=== PATIENT | female | born 1960 | race Caucasian/White ===

== ENCOUNTER 2019-03-09 10:24 | Outpatient (CLI) | payer MEDICARE, OTHER, SELFPAY ==
[2019-03-09 11:12] LABS: Hemoglobin A1C 5.3 % (<5.7)
[2019-03-09 11:13] LABS: Alanine Aminotransferase 9 U/L (4-35); Albumin Level 3.6 g/dL (3.5-5.1); Alkaline Phosphatase 151 U/L (38-126); Aspartate Amino Transferase 18 U/L (14-36); Bilirubin,Total 0.2 mg/dL (0.2-1.3); Blood Urea Nitrogen 17 mg/dL (7-17); Calcium 8.7 mg/dL (8.4-10.2); Carbon Dioxide 26 mmol/L (22-30); Chloride 98 mmol/L (98-107); Cholesterol 167 mg/dL (0-200); Estimated Glomerular Filt Rate 57; Glucose 91 mg/dL (65-105); HDL Direct 65 mg/dL; Potassium 4.8 mmol/L (3.4-5.0); Sodium 132 mmol/L (137-145); Triglycerides 82 mg/dL (<150)
[2019-03-09 11:25] LABS: LDL Cholesterol Direct 88 mg/dL
== END 2019-03-09 10:25 | disposition home or self-care (01) ==
PROVIDERS: PCP Internal Medicine; Visit Provider Nurse Practitioner
DX: E78.2 Mixed hyperlipidemia (principal); E11.9 Type 2 diabetes mellitus without complications
CPT/HCPCS: 36415; 80048; 80061; 80076; 83036

== ENCOUNTER 2019-03-11 16:05 | Outpatient (CLI) | payer MEDICARE, OTHER, SELFPAY ==
--- NOTE | ~2019-03-11 | XR_ITS ---
XR foot LT min 3V 03/11/2019 16:33 Indication: Left foot pain after recent fall Procedure: 4 views left foot Comparison: Comparison to multiple prior studies sequentially, with oldest reviewed study dated 07/2018. Findings: There is an acute minimally displaced transverse fracture fourth metatarsal diaphysis. Ther e are healing distal tibial and fibular metadiaphyseal fractures. Osteopenia. 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 Mild hallux valgus. There is periosteal reaction along the third metata rsal. Lisfranc joint intact. There are degenerative calcaneal enthesophytes. There are arterial calci fications. There are moderate degenerative changes of the midfoot. Impression: 1: Acute minimally displaced extra-articular fracture left fourth metatarsal. 2: Healing distal tibial and fibular metadiaphyseal fractures. Reviewed, dictated and finalized at location A. [employer]IST Impression: 1: Acute minimally displaced extra-articular fracture left fourth metatarsal. 2: Healing distal tibial and fibular metadiaphyseal fractures.
== END 2019-03-11 16:06 | disposition home or self-care (01) ==
LOC: ANHIMG 16:11
PROVIDERS: PCP Internal Medicine; Visit Provider Internal Medicine
DX: M79.672 Pain in left foot (principal); S92.342A Displaced fracture of fourth metatarsal bone, left foot, initial encounter for closed fracture; S82.392D Other fracture of lower end of left tibia, subsequent encounter for closed fracture with routine healing; S82.832D Other fracture of upper and lower end of left fibula, subsequent encounter for closed fracture with routine healing
CPT/HCPCS: 73630

== ENCOUNTER 2019-03-30 05:09 | Day surgery (SDC) | payer MEDICARE, OTHER, SELFPAY ==
[2019-03-30] VITALS (9 sets, daily range): BP systolic 127–166; BP diastolic 66–98; PULSE 72–78; RESP 16–18; TEMP 36.6–37.1; O2SAT 98–100; BMI 29.6
[2019-03-30 07:57] LABS: Basophils Percent Auto 0.3 % (0.2-1.2); Eosinophils Percent Auto 0.3 % (0-4.4); Hematocrit 29.3 % (37.0-47.0); Hemoglobin 8.9 g/dL (12.0-15.0); Immature Granulocyte Absolute 0.04 K/mm3 (0.00-0.031); Immature Granulocyte Percent A 0.5 % (0-0.5); Lymphocytes Absolute Auto 0.79 K/mm3 (0.9-3.2); Lymphocytes Percent Auto 10.3 % (18.3-44.2); Mean Corpuscular HGB Conc 30.4 g/dl (32-36); Mean Corpuscular Hemoglobin 25.9 pg (26-34); Mean Corpuscular Volume 85.4 fl (80-100); Mean Platelet Volume 9.9 fl (7.4-10.4); Monocytes Absolute Auto 0.7 K/mm3 (0.1-0.6); Monocytes Percent Auto 9.6 % (2.6-8.5); Neutrophils Absolute Auto 6.1 K/mm3 (1.3-6.7); Platelet Count Result 254 k/mm3 (150-375); Red Blood Count 3.43 M/mm3 (4.2-5.4); Red Cell Distribution Width 16.2 % (11.5-14.5); White Blood Count 7.7 K/mm3 (4.5-10.0)
[2019-03-30 08:08] LABS: INR 0.9; Prothrombin Time 12.3 Seconds (11.1-14.7)
[2019-03-30 08:14] LABS: Blood Urea Nitrogen 15 mg/dL (7-17); Calcium 9.2 mg/dL (8.4-10.2); Carbon Dioxide 24 mmol/L (22-30); Chloride 102 mmol/L (98-107); Estimated CRCL calculation 46 ml/min; Estimated Glomerular Filt Rate 51; Glucose 92 mg/dL (65-105); Potassium 4.7 mmol/L (3.4-5.0); Sodium 136 mmol/L (137-145)
--- NOTE | 2019-03-30 08:58 | WPDMODSED ---
Moderate Sedation Note-Pt Data Patient Data Diagnosis: Atypical chest pain abnormal nuclear stress test echocardiographic evidence of pulmonary hypertension Present Complaint: intermittent chest pain Procedure to be performed/Plan: right and left heart catheterization Allergies Allergy/AdvReac Type Severity Reaction Status Date / Time No Known Allergies Allergy Verified 03/25/19 11:21 Home Medications Medication Instructions Recorded Confirmed Type gabapentin 300 mg capsule 300 mg PO TID #270 cap 01/04/19 03/29/19 Rx metformin 500 mg tablet 500 mg PO BID #180 tablet 01/04/19 03/29/19 Rx aripiprazole [Abilify] 2 mg PO DAILY 02/23/19 03/29/19 History hydrocodone-acetaminophen 7.5 - 325 tablet PO TID 02/23/19 03/29/19 History buspirone 15 mg tablet 15 mg PO DAILY tablet 03/11/19 03/29/19 History escitalopram oxalate 20 mg tablet 20 mg PO DAILY tablet 03/11/19 03/29/19 History lisinopril 5 mg tablet 5 mg PO DAILY tablet 03/11/19 03/29/19 History naproxen 500 mg tablet 500 mg PO BID PRN tablet 03/11/19 03/29/19 History pravastatin 20 mg tablet 20 mg PO DAILY tablet 03/11/19 03/29/19 History ropinirole 0.5 mg tablet 1 mg PO DAILY #90 tablet 03/11/19 03/29/19 Rx dextroamphetamine-amphetamine ER 30 mg PO DAILY #30 cap 03/15/19 03/29/19 Rx 30 mg 24hr capsule,extend release cyclobenzaprine 10 mg tablet 10 mg PO TID PRN #270 tablet 03/25/19 03/29/19 Rx aspirin [Aspir-81] 81 mg PO DAILY 03/29/19 03/29/19 History biotin-keratin [Biotin Plus See Rx Instructions .ROUTE .COMPLEX 03/29/19 03/29/19 History Keratin] cholecalciferol (vitamin D3) 5,000 unit PO DAILY 03/29/19 03/29/19 History cranberry 400 mg PO DAILY 03/29/19 03/29/19 History docusate sodium [Stool Softener] 50 mg PO BID 03/29/19 03/29/19 History omeprazole 40 mg PO DAILY 03/29/19 03/29/19 History sumatriptan succinate [Imitrex] 50 mg PO ONCE PRN 03/29/19 03/29/19 History suvorexant [Belsomra] 20 mg PO HS 03/29/19 03/29/19 History Current Medications: Active Medications Sodium Chloride (Normal Saline Iv) 500 mls @ 100 mls/hr IV CONT .Q5H [facility] Sedation/Anesthesia: No previous sedation/anesthesia problems (including family history). [facility] Social History Social History Smoking status: Never smoker Alcohol intake: never Substance use: unknown Gender identity (if verbalized by the patient): Female Mod Sed Physical Exam Physical Exam Pre Procedural Exam: Normal: Neck, Throat, Airway, Lungs, Heart Size, Heart Rate, Heart Rhythm, Neuro Exam and Extremities and Variation: Appearance ( obese white female appearing her stated age in no distress) Hours since solid foods: 12 Hours since liquid intake: 12 Internal Medicine - PN: Obj Da Vital Signs Vital Signs: Vital Signs - 24 hr 03/30/19 07:54 Temperature 36.9 C Pulse Rate 72 Respiratory Rate 16 Blood Pressure 162/75 H Pulse Oximetry 99 Intake/Output Intake/Output: Intake & Output 03/27/19 03/28/19 03/29/19 03/30/19 23:59 23:59 23:59 23:59 Intake Total 0 Output Total 0 Balance 0 Meds/Results Medications: Active Medications Generic Name Dose Route Start Last Admin Trade Name Freq PRN Reason Stop Dose Admin Sodium Chloride 500 mls @ 100 mls/hr 03/30/19 06:55 Normal Saline Iv IV CONT .Q5H [facility] Labs CBC & Chem 7: 03/30/19 07:51 03/30/19 07:51 Labs: Laboratory Results - last 24 hr 03/30/19 03/30/19 03/30/19 07:51 07:51 07:51 WBC 7.7 RBC 3.43 L Hgb 8.9 L Hct 29.3 L MCV 85.4 MCH 25.9 L MCHC 30.4 L RDW 16.2 H Plt Count 254 MPV 9.9 Immature Gran % (Auto) 0.5 Neut % (Auto) 79.0 H Lymph % (Auto) 10.3 L Warren % (Auto) 9.6 H Eos % (Auto) 0.3 Baso % (Auto) 0.3 Lymph # (Auto) 0.79 L Warren # (Auto) 0.7 H Eos # (Auto) 0.0 Baso # (Auto) 0.0 Abs Immat Gran (auto) 0.04 H Absolute Neuts (auto) 6.1 Absolute Nucl
--- NOTE | 2019-03-30 09:45 | WPDCARDPROC ---
Cardiac Cath Procedure Note Date of procedure:: 03/30/19 Performing physician:: Donny Peters MD Indication:: intermittent chest pain abnormal nuclear stress test echocardiographic evidence of pulmonary hypertension Brief clinical history:: 59-year-old woman with history of intermittent chest pain which by history seems atypical, nonexertional. A nuclear stress test was abnormal suggesting an anterior ischemic defect. For this reason angiography has been recommended. Because echocardiogram suggests pulmonary hypertension right heart catheterization has also been requested. Procedure Procedure performed:: Right and left heart catheterization Angio-Seal to right femoral artery Sedation/Medication given:: fentanyl 50 mg Versed 2 mg case start time 9:13 a.m. case end time 9:43 a.m. sedation provided by Job Benoit RN, trained observer Access site:: right femoral artery, right femoral vein Estimated blood loss:: 20-30 cc Procedure note:: patient was brought to the cardiac catheterization lab in the postabsorptive state the right femoral triangle was prepared in the usual fashion. Anesthesia was provided with 1% lidocaine infiltrated locally using the modified Seldinger technique a 5 [place] sheath was placed into the femoral artery and then S7 [place] sheath into the femoral vein. Right heart catheterization was then performed using a balloon tip [place] catheter demonstrating right-sided hemodynamics and also injecting thermodilution cardiac outputs. Following this the [place] catheter was withdrawn and a 5 [place] angle pigtail catheter was placed into the arterial circulation. The left ventricle was injected used in the CHILDS projection and left-sided hemodynamics and pullback pressures across the aortic valve were also collected. A 5 [place] FL4 catheter was used to engage inject the left coronary in multiple projections. A 5 [place] JR4 catheter was placed into the aortic root and I was unable to satisfactorily engage the RCA ostium. This was then withdrawn and a 5 [place] WRP catheter was easily engaged into the right coronary and which was then injected orthogonal projections. Procedure was then terminated angiogram was done of the femoral artery through the sheath after which an Angio-Seal device was deployed at the site of the arterial puncture with a good hemostatic result. During the procedure I did administer 20 mg of intravenous labetalol for systemic hypertension. Findings:: Right atrial pressure is 7 mmHg right ventricle 40/ 5 end-diastolic pressure 10. pulmonary artery 40 over 18 pulmonary capillary wedge pressure 17 central aorta 206 over 94 left ventricle 206 over 3 and diastolic 24 for mode thermodilution cardiac output measured 6.0 liters/minute giving an index of 3.44 the left ventricle is normal in size all segments contract appropriately the global ejection fraction is in the vicinity of 50% by visual estimation there were no regional wall motion abnormalities. The left main coronary artery is short and widely patent immediately bifurcating into the LAD and circumflex the LAD is a medium caliber vessel which is quite tortuous but otherwise angiographically normal. Circumflex is a medium caliber vessel giving rise to the marginal branches and posterolateral branches. The circumflex is smooth and angiographically unremarkable right coronary artery is dominant to the posterior circulation is of medium caliber this angiographically appears to be smooth and normal the RPDA is small but does not appear to be diseased Conclusion:: angiographically non diseased coronary arteries with right coronary dominant circulation preserved left ventricular systolic function marked systemic hypertension with elevated LVEDP modestly elevated pulmonary artery pressures normal cardiac output
--- NOTE | 2019-03-30 12:15 | SUR.PHASEII ---
2 HOURS BEDREST COMPLETE. UP TO BATHROOM TO VOID. STEADY GAIT. RETURNED TO RECLINER AT BEDSIDE. NO NEW CHANGES. VSS. WILL CONTINUE TO MONITOR. LUNCH SERVED. AT BEDSIDE.
--- NOTE | 2019-03-30 14:20 | SUR.PHASEII ---
DRESSED FOR DISCHARGE HOME. REVIEWED DISCHARGE INSTRUCTIONS, WOUND CARE, AND FOLLOW UP W/ PT. AND . ALL QUESTIONS ANSWERED. VOICED UNDERSTANDING OF ALL.
--- NOTE | 2019-03-30 14:27 | SUR.PHASEII ---
DISCHARGED HOME, OUT VIA WC WITH ALL PERSONAL BELONGINGS AND DISCHARGE INSTRUCTIONS TO 'S WAITING CAR. DENIES PAIN OR SOB. STEADY GAIT. STRONG R. PEDAL PULSE. NO DISTRESS NOTED.
== END 2019-03-30 14:27 | disposition home or self-care (01) ==
PROVIDERS: PCP Internal Medicine; Visit Provider Specialist
PROC: 4A023N8 Measurement of Cardiac Sampling and Pressure, Bilateral, Percutaneous Approach (ICD-10-PCS; CPT 93453; principal; 2019-03-30 08:30)
DX: R94.39 Abnormal result of other cardiovascular function study (principal); R07.89 Other chest pain; I10 Essential (primary) hypertension; D64.9 Anemia, unspecified; E11.9 Type 2 diabetes mellitus without complications; E78.5 Hyperlipidemia, unspecified; Z79.82 Long term (current) use of aspirin; Z79.84 Long term (current) use of oral hypoglycemic drugs
CPT/HCPCS: 36415; 80048; 85025; 85610; 93460; C1760; C1887; C1894; G0269; J1644; J2250; J3010; J7040

== ENCOUNTER 2019-04-06 14:19 | Outpatient (CLI) | payer MEDICARE, OTHER, SELFPAY ==
--- NOTE | 2019-04-19 02:30 | SLEEP_ITS ---
Basic Nocturnal Polysomnogram DATE OF STUDY: 04/06/2019 ORDERING PHYSICIAN: Ezequiel Del Toro M.D. REASON FOR THE STUDY: Hypersomnia. HISTORY: The patient is a 59-year-old female, 63 inches tall, weighing 162 pounds for a body mass index of 28.7. She has problems with restless leg sensation for many years. She does not awaken from sleep short of breath. Occasionally, she awakens at night with heartburn, belching, or coughing. She rarely snores and says it is never loud enough for others to complain about it. She occasionally has trouble sleeping with a cold, does not gasp for breath at night. She occasionally has problems witnessed by others with her breathing at night. She does not sweat excessively at night and does not notice her heart pounding irregularly at night. She occasionally falls asleep during the day, occasionally involuntarily, rarely while driving. She does not fall asleep with physical effort and does not have loss of muscle tone with strong emotion. She does not have daytime difficulties due to excessive sleepiness. She describes herself as a [id number] grandmother. She does not have paralysis on waking or falling asleep. She occasionally has vivid dreamlike scenes upon awakening or falling asleep. She is never afraid to go to sleep. She does not have nightmares. She rarely remembers her dreams. She frequently has racing thoughts. She rarely feels sad or depressed. She frequently has anxiety. She occasionally has muscular tension. She constantly notices parts of her body jerking. She occasionally kicks at night. She rarely has crawly achy feelings in her legs. She frequently has leg pain at night. She does not have morning jaw pain. She frequently is bothered by pain during the day and is awakened by pain at night. She does not wake up feeling stiff in the morning. She occasionally has sore achy muscles. She rarely wakes up with pain in the neck and spine. She has stomach problems, fatigue, insomnia, concentration difficulties, and headaches. Normal bedtime is between 1 and 2 a.m. It takes a different amount of time to fall asleep under different circumstances. She typically wakes up 3 times at night. She will go to the bathroom and get a drink. She usually gets 4-5 hours of sleep at night. She wakes up during the day between 8:30 and 9 a.m. Weekend schedule is similar. She describes herself as a light sleeper. She sometimes takes naps. A short nap may be refreshing. She says she consistently feels good in the morning. MEDICAL COMORBIDITIES: Chest pain, restless legs, hypertension, syncopal episodes, history of hyponatremia, anemia requiring iron infusions, diabetes mellitus, hyperlipidemia, arthritis, gastroesophageal reflux disease, pulmonary hypertension with a right ventricular systolic pressure 47 on an echo on 04/03/2019. EF 75%. MEDICATIONS: 1. Adderall XR 25 mg 1 tablet in the morning. 2. Xanax 1 mg p.r.n. 3. Abilify 2 mg a day. 4. Aspirin 325 mg a day. 5. Belsomra 20 mg to take at bedtime. 6. Biotin 5000 mcg daily. 7. Buspirone 15 mg t.i.d. 8. Cholecalciferol (vitamin D3) 1 daily. 9. Citalopram 10 mg daily. 10. Cranberry with ascorbic acid 1 capsule daily. 11. Cyclobenzaprine 10 mg 3 times a day as needed. 12. Fluticasone nasal spray 50 mcg 2 sprays each nostril daily. 13. Gabapentin 300 mg 4 times a day. 14. Hydrocodone/acetaminophen 7.5/325 one tablet as needed for 30 days. 15. Lisinopril 5 mg a day. 16. Metformin 500 mg in the morning and the evening meal. 17. Naprosyn 500 mg twice a day with food. 18. Omeprazole 40 mg a day. 19. Pravastatin 20 mg a day. 20. Ropinirole 0.5 mg at bedtime. 21. Rosuvastatin 5 mg daily. 22. Sodium chloride tablets 1 g by mouth twice a day. 23. Sumatriptan 50 mg p.r.n. head
== END 2019-04-06 14:20 | disposition home or self-care (01) ==
LOC: ANHCSM 06-23 14:19
PROVIDERS: PCP Internal Medicine; Visit Provider Internal Medicine Cardiovascular Disease
DX: G47.10 Hypersomnia, unspecified (principal)
CPT/HCPCS: 95810

== ENCOUNTER 2019-05-10 13:14 | Outpatient (CLI) | payer MEDICARE, OTHER, SELFPAY ==
[2019-05-10 14:33] LABS: Blood Urea Nitrogen 17 mg/dL (7-17); Carbon Dioxide 30 mmol/L (22-30); Chloride 91 mmol/L (98-107); Estimated Glomerular Filt Rate 57; Glucose 84 mg/dL (65-105); Potassium 4.9 mmol/L (3.4-5.0); Sodium 125 mmol/L (137-145)
== END 2019-05-10 13:15 | disposition home or self-care (01) ==
LOC: ANHLAB 13:25
PROVIDERS: PCP Internal Medicine; Visit Provider Internal Medicine Cardiovascular Disease
DX: E11.59 Type 2 diabetes mellitus with other circulatory complications (principal); I10 Essential (primary) hypertension
CPT/HCPCS: 36415; 80048

== ENCOUNTER 2019-05-26 12:45 | Outpatient (CLI) | payer MEDICARE, OTHER, SELFPAY ==
[2019-05-26 13:57] LABS: Blood Urea Nitrogen 20 mg/dL (7-17); Calcium 8.7 mg/dL (8.4-10.2); Carbon Dioxide 28 mmol/L (22-30); Chloride 87 mmol/L (98-107); Estimated Glomerular Filt Rate 51; Glucose 80 mg/dL (65-105); Potassium 5.6 mmol/L (3.4-5.0); Sodium 120 mmol/L (137-145)
== END 2019-05-26 12:46 | disposition home or self-care (01) ==
PROVIDERS: PCP Internal Medicine; Visit Provider Internal Medicine Cardiovascular Disease
DX: E87.1 Hypo-osmolality and hyponatremia (principal)
CPT/HCPCS: 36415; 80048

== ENCOUNTER 2019-05-26 16:50 | Emergency (ER) | payer MEDICARE, OTHER, SELFPAY ==
[2019-05-26 17:04] VITALS: BP 126/71; PULSE 85; RESP 16; TEMP 36.5; O2SAT 100
--- NOTE | 2019-05-26 17:07 | ECG_ITS ---
Measurements Intervals Snowflake Rate: 83 P: 17 PA: 139 QRS: 17 QRSD: 93 T: 45 QT: 349 QTc: 411 Interpretive Statements SINUS RHYTHM MINIMAL Q WAVES- INFERIOR LEADS BASELINE WANDER- V4-V6 BORDERLINE ECG Electronically Signed On 05-27-2019 7:03:51 CDT by Saul Pozo D.O.
[2019-05-26 17:28] VITALS: BP 108/57; PULSE 78
--- NOTE | 2019-05-26 17:29 | ED.RECABL ---
HPI - Recheck/Abnormal Lab/Rx General Chief Complaint: Recheck/Abnormal Lab/Rx Stated Complaint: abnormal lab results Time Seen by Provider: 05/26/19 17:05 Source: patient Mode of arrival: ambulatory Limitations: no limitations History of Present Illness HPI narrative: Patient is a 59-year-old female who presents to the emergency department with complaint of elevated potassium. Patient states she had blood work done today ordered by her dye weigher and was told her sodium was low and her potassium was high and she should be evaluated in the emergency department. Patient states her blood pressure medication was changed approximately a month or so ago which is what prompted the lab work to be completed today. Patient reports she was on lisinopril 5 mg daily and that was increased to 20 mg daily. MD complaint: abnormal lab Returns today for: called because of abnormal lab/test Context: called for abnormal lab result Associated symptoms: none Related Data Home Medications Medication Instructions Recorded Confirmed aripiprazole [Abilify] 2 mg PO DAILY 02/23/19 03/29/19 hydrocodone-acetaminophen 7.5 - 325 tablet PO TID 02/23/19 03/29/19 buspirone 15 mg tablet 15 mg PO DAILY tablet 03/11/19 03/29/19 escitalopram oxalate 20 mg tablet 20 mg PO DAILY tablet 03/11/19 03/29/19 naproxen 500 mg tablet 500 mg PO BID PRN tablet 03/11/19 03/29/19 Belsomra 20 mg PO HS 03/29/19 03/29/19 Biotin Plus Keratin See Rx Instructions .ROUTE .COMPLEX 03/29/19 03/29/19 Stool Softener 50 mg PO BID 03/29/19 03/29/19 aspirin [Aspir-81] 81 mg PO DAILY 03/29/19 03/29/19 cholecalciferol (vitamin D3) 5,000 unit PO DAILY 03/29/19 03/29/19 cranberry 400 mg PO DAILY 03/29/19 03/29/19 sumatriptan succinate [Imitrex] 50 mg PO ONCE PRN 03/29/19 03/29/19 Allergies Allergy/AdvReac Type Severity Reaction Status Date / Time No Known Allergies Allergy Verified 05/26/19 17:06 Review of Systems Review of Systems: All systems reviewed & are unremarkable except as noted in HPI and below Constitutional: Constitutional: Denies fever(s) ENT: Reports nasal discharge (Mild rhinorrhea) Cardiovascular: Cardiovascular: Denies chest pain Respiratory: Respiratory: Denies cough and Denies dyspnea Gastrointestinal: Gastrointestinal: Denies diarrhea, Denies nausea and Denies vomiting PMFSH Past Medical History Medical History (Updated 05/26/19 @ 20:09 by Janette Feliz MD) Anxiety and depression Arthritis Attention deficit disorder Bleeding gums Chronic low back pain Diabetes Essential (primary) hypertension GERD (gastroesophageal reflux disease) History of frequent headaches Hx of fracture of hip AB Hypercholesteremia Iron deficiency anemia Mixed hyperlipidemia Restless legs syndrome Type 2 diabetes mellitus with stage 1 chronic kidney disease Vision loss Surgical History Surgical History (Updated 05/26/19 @ 17:36 by Janette Feliz MD) History of bilateral knee replacement History of gastric bypass History of total hip replacement AB Social History Social History Smoking status: Never smoker Alcohol intake: never Substance use: unknown Gender identity (if verbalized by the patient): Female Exam Const: General: cooperative, no acute distress and alert Nutritional Appearance: well nourished Orientation/consciousness: patient oriented x3 Limitations: no limitations HENMT: Mouth: Yes lip normal and Yes moist mucous membranes Resp: Effort & Inspection: normal respiratory effort Auscultation: clear to auscultation bilaterally Cardio: Rate: regular rate Rhythm: regular rhythm GI: GI Palp: Yes Soft to palpation and No Tenderness to palpation present (GI) Auscultation: normal bowel sounds Skin: General skin exam: normal color Neuro: General: patient oriented x3 Cognition (Neuro): normal cognition Speech: normal speech Extrem: General: normal to inspection,
[2019-05-26 17:38] VITALS: BP 106/62; BP 109/72; PULSE 83; PULSE 86
[2019-05-26 17:44] LABS: Alanine Aminotransferase 11 U/L (4-35); Albumin Level 3.8 g/dL (3.5-5.1); Alkaline Phosphatase 196 U/L (38-126); Aspartate Amino Transferase 23 U/L (14-36); Bilirubin,Total 0.2 mg/dL (0.2-1.3); Blood Urea Nitrogen 18 mg/dL (7-17); Calcium 8.3 mg/dL (8.4-10.2); Carbon Dioxide 25 mmol/L (22-30); Chloride 87 mmol/L (98-107); Estimated CRCL calculation 52 ml/min; Estimated Glomerular Filt Rate 57; Glucose 78 mg/dL (65-105); Magnesium 1.6 mg/dL (1.6-2.3); Phosphorus 3.7 mg/dL (2.5-4.5); Potassium 5.7 mmol/L (3.4-5.0); Sodium 119 mmol/L (137-145)
[2019-05-26 17:47] LABS: Basophils Percent Auto 0.8 % (0.2-1.2); Eosinophils Absolute Auto 0.4 K/mm3 (0-0.3); Eosinophils Percent Auto 7.1 % (0-4.4); Hematocrit 31.6 % (37.0-47.0); Hemoglobin 10.4 g/dL (12.0-15.0); Immature Granulocyte Absolute 0.01 K/mm3 (0.00-0.031); Immature Granulocyte Percent A 0.2 % (0-0.5); Lymphocytes Absolute Auto 0.91 K/mm3 (0.9-3.2); Lymphocytes Percent Auto 17.4 % (18.3-44.2); Mean Corpuscular HGB Conc 32.9 g/dl (32-36); Mean Corpuscular Hemoglobin 28.7 pg (26-34); Mean Corpuscular Volume 87.1 fl (80-100); Mean Platelet Volume 9.3 fl (7.4-10.4); Monocytes Absolute Auto 0.6 K/mm3 (0.1-0.6); Monocytes Percent Auto 11.5 % (2.6-8.5); Neutrophils Absolute Auto 3.3 K/mm3 (1.3-6.7); Platelet Count Result 222 k/mm3 (150-375); Red Blood Count 3.63 M/mm3 (4.2-5.4); Red Cell Distribution Width 16.8 % (11.5-14.5); White Blood Count 5.2 K/mm3 (4.5-10.0)
[2019-05-26] MEDS: SODIUM CHLORIDE 0.9% IV 1,000 ML 999 ML IV CONT (17:53)
[2019-05-26 19:13] LABS: Add Urine Microscopic? NO; Appearance Urine Clear (Clear); Bilirubin Urine Negative (Negative); Blood Urine Negative (Negative); Color Urine Colorless (Yellow); Glucose Urine UA Negative (Negative); Ketones Urine Negative (Negative); Leukocyte Esterase Ur Negative LEU/UL (Negative); Nitrate Urine Negative (Negative); Protein Urine Negative (Negative); Specific Grav Ur 1.008 (1.001-1.035); Urobilinogen Urine Negative mg/dL (<2.0)
[2019-05-26 19:38] VITALS: BP 113/67; PULSE 89; RESP 20; TEMP 36.4; O2SAT 100
[2019-05-26 20:23] VITALS: BP 118/63; PULSE 88; RESP 11; TEMP 36.6; O2SAT 98
== END 2019-05-26 20:58 | disposition home or self-care (01) ==
PROVIDERS: Emergency Provider Emergency Medicine; PCP Internal Medicine
DX: E87.1 Hypo-osmolality and hyponatremia (principal); E87.5 Hyperkalemia; F41.8 Other specified anxiety disorders; M19.90 Unspecified osteoarthritis, unspecified site; F98.8 Other specified behavioral and emotional disorders with onset usually occurring in childhood and adolescence; E78.2 Mixed hyperlipidemia; D50.9 Iron deficiency anemia, unspecified; G25.81 Restless legs syndrome; E11.22 Type 2 diabetes mellitus with diabetic chronic kidney disease; I12.9 Hypertensive chronic kidney disease with stage 1 through stage 4 chronic kidney disease, or unspecified chronic kidney disease; N18.1 Chronic kidney disease, stage 1; Z96.653 Presence of artificial knee joint, bilateral; Z96.643 Presence of artificial hip joint, bilateral; Z98.84 Bariatric surgery status; Z79.82 Long term (current) use of aspirin
CPT/HCPCS: 36415; 80048; 80053; 81003; 83735; 84100; 85025; 93005; 96360; 96361; 99283; J7030

== ENCOUNTER 2019-05-30 10:30 | Outpatient (CLI) | payer MEDICARE, OTHER, SELFPAY ==
[2019-05-30 11:14] LABS: Blood Urea Nitrogen 14 mg/dL (7-17); Calcium 8.9 mg/dL (8.4-10.2); Carbon Dioxide 28 mmol/L (22-30); Chloride 89 mmol/L (98-107); Estimated Glomerular Filt Rate 57; Glucose 89 mg/dL (65-105); Potassium 5.6 mmol/L (3.4-5.0); Sodium 123 mmol/L (137-145)
[2019-05-30 11:30] LABS: Sodium Urine Random 37 meq/L
[2019-06-01 04:46] LABS: Osmolality, Urine 171 mOsm/kg (50-1200)
== END 2019-05-30 10:31 | disposition home or self-care (01) ==
PROVIDERS: PCP Internal Medicine; Visit Provider Internal Medicine
DX: E87.1 Hypo-osmolality and hyponatremia (principal)
CPT/HCPCS: 36415; 80048; 83935; 84300

== ENCOUNTER 2019-06-09 11:22 | Outpatient (CLI) | payer MEDICARE, OTHER, SELFPAY ==
[2019-06-09 11:54] LABS: Blood Urea Nitrogen 11 mg/dL (7-17); Calcium 8.8 mg/dL (8.4-10.2); Carbon Dioxide 29 mmol/L (22-30); Chloride 90 mmol/L (98-107); Estimated Glomerular Filt Rate > 60; Glucose 87 mg/dL (65-105); Potassium 4.9 mmol/L (3.4-5.0); Sodium 123 mmol/L (137-145)
== END 2019-06-09 11:23 | disposition home or self-care (01) ==
LOC: ANHLAB 11:25
PROVIDERS: PCP Internal Medicine; Visit Provider Internal Medicine
DX: E87.1 Hypo-osmolality and hyponatremia (principal); E87.5 Hyperkalemia
CPT/HCPCS: 36415; 80048

== ENCOUNTER 2019-07-13 18:09 | Emergency (ER) | payer MEDICARE, OTHER, SELFPAY ==
--- NOTE | ~2019-07-13 | XR_ITS ---
EXAMINATION: XR shoulder LT min 2V, XR humerus LT EXAM DATE: 07/13/2019 18:44 (accession [id number]), 07/13/2019 18:43 (accession [id number]) INDICATION: Initial encounter following injury, with pain of the left shoulder. TECHNIQUE: The following left shoulder projections obtained: frontal projection with internal rotatio n, frontal projection with external rotation, Grashey, and scapular Y view (4+ views). 2 orthogonal projections left humerus. FINDINGS: There is acute oblique fracture through the left humeral neck with mild posterior angulatio n and mild anterior displacement. There is mild comminution. Scapula, acromioclavicular joints appear intact. There is moderate left acromioclavicular joint primary osteoarthritis. IMPRESSION: Acute mildly comminuted left humeral neck fracture. Mild angulation and displacement. Reviewed, dictated and finalized at location A. IMPRESSION: Acute mildly comminuted left humeral neck fracture. Mild angulatio n and displacement.
--- NOTE | ~2019-07-13 | CT_ITS ---
EXAMINATION: CT lumbar spine wo con EXAM DATE: 07/13/2019 19:33 INDICATION: Initial encounter following injury, with pain of the fall, low back pain. TECHNIQUE: Spiral CT lumbar spine was performed without contrast. Axial, coronal and sagittal images of the lumbar spine were reviewed. The dose-length product (DLP) for this examination was 1188.72 mGy -cm. The exposure was tailored according to patient size (auto mA exposure control), and iterative r econstruction (ASIR) was used as additional dose reduction technique. Comparison is made to prior exa mination from 06/17/2016. FINDINGS: There is moderate bilateral sacroiliac primary osteoarthritis. There is no evidence of acute lumbar f racture or spondylolysis. There is no disc space widening or traumatic vertebral body subluxation meeks spected. Paraspinal soft tissue is unremarkable. Moderate-sized thoracolumbar endplate osteophytes. Mild to moderate thoracolumbar disc disease. The vertebral bodies are aligned in the AP dimension. O verall moderate facet arthropathy. A detailed level by level evaluation of spondylosis can be added a s addendum if requested. IMPRESSION: 1. Moderate lumbar spondylosis without acute fracture line identified. Reviewed, dictated and finalized at location A.
[2019-07-13 18:15] VITALS: BP 155/91; PULSE 110; RESP 20; TEMP 37.1; O2SAT 97
--- NOTE | 2019-07-13 18:31 | ED.UPPEXIN ---
HPI - Extremity Injury (Upper) General Chief Complaint: Extremity Injury, Upper <Soco Tolbert PA-C - Last Filed: 07/13/19 21:01> Stated Complaint: left shoulder injury <Soco Tolbert PA-C - Last Filed: 07/13/19 21:01> Time Seen by Provider: 07/13/19 18:27 <Soco Tolbert PA-C - Last Filed: 07/13/19 21:01> Source: patient <MONA Jorge Last Filed: 07/13/19 21:01> Mode of arrival: ambulatory <MONA Jorge Last Filed: 07/13/19 21:01> Limitations: no limitations <MONA Jorge Last Filed: 07/13/19 21:01> History of Present Illness HPI narrative: This is a 59 year old female that presents to the ER for left shoulder pain after an injury today. Reports she was walking down the steps outside and missed the last step. Reports falling forward and landing on her left shoulder. Reports history of injury to that shoulder for which she is in physical therapy. Reports she did hit her head, denies loss of consciousness. Denies vision changes, vomiting, numbness or weakness. <Soco Tolbert PA-C - Last Filed: 07/13/19 21:01> Related Data Home Medications: Home Medications Medication Instructions Recorded Confirmed aripiprazole [Abilify] 2 mg PO DAILY 02/23/19 03/29/19 hydrocodone-acetaminophen 7.5 - 325 tablet PO TID 02/23/19 03/29/19 buspirone 15 mg tablet 15 mg PO DAILY tablet 03/11/19 03/29/19 escitalopram oxalate 20 mg tablet 20 mg PO DAILY tablet 03/11/19 03/29/19 naproxen 500 mg tablet 500 mg PO BID PRN tablet 03/11/19 03/29/19 Belsomra 20 mg PO HS 03/29/19 03/29/19 Biotin Plus Keratin See Rx Instructions .ROUTE .COMPLEX 03/29/19 03/29/19 Stool Softener 50 mg PO BID 03/29/19 03/29/19 aspirin [Aspir-81] 81 mg PO DAILY 03/29/19 03/29/19 cholecalciferol (vitamin D3) 5,000 unit PO DAILY 03/29/19 03/29/19 cranberry 400 mg PO DAILY 03/29/19 03/29/19 sumatriptan succinate [Imitrex] 50 mg PO ONCE PRN 03/29/19 03/29/19 <Soco Tolbert PA-C - Last Filed: 07/13/19 21:01> Allergies/Adverse Reactions: Allergies Allergy/AdvReac Type Severity Reaction Status Date / Time No Known Allergies Allergy Verified 07/14/19 14:52 <Soco Tolbert PA-C - Last Filed: 07/13/19 21:01> Review of Systems Review of Systems: Narrative: CONSTITUTIONAL: Denies fever EYES: Denies visual changes MUSCULOSKELETAL: Reports joint pain, and myalgia. NEUROLOGIC: Denies headache, numbness, or weakness. <Soco Tolbert PA-C - Last Filed: 07/13/19 21:01> All systems reviewed & are unremarkable except as noted in HPI and below <Soco Tolbert PA-C - Last Filed: 07/13/19 21:01> [facility] Social History Social History: Social History Smoking status: Never smoker Alcohol intake: never Substance use: unknown Gender identity (if verbalized by the patient): Female <Soco Tolbert PA-C - Last Filed: 07/13/19 21:01> Exam Narrative: Exam Narrative: GENERAL: Well-appearing, well-nourished, and in no acute distress. HEAD: Normocephalic, atraumatic. EYES: PERRLA and EOMI. ENT: Nares clear, no rhinorrhea or epistaxis. Mucous membranes moist. Oropharynx without tonsillar hypertrophy exudate or other lesions. Bilateral TMs pearly campo non-bulging NECK: Supple. No adenopathy or masses. No midline cervical spine tenderness CHEST: Clear to auscultation. No respiratory distress. No wheezes rales or rhonchi HEART: Regular rate and rhythm. No murmur heard. Normal peripheral pulses. BACK: No midline thoracic spine tenderness. Tender to palpation of the midline lumbar spine EXTREMITIES: Normal range of motion, except decreased ROM in the left shoulder due to pain. No edema. Normal radial pulses. Normal sensation SKIN: Warm, dry, no rash. NEURO: No focal deficits. Alert and oriented x3. Cranial nerves II through XII grossly intact PSYCH: Normal mood and affect <Soco Tolbert PA-C - Last Filed: 07/13/19 21:01>
[2019-07-13] MEDS: MORPHINE SULFATE 10 MG/ML AMP IM (20:48)
[2019-07-13 22:15] VITALS: BP 120/80; PULSE 80; RESP 20; TEMP 36.7; O2SAT 99
== END 2019-07-13 22:16 | disposition home or self-care (01) ==
PROVIDERS: Emergency Provider Emergency Medicine; PCP Internal Medicine
DX: S42.212A Unspecified displaced fracture of surgical neck of left humerus, initial encounter for closed fracture (principal); S39.92XA Unspecified injury of lower back, initial encounter; M47.816 Spondylosis without myelopathy or radiculopathy, lumbar region; Z79.82 Long term (current) use of aspirin; W10.9XXA Fall (on) (from) unspecified stairs and steps, initial encounter
CPT/HCPCS: 72131; 73030; 73060; 96372; 99284; A9270; J2270

== ENCOUNTER 2019-07-14 15:34 | Outpatient (CLI) | payer MEDICARE, OTHER, SELFPAY ==
[2019-07-14 16:11] LABS: Hematocrit 35.3 % (37.0-47.0)
[2019-07-14 16:19] LABS: Hemoglobin A1C 5.3 % (<5.7)
[2019-07-14 16:24] LABS: Alanine Aminotransferase 12 U/L (4-35); Alkaline Phosphatase 181 U/L (38-126); Aspartate Amino Transferase 24 U/L (14-36); Bilirubin,Total 0.1 mg/dL (0.2-1.3); Blood Urea Nitrogen 23 mg/dL (7-17); Calcium 8.6 mg/dL (8.4-10.2); Carbon Dioxide 29 mmol/L (22-30); Chloride 98 mmol/L (98-107); Cholesterol 174 mg/dL (0-200); Estimated Glomerular Filt Rate 57; Glucose 108 mg/dL (65-105); HDL Direct 73 mg/dL; Sodium 131 mmol/L (137-145); Triglycerides 77 mg/dL (<150)
[2019-07-14 16:36] LABS: LDL Cholesterol Direct 85 mg/dL
[2019-07-14 16:59] LABS: MALB Creatinine Ratio 6.6 mg/g (0-30); Microalbumin Urine Random 7.5 mg/L (0-16.7)
== END 2019-07-14 15:35 | disposition home or self-care (01) ==
LOC: ANHLAB 15:38
PROVIDERS: PCP Internal Medicine; Visit Provider Internal Medicine
DX: E11.9 Type 2 diabetes mellitus without complications (principal); I10 Essential (primary) hypertension; Z79.899 Other long term (current) drug therapy; E11.22 Type 2 diabetes mellitus with diabetic chronic kidney disease; N18.1 Chronic kidney disease, stage 1; R79.89 Other specified abnormal findings of blood chemistry; E78.5 Hyperlipidemia, unspecified
CPT/HCPCS: 36415; 80053; 80061; 82043; 83036; 84443; 85014; 85018

== ENCOUNTER 2019-08-19 09:29 | Outpatient (CLI) | payer MEDICARE, OTHER, SELFPAY ==
--- NOTE | ~2019-08-19 | US_ITS ---
. EXAMINATION: US retroperitoneal duplex ltd DATE: 08/19/2019 10:22 INDICATION: Hypertension. TECHNIQUE: Multiple grayscale, color Doppler, and pulsed Doppler images of the kidneys and renal mario surinder were obtained. COMPARISON: CT 06/21/2018 FINDINGS: The aorta peak systolic velocity is 109 cm/s. Right kidney measures 8.6 cm. Left kidney measures 8.6 cm. The right renal artery peak systolic velocity is 73 cm/s in the proximal segment and 73 cm/s in t he distal segment. The left renal artery is not well visualized. IMPRESSION: 1. No Doppler evidence of right-sided renal artery stenosis. Left renal artery not well visualized. Note that the CT from 06/21/2018 demonstrates no significant renal artery stenosis. 2. Mild atrophy of the kidneys. Reviewed, dictated and finalized at location A. IMPRESSION: 1. No Doppler evidence of right-sided renal artery stenosis. Left renal artery not well visualized. Note that the CT from 06/21/2018 demonstrates no significa nt renal artery stenosis. 2. Mild atrophy of the kidneys.
== END 2019-08-19 09:30 | disposition home or self-care (01) ==
LOC: ANHIMG 09:36
PROVIDERS: PCP Internal Medicine; Visit Provider Internal Medicine Cardiovascular Disease
DX: E11.59 Type 2 diabetes mellitus with other circulatory complications (principal); I10 Essential (primary) hypertension
CPT/HCPCS: 93976

== ENCOUNTER 2019-09-09 15:04 | Outpatient (CLI) | payer MEDICARE, OTHER, SELFPAY ==
[2019-09-09 16:54] LABS: Iron 59 ug/dL (37-170)
[2019-09-09 17:03] LABS: Percent Iron Saturation 20 % (20-50)
== END 2019-09-09 15:05 | disposition home or self-care (01) ==
LOC: ANHLAB 15:08
PROVIDERS: PCP Internal Medicine; Visit Provider Internal Medicine Medical Oncology
DX: D50.8 Other iron deficiency anemias (principal)
CPT/HCPCS: 36415; 82728; 83540; 83550

== ENCOUNTER 2019-09-12 15:10 | Observation (INO) | payer MEDICARE, OTHER, SELFPAY ==
--- NOTE | ~2019-09-12 | XR_ITS ---
EXAMINATION: XR elbow LT min 3V DATE: 09/12/2019 15:57 INDICATION: Left elbow pain and swelling and decreased range of motion post fall TECHNIQUE: Anteroposterior, two oblique and lateral views of the left elbow were obtained. COMPARISON: Left humerus radiographs dated 07/13/2019 FINDINGS: Impacted transverse supracondylar fracture of the distal left humerus. There is approximately 1 cm la teral displacement and minimal posterior angulation. 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 There is prominent soft tissue swelling abo ut the left elbow. No other fractures identified. IMPRESSION: 1. Impacted mildly displaced transverse supracondylar fracture of the distal left humerus. Reviewed, dictated and finalized at location A. IMPRESSION: 1. Impacted mildly displaced transverse supracondylar fracture of the distal le ft humerus.
--- NOTE | ~2019-09-12 | XR_ITS ---
XR knee LT min 4V DATE: 09/12/2019 15:57 INDICATION: Fall. Pain, bruising and swelling of anterior left knee TECHNIQUE: 4 views COMPARISON: 10/25/2018 MRI left lower leg 08/22/2008 left knee FINDINGS: There is very prominent anterior prepatellar soft tissue swelling of the knee. Intramedullary arpita is noted in the proximal to mid femur. Status post left knee arthroplasty, with normal alignment of the knee joint. No fracture or dislocati on, periosteal reaction or bone destruction is detected. Superior pole patellar enthesopathy. Osteopenia. IMPRESSION: Prominent prepatellar soft tissue swelling; no fracture or dislocation is evident Reviewed, dictated and finalized at location B. IMPRESSION: Prominent prepatellar soft tissue swelling; no fracture or dislocat ion is evident
--- NOTE | ~2019-09-12 | XR_ITS ---
XR foot LT min 3V DATE: 09/12/2019 15:56 INDICATION: Fall. Dorsal left foot pain TECHNIQUE: 4 views COMPARISON: None FINDINGS: Prominent posterior and plantar calcaneal enthesopathy. Diffuse osteopenia. Mild hallux valgus and bunion deformity. There are healed fractures of the distal shafts of the second, third and fourth metatarsal bones. No acute fracture is evident. No dislocation. Posterior and anterior tibial artery calcification. IMPRESSION: Diffuse osteopenia Healing fractures of the second through fourth metatarsal distal shafts Plantar and posterior calcaneal enthesopathy Reviewed, dictated and finalized at location B.
[2019-09-12 15:16] VITALS: BP 173/84; PULSE 98; RESP 22; TEMP 36.6; O2SAT 100
[2019-09-12 15:58] VITALS: BP 151/70; PULSE 82; RESP 18; O2SAT 100
--- NOTE | 2019-09-12 16:30 | PC.NURSE ---
PT STILL C/O PAIN IN HER KNEE AND ELBOW. PT SIG. OTHER STATES THAT HE WOULD LIKE THE PA TO KNOW THAT THE PT TOOK ONE OF HER NORCO 7.5-325 PRIOR TO EMS ARRIVAL AFTER SHE FELL, PT THEN ANGRY THAT HE INFORMED STAFF OF THIS AND HAS ASKED HIM TO LEAVE THE ROOM AT THIS TIME, PT STEPPED TO BATHROOM. YARA COPPOLA INFORMED OF FAMILY'S STATEMENTS AND PT REQUEST, PA STATES SHE WILL NOT BE GIVING PT ANYTHING FURTHER AT THIS TIME, AND IS WAITING TO HEAR BACK FROM ORTHO. PA HAS GIVEN VERBAL ORDER FOR KIMBERLY WRAP TO BE APPLIED TO L KNEE. PT UPDATED.
--- NOTE | 2019-09-12 17:52 | ED.EXTPRO ---
HPI - Extremity Problem General Chief complaint: Extremity Problem,Nontraumatic Stated complaint: left knee, left elbow pain Source: patient Mode of arrival: EMS Limitations: no limitations History of Present Illness HPI Narrative: Patient presents with chief complaint of pain to her left elbow left knee and left toes after falling today. Patient states that she falls recurrently. Patient reports that she is recovering from a shoulder fracture from a fall 6 weeks ago and is now in physical therapy for the shoulder. Patient denies exacerbation of pain to the left shoulder. Patient denies scratching her chin but denies any other impact to her.. Patient denies loss of consciousness, changes in vision or hearing, nausea, vomiting, diarrhea or loss of sensation to her lower extremities. Patient reports that she has had bilateral knee and hip replacements by Dr. Mckeon. She reports Dr. Mckeon is also managing her shoulder. Patient was given a 7.5 [place] prior to being picked up by EMS and she was given an additional 4 mg of morphine via EMS. Related Data Home Medications Medication Instructions Recorded Confirmed aripiprazole [Abilify] 2 mg PO DAILY 02/23/19 09/09/19 hydrocodone-acetaminophen 7.5 - 325 tablet PO TID 02/23/19 09/09/19 buspirone 15 mg tablet 15 mg PO DAILY tablet 03/11/19 09/09/19 escitalopram oxalate 20 mg tablet 20 mg PO DAILY tablet 03/11/19 09/09/19 naproxen 500 mg tablet 500 mg PO BID PRN tablet 03/11/19 09/09/19 Belsomra 20 mg PO HS 03/29/19 09/09/19 Biotin Plus Keratin See Rx Instructions .ROUTE .COMPLEX 03/29/19 09/09/19 Stool Softener 50 mg PO BID 03/29/19 09/09/19 aspirin [Aspir-81] 81 mg PO DAILY 03/29/19 09/09/19 cholecalciferol (vitamin D3) 5,000 unit PO DAILY 03/29/19 09/09/19 cranberry 400 mg PO DAILY 03/29/19 09/09/19 sumatriptan succinate 50 mg tablet 50 mg PO DAILY PRN tablet 09/09/19 09/09/19 Allergies Allergy/AdvReac Type Severity Reaction Status Date / Time adhesive tape AdvReac Other Verified 09/12/19 19:20 Review of Systems Review of Systems: Narrative: CONSTITUTIONAL: Denies fever, chills, or sweats. EYES: Denies visual changes, redness, or discharge. ENT: Denies rhinorrhea, congestion, sore throat, or otalgia. CARDIOVASCULAR: Denies chest pain, palpitations, or edema. RESPIRATORY: Denies cough or dyspnea. GASTROINTESTINAL: Denies abdominal pain, nausea, vomiting, or diarrhea. GENITOURINARY: Denies dysuria or hematuria. SKIN: Denies rash or itching. MUSCULOSKELETAL: Reports left elbow, knee, foot pain NEUROLOGIC: Denies headache, numbness, dizziness, or weakness. PSYCHIATRIC: Denies anxiety or depression. [facility] Social History Social History Smoking status: Never smoker Alcohol intake: never Substance use: unknown Gender identity (if verbalized by the patient): Female Exam Narrative: Exam Narrative: GENERAL: Well-appearing, well-nourished. Patient is morbidly obese. HEAD: Normocephalic, atraumatic. EYES: PERRLA and EOMI. ENT: Nares clear, no rhinorrhea or epistaxis. Mucous membranes moist. Oropharynx without tonsillar hypertrophy exudate or other lesions. Bilateral TMs pearly campo nonbulging NECK: Supple. No adenopathy or masses. CHEST: Clear to auscultation. No respiratory distress. No wheezes rales or rhonchi HEART: Regular rate and rhythm. ABDOMEN: Soft, nontender, nondistended, normal active bowel sounds. EXTREMITIES: Pain and swelling to the lateral aspect of left elbow. Patient refuses range of motion due to discomfort. Patient refused to do any range of motion exercises to left knee. Left knee is swollen with ecchymosis anteriorly. There is no ecchymosis or swelling noted to left toes with patient reports tenderness especially to second metatarsal. SKIN: Warm, dry, no rash. NEURO: No focal deficits. Alert and oriented x3. PSYCH: Normal mood and affect. Course Vital Signs Vital signs: Vital Signs T
--- NOTE | 2019-09-12 18:00 | PC.NURSE ---
pt screaming in room, upon assessment pt screaming stating that she is in pain and cannot understand why she cannot have more morphine. pt stopped screaming when I entered room. pt has ice applied to knee and extremities elevated, splints in place. i informed pt that I will discuss her concerns with the PA and see about pain medication, PA states she will not be writing orders for more narcotics, but will come assess pt venkat.
--- NOTE | 2019-09-12 18:15 | PC.NURSE ---
pt can be heard screaming in her room from nurses station that she is in pain, pt reminded that the pa has been informed of her request for more morphine and has not placed orders yet, awaiting pa to come to bedside for assessment.
--- NOTE | 2019-09-12 18:30 | PC.NURSE ---
ursula yanez at bedside w/ pt discussing options for d/c. pt upset stating that she does not feel comfortable going home and she is in excruciating pain.
[2019-09-12 18:48] VITALS: BP 117/86; PULSE 78; RESP 16; O2SAT 100
--- NOTE | 2019-09-12 19:08 | PC.NURSE ---
PT REPORT GIVEN TO MIKAELA Burns. AT THIS TIME, SHE HAS ASSUMED PT CARE.
[2019-09-12 19:30] VITALS: RESP 18
[2019-09-12 20:00] VITALS: BP 162/66; PULSE 80; RESP 18; TEMP 36.3; O2SAT 100
--- NOTE | 2019-09-12 20:33 | ADMGEN ---
This patient, Regina Woodruff, was admitted to Medical Room 250-01. Patient/family oriented to hospital policies and general routines including ID bracelet, bed and alarms, visiting hours, pain management, procedures, bathroom and other care routines, personal items, smoking policy, room service/diet, and visiting hours. Valuables list has been completed. Information on how to activate the Rapid Response Team has been discussed. Patient/Family are encouraged to report perceived risks to care and to ask questions if they do not understand what they are told or what they should do.
[2019-09-12 23:11] LABS: Glucose Point of Care 218 (65-105)
[2019-09-13] MEDS: MORPHINE SULFATE 4 MG/ML INJ IV PUSH ×3 (00:36→10:39)
[2019-09-13] MEDS: BIOTIN KERATIN 1 EACH XX (02:57)
[2019-09-13] MEDS: Cranberry 400 MG 1 EACH XX (02:57)
[2019-09-13] MEDS: SUMAtriptan SUCCINATE 25 MG TABLET 50 MG PO (03:10)
[2019-09-13] MEDS: CYCLOBENZAPRINE HCL 10 MG TABLET PO ×2 (03:10→16:59)
--- NOTE | 2019-09-13 04:40 | PM.IMHP ---
H&P: HPI History of Present Illness Date/Time: 09/13/19 04:40 Chief complaint: left elbow fracture, left knee effusion Narrative: This is an unfortunate 59 year old morbidly obese Diabetic female who presented to the hospital with a complaint of left elbow and left knee pain after suffering a fall today. The patient recently suffered a proximal left humeral fracture about 6 weeks ago from also falling. The patient describes suffering a mechanical fall yesterday and landed on her left side. She reports scratching her chin as she fell but denies any significant head trauma or loss of consciousness. She also denies any focal neurological deficits. The patient was evaluated in the ER yesterday evening and left elbow xray demonstrated an impacted mildly displaced transverse supracondylar fracture of the distal left humerus. Ortho, Dr. Colon was consulted by ER provider and he instructed them to place her into a posterior splint and have her follow up with him at his office. The patient was very concerned that she could not go home and care for herself. We were asked to admit the patient to the hospital for pain control and to help with placement at SNF as she cannot care for herself. She is only complaining of left elbow and left knee pain tonight. Review of Systems Review of Systems: All systems reviewed & are unremarkable except as noted in HPI and below PMFSH Past Medical History Medical History (Updated 09/13/19 @ 12:28 by TUAN Coronel) Anxiety and depression Arthritis Attention deficit disorder Bleeding gums Chronic low back pain Diabetes Essential (primary) hypertension GERD (gastroesophageal reflux disease) Hematoma of left knee region History of frequent headaches Hx of fracture of hip AB Hypercholesteremia Iron deficiency anemia Mixed hyperlipidemia Postmenopausal Restless legs syndrome Screening for breast cancer Stress fracture Type 2 diabetes mellitus with stage 1 chronic kidney disease Vision loss Weight gain Surgical History Surgical History History of bilateral knee replacement History of gastric bypass History of total hip replacement AB Family History Family History Sibling Malignant neoplasm of prostate Acute myocardial infarction Mother Family history of malignant neoplasm of brain Family history of heart disease in male family member before age 55 Other Diabetes mellitus Family history of allergic disorder Family history of malignant neoplasm Hypertension Social History Social History Smoking status: Never smoker Alcohol intake: never Substance use: never Substance use type: does not use Gender identity (if verbalized by the patient): Female Spiritual care concerns: No Meds Home Medications and Allergies Home Medications Medication Instructions Recorded Confirmed Type gabapentin 300 mg capsule 300 mg PO TID #270 cap 01/04/19 09/12/19 Rx aripiprazole [Abilify] 2 mg PO DAILY 02/23/19 09/12/19 History hydrocodone-acetaminophen 7.5 - 325 tablet PO TID 02/23/19 09/12/19 History buspirone 15 mg tablet 15 mg PO HS tablet 03/11/19 09/13/19 History escitalopram oxalate 20 mg tablet 20 mg PO DAILY tablet 03/11/19 09/12/19 History naproxen 500 mg tablet 500 mg PO BID PRN tablet 03/11/19 09/12/19 History Belsomra 20 mg PO HS PRN 03/29/19 09/12/19 History Biotin Plus Keratin 1 tablet PO DAILY 03/29/19 09/12/19 History Stool Softener 50 mg PO BID 03/29/19 09/12/19 History aspirin [Aspir-81] 81 mg PO DAILY 03/29/19 09/12/19 History cholecalciferol (vitamin D3) 5,000 unit PO DAILY 03/29/19 09/12/19 History cranberry 400 mg PO DAILY 03/29/19 09/12/19 History cyclobenzaprine 10 mg tablet 10 mg PO TID PRN #270 tablet 06/13/19 09/12/19 Rx sumatriptan succinate 50 mg tablet 50 mg PO DAILY PRN
[2019-09-13 05:34] VITALS: BP 146/67; PULSE 88; RESP 20; TEMP 35.9; O2SAT 98
[2019-09-13 08:00] LABS: Glucose Point of Care 87 (65-105)
[2019-09-13] MEDS: ASPIRIN 81 MG ENTERIC TABLET PO (08:59)
[2019-09-13] MEDS: ARIPiprazole 2 MG TABLET PO (08:59)
[2019-09-13] MEDS: CHOLECALCIFEROL 1,000 UNIT TABLET 5000 UNITS PO (09:00)
[2019-09-13] MEDS: GABAPENTIN 300 MG CAPSULE PO ×2 (09:01→12:58)
[2019-09-13] MEDS: ESCITALOPRAM OXALATE 10 MG TABLET 20 MG PO (09:01)
--- NOTE | 2019-09-13 09:38 | PM.CNOR ---
Assessment and Plan Assessment and plan (1) Hematoma of left knee region: Code(s): S80.02XA - Contusion of left knee, initial encounter Status: Acute Assessment and Plan: Radiographs of the left knee today reveal moderate prepatellar swelling. Left TKA in good position, unchanged from previous, no evidence of fracture. On exam, moderate ecchymosis of the left knee consistent with probable pre patella hematoma. discussed condition, nature, etiology and course of natural history. Conservative treatment options reviewed as well as the risks and benefits of each. We will continue to monitor at this time. Patient may use Tobi wrap for comfort. Ice, elevation. We will continue to monitor. We will see patient as an outpatient in 2-3 weeks for reassessment and repeat radiographs. WBAT. (2) Closed fracture of left elbow: Qualifiers: Encounter type: initial encounter Qualified Code(s): S42.402A - Unspecified fracture of lower end of left humerus, initial encounter for closed fracture Code(s): S42.402A - Unspecified fracture of lower end of left humerus, initial encounter for closed fracture Status: Acute Assessment and Plan: History, exam and radiographs reviewed with the patient. Radiographs of the left elbow reveal impacted mildly displaced transverse supracondylar fracture of the distal left humerus. Radiographs reviewed with attending physician, Dr. Oral Mckeon. The fracture type and injury as well as radiographs discussed with the patient and family. Operative and nonoperative treatment options reviewed. The patient elects for non operative treatment at this time. Risk of nonunion, malunion or late displacement discussed. Stiffness, pain and possible dysfunction of the joint discussed. Fracture precautions and activity restrictions reviewed. Recommended continued use of elbow splint at this time. Sling. Ice. Pain control. Nonweightbearing of the left upper extremity. Plan for possible transition to hinged elbow brace in approximately 2-3 weeks. Will see patient back in the office as an outpatient for repeat radiographs and further decision of conservative vs. operative treatment options. Patient may need SNF or acute rehab placement if she is unable to take care of herself with restrictions with the left upper extremity. (3) Stress fracture: Qualifiers: Encounter type: sequela Stress fracture site: foot Laterality: left Qualified Code(s): M84.375S - Stress fracture, left foot, sequela Code(s): M84.30XA - Stress fracture, unspecified site, initial encounter for fracture Status: Acute Assessment and Plan: Radiographs of the left foot reveal healing fractures of the second through fourth metatarsal distal shafts. patient has diffuse osteopenia and recurrent fractures. Patient will need bone mineral density testing and treatment for osteoporosis as an outpatient. She does endorse pain and ecchymosis of the 2nd ray of the left foot at this time. No evidence of new fracture. Recommended patient use a postoperative shoe at this time for pressure offloading. We will follow up with patient to 3 weeks as an outpatient for further assessment. Patient will need follow-up with her primary care physician for bone mineral density screening. Weightbearing as tolerated in the interim. History of Present Illness HPI Consult date: 09/13/19 Requesting physician: Howie Worley MD Consult reason: fracture (Left Elbow ) and other (Left Knee Effusion ) Chief complaint: left elbow fracture, left knee effusion Narrative: 59-year-old female well known to Orthopedic Service with previous bilateral knee replacements. She has a new onset history of a history of left elbow, left knee and left foot pain status post fall yesterday at home. Patient reports that she fell yesterday at approximately 2:30 p.m. after cleaning her house. She slipped over a TV tray from the living room and fell f
[2019-09-13 11:37] LABS: Glucose Point of Care 113 (65-105)
[2019-09-13 14:00] VITALS: BP 138/54; PULSE 88; RESP 15; TEMP 36.9; O2SAT 100
--- NOTE | 2019-09-13 15:00 | PM.DS ---
DS: Admitting Diagnosis Admitting Diagnosis Admitting Diagnosis: Contusion of left knee, initial encounter DS: Discharge Diagnosis Discharge Diagnosis (1) Closed fracture of left elbow: Qualifiers: Encounter type: initial encounter Qualified Code(s): S42.402A - Unspecified fracture of lower end of left humerus, initial encounter for closed fracture Code(s): S42.402A - Unspecified fracture of lower end of left humerus, initial encounter for closed fracture Status: Acute (2) Effusion of bursa of left knee: Code(s): M25.462 - Effusion, left knee Status: Acute (3) Essential (primary) hypertension: Code(s): I10 - Essential (primary) hypertension Status: Chronic (4) Type 2 diabetes mellitus with stage 1 chronic kidney disease: Qualifiers: Diabetes mellitus snf insulin use: without snf use Qualified Code(s): E11.22 - Type 2 diabetes mellitus with diabetic chronic kidney disease; N18.1 - Chronic kidney disease, stage 1 Code(s): E11.22 - Type 2 diabetes mellitus with diabetic chronic kidney disease; N18.1 - Chronic kidney disease, stage 1 Status: Chronic (5) Chronic GERD: Code(s): K21.9 - Gastro-esophageal reflux disease without esophagitis Status: Chronic DS: Summary Hospital Course Reason for hospitalization: 59-year-old female here for left humeral fracture after fall. Please see H&P for details. Hospital Course: patient was seen in the emergency room. No labs drawn. Left elbow x-ray showed an impacted mildly displaced transverse supracondylar fracture of the distal left humerus. Left knee x-ray showed prominent prepatellar soft tissue swelling but no fracture or dislocation. Left foot x-ray showed diffuse osteopenia and healing fractures of the 2nd through 4th metatarsal distal shafts. She did have pain over the 2nd ray. Orthopedics was consulted. Patient was able to be discharged home on 09/13/19 Time Spent with Patient Time attestation: Total time spent providing and/or coordinating discharge services:35 minutes Time spent: Greater than 30 minutes Exam Narrative: Exam Narrative: AF 146/67 88 20 98% ra Gen - NARD Chest - CTA bilaterally, nml RR CV - RRR S1/S2 Abd - Soft, NT/ND, Positive BS Ext - No pedal edema. left upper extremity in a soft cast. Neuro - Normal sensation to the left hand Psych - Nml mood and affect Skin - Warm and dry DS: Data Data Completed and Pending Labs on day of discharge: Labs from last 24 hours 09/13/19 09/13/19 09/12/19 11:32 07:55 20:29 POC Capillary Glucose 113 H 87 218 H Discharge Plan Discharge Attending physician on discharge: Leonard Enriquez Consulting providers: Oral Mckeon Discharging Clinician: Leonard Enriquez Anticipated Discharge Date/Time: 09/13/19 15:06 Patient Disposition: Home Health Service Activity: may shower, no driving, follow weight bearing status and other - see discharge instructions Wound Care Instructions: keep dressing dry Discharge Instructions: Per Care Coordination: Patient is arranged with [facility] - half-way, PT/OT at [phone], RN please fax discharge instructions to [phone] Oral Mckeon: No weight bearing of the LEFT ARM. Continue sling/splint. Do not get splint wet. Move fingers often. Ice/Elevate elbow on pillows. Monitor knee for open wounds, notify office immediately. KIMBERLY wrap as needed. Ice. Elevate. Use post op shoe to the left foot for pain control. Weight bearing as tolerated. Ice. Elevate. Plan to return to our office as an outpatient in 2 weeks for reassessment/reevaluation by Dr. Mckeon. We plan to potentially transition you to a hinged elbow brace at that time pending repeat radiographs. You have an appointment scheduled with Dr. Mckeon at [facility] as indicated below. Please contact our office
--- NOTE | 2019-09-13 16:36 | PCCCNOTE ---
On 09/13/19, the student, [ Kirsten Blunt], provided care and completed [email or web address] documentation on this patient. I have reviewed the student's documentation and agree with the findings.
== END 2019-09-13 17:18 | disposition home health service (06) ==
LOC: ANHED 18:48 → ANH2MED 19:17
PROVIDERS: Admitting Provider Family Medicine; Emergency Provider Emergency Medicine; PCP Internal Medicine; Visit Provider Internal Medicine
DX: S42.412A Displaced simple supracondylar fracture without intercondylar fracture of left humerus, initial encounter for closed fracture (principal); M25.462 Effusion, left knee; S00.83XA Contusion of other part of head, initial encounter; W01.0XXA Fall on same level from slipping, tripping and stumbling without subsequent striking against object, initial encounter; M84.375D Stress fracture, left foot, subsequent encounter for fracture with routine healing; M85.872 Other specified disorders of bone density and structure, left ankle and foot; Z91.81 History of falling; E11.22 Type 2 diabetes mellitus with diabetic chronic kidney disease; I12.9 Hypertensive chronic kidney disease with stage 1 through stage 4 chronic kidney disease, or unspecified chronic kidney disease; N18.1 Chronic kidney disease, stage 1; K21.9 Gastro-esophageal reflux disease without esophagitis; E78.2 Mixed hyperlipidemia; Z79.82 Long term (current) use of aspirin; Z79.84 Long term (current) use of oral hypoglycemic drugs; Z79.899 Other long term (current) drug therapy; Z96.643 Presence of artificial hip joint, bilateral; Z96.653 Presence of artificial knee joint, bilateral; Z98.84 Bariatric surgery status
CPT/HCPCS: 73080; 73564; 73630; 96365; 96375; 96376; 97161; 99285; A9270; G0378; J0131; J2270; J3010

== ENCOUNTER 2019-11-22 13:57 | Outpatient (CLI) | payer MEDICARE, OTHER, SELFPAY ==
--- NOTE | ~2019-11-22 | MM_ITS ---
EXAMINATION: MM screening anya BI w lila HISTORY: Screening TECHNIQUE: Craniocaudal and mediolateral oblique 3-D tomosynthesis images were obtained and synthetic 2-D images were generated. CAD analysis was submitted and interpreted. COMPARISON: Comparison to multiple prior studies sequentially, with oldest reviewed study dated 10/27. BREAST PARENCHYMAL COMPOSITION: There are scattered areas of fibroglandular density. FINDINGS: The right breast is stable without evidence for malignancy. There is developing asymmetry i n the mid outer aspect of the left breast posteriorly. IMPRESSION: 1. Developing left breast asymmetry. 2. Additional mammographic views and possible breast ultrasound are recommended. BI-RADS Category 0: Incomplete: Needs additional imaging evaluation. Reviewed, dictated and finalized at location A. IMPRESSION: 1. Developing left breast asymmetry. 2. Additional mammographic views and possible breast ultrasound are recommended . BI-RADS Category 0: Incomplete: Needs additional imaging evaluation.
--- NOTE | ~2019-11-22 | DEXA_ITS ---
Bone Density Report Name: Regina Woodruff Age: 59 Sex: Female Ethnicity: White Date of : 1960 Indication: postmenopausal; prior fracture; asthma or emphysema; hysterectomy; Referring Provider: Sanam Durham Study: Bone densitometry was performed. Exam Date: November 22, 2019 Accession number: [id number] Bone Density: Region BMD T-score Z-score Classification AP Spine (L1-L4) 1.447 3.6 5.0 Normal World Health Organization criteria for BMD impression classify patients as: Normal (T-score at or above -1.0), Osteopenia (T-score between -1.0 and -2.5), or Osteoporosis (T-score at or below -2.5). Previous Exams: Region Exam Age BMD T-score BMD Change BMD Change Date g/cm2 vs Baseline vs Previous AP Spine(L1-L4) 11/22/2019 59 1.447 3.6 0.214(17.4%)* 0.214(17.4%)* 12/29/2012 52 1.233 1.7 *Denotes significance at 95% confidence level, LSC for AP Spine = 0.022 g/cm2 Clinical Information Provided by Patient: Have had a previous hip or vertebral fracture Has had a low trauma fracture Has used the following medications: Vitamin D, Calcium Has the following medical conditions: Asthma or Emphysema, Hysterectomy Patient maximum height was 62.5 Menopause Age: 44 No regular weight bearing exercise Does not regularly consume dairy products Drinks caffeinated beverages Onset of menses at age 12 Number of children 2 Impression: The patient has normal bone mass. The patient has risk factors, including: previous fracture. No significant bone loss was observed. Discussion: INCREASED RISK OF FRACTURE DUE TO HISTORY OF FRACTURE. The patient's previous fracture puts the patient at high risk of a future fracture. In untreated patients, the risk of osteoporotic fracture increases approximately two-fold for each 1.0 SD decrease in T-score. Low bone density is not the only risk factor for fracture; also consider factors such as patient's age, frailty or poor health, risk of falling, risk of injury, previous osteoporotic fracture, family history of osteoporosis, cigarette smoking, low body weight, etc. Not everyone with a low trauma fracture has osteoporosis; osteomalacia and other metabolic bone disorders should also be considered. Patients who have osteoporosis should be evaluated for specific diseases and conditions (secondary causes) that may cause or contribute to bone loss and fracture risk. National Osteoporosis Foundation (NOF) recommends pharmacologic intervention for patients with a prior hip or vertebral fracture regardless of BMD T-score. The patient should follow a healthful lifestyle (good nutrition with adequate calcium and vitamin D, and appropriate weight-bearing exercise). Follow-Up: Consider a repeat BMD and Vertebral Fracture
== END 2019-11-22 13:58 | disposition home or self-care (01) ==
LOC: ANHIMG 14:02
PROVIDERS: PCP Internal Medicine; Visit Provider Nurse Practitioner
DX: Z12.31 Encounter for screening mammogram for malignant neoplasm of breast (principal); Z78.0 Asymptomatic menopausal state; R92.8 Other abnormal and inconclusive findings on diagnostic imaging of breast
CPT/HCPCS: 77063; 77067; 77080

== ENCOUNTER 2020-03-06 13:12 | Outpatient (CLI) | payer MEDICARE, OTHER, SELFPAY ==
--- NOTE | ~2020-03-06 | MMUS_ITS ---
EXAMINATION: MM diagnostic mammo unilat LT, US breast LT limited HISTORY: Left breast asymmetry follow-up TECHNIQUE: Additional 3-D tomosynthesis images of the left breast were performed and synthetic 2-D im ages were generated. CAD analysis was submitted and interpreted. High resolution Limited left breast ultrasound was performed. COMPARISON: Comparison to multiple prior studies sequentially, with oldest reviewed study dated 10/27. BREAST PARENCHYMAL COMPOSITION: Breast composed of scattered areas of fibroglandular density. FINDINGS: MAMMOGRAPHIC FINDINGS: There are no suspicious masses, calcifications or architectural distortion in the left breast. ULTRASOUND: Left breast ultrasound: Normal heterogeneous echotexture without focal solid or cystic mass. IMPRESSION: 1. No evidence for malignancy in the left breast. 2. Routine yearly screening mammogram and regular clinical breast examination are recommended. BI-RADS Category 1: Negative Reviewed, dictated and finalized at location A. HER EXAMINER IMPRESSION: 1. No evidence for malignancy in the left breast. 2. Routine yearly screening mammogram and regular clinical breast examination a re recommended. BI-RADS Category 1: Negative
[2020-03-06 13:22] LABS: Basophils Percent Auto 0.7 % (0.2-1.2); Eosinophils Absolute Auto 0.4 K/mm3 (0-0.3); Eosinophils Percent Auto 8.5 % (0-4.4); Hematocrit 37.2 % (37.0-47.0); Hemoglobin 11.9 g/dL (12.0-15.0); Immature Granulocyte Absolute 0.01 K/mm3 (0.00-0.031); Immature Granulocyte Percent A 0.2 % (0-0.5); Lymphocytes Absolute Auto 1.03 K/mm3 (0.9-3.2); Lymphocytes Percent Auto 24.9 % (18.3-44.2); Mean Corpuscular Hemoglobin 27.8 pg (26-34); Mean Corpuscular Volume 86.9 fl (80-100); Mean Platelet Volume 9.7 fl (7.4-10.4); Monocytes Absolute Auto 0.5 K/mm3 (0.1-0.6); Monocytes Percent Auto 11.4 % (2.6-8.5); Neutrophils Absolute Auto 2.3 K/mm3 (1.3-6.7); Neutrophils Percent Auto 54.3 % (45.5-73.1); Platelet Count Result 182 k/mm3 (150-375); Red Blood Count 4.28 M/mm3 (4.2-5.4); Red Cell Distribution Width 14.4 % (11.5-14.5); White Blood Count 4.1 K/mm3 (4.5-10.0)
[2020-03-06 13:40] LABS: Alanine Aminotransferase 14 U/L (4-35); Albumin Level 3.9 g/dL (3.5-5.1); Alkaline Phosphatase 154 U/L (38-126); Anion Gap 3 mmol/L (8-16); Aspartate Amino Transferase 31 U/L (14-36); Bilirubin,Total 0.4 mg/dL (0.2-1.3); Blood Urea Nitrogen 18 mg/dL (7-17); Carbon Dioxide 31 mmol/L (22-30); Chloride 97 mmol/L (98-107); Cholesterol 191 mg/dL (0-200); Estimated Glomerular Filt Rate 46; Glucose 105 mg/dL (65-105); HDL Direct 63 mg/dL; Potassium 5.1 mmol/L (3.4-5.0); Sodium 131 mmol/L (137-145); Triglycerides 94 mg/dL (<150)
[2020-03-06 13:46] LABS: Iron 83 ug/dL (37-170)
[2020-03-06 13:51] LABS: LDL Cholesterol Direct 98 mg/dL
[2020-03-06 13:55] LABS: Percent Iron Saturation 23 % (20-50)
[2020-03-06 14:10] LABS: Thyroid Stimulating Hormone 0.067 uIU/mL (0.465-4.680)
== END 2020-03-06 13:13 | disposition home or self-care (01) ==
PROVIDERS: PCP Internal Medicine; Visit Provider Nurse Practitioner
DX: R92.8 Other abnormal and inconclusive findings on diagnostic imaging of breast (principal); E78.2 Mixed hyperlipidemia; F41.8 Other specified anxiety disorders; N18.1 Chronic kidney disease, stage 1; E55.9 Vitamin D deficiency, unspecified; D50.9 Iron deficiency anemia, unspecified; E11.22 Type 2 diabetes mellitus with diabetic chronic kidney disease
CPT/HCPCS: 36415; 76642; 77065; 80053; 80061; 82306; 83036; 83540; 83550; 84443; 85025

== ENCOUNTER 2020-06-30 12:02 | Outpatient (CLI) | payer MEDICARE, OTHER, SELFPAY ==
[2020-06-30 12:52] LABS: Hemoglobin A1C 4.9 % (<5.7)
[2020-06-30 12:53] LABS: Alanine Aminotransferase 9 U/L (4-35); Albumin Level 3.8 g/dL (3.5-5.1); Alkaline Phosphatase 272 U/L (38-126); Anion Gap 4 mmol/L (8-16); Aspartate Amino Transferase 23 U/L (14-36); Bilirubin,Total 0.3 mg/dL (0.2-1.3); Blood Urea Nitrogen 16 mg/dL (7-17); Calcium 9.2 mg/dL (8.4-10.2); Carbon Dioxide 28 mmol/L (22-30); Chloride 100 mmol/L (98-107); Estimated Glomerular Filt Rate 51; Glucose 83 mg/dL (65-105); Potassium 4.9 mmol/L (3.4-5.0); Sodium 132 mmol/L (137-145)
[2020-06-30 13:23] LABS: Thyroid Stimulating Hormone 0.051 uIU/mL (0.465-4.680)
[2020-06-30 14:03] LABS: Free T4 Free Thyroxine 1.36 ng/mL (0.78-2.19)
== END 2020-06-30 12:03 | disposition home or self-care (01) ==
PROVIDERS: PCP Internal Medicine; Visit Provider Internal Medicine
DX: N18.1 Chronic kidney disease, stage 1 (principal); E11.22 Type 2 diabetes mellitus with diabetic chronic kidney disease; R79.89 Other specified abnormal findings of blood chemistry
CPT/HCPCS: 36415; 80053; 83036; 84439; 84443

== ENCOUNTER 2020-07-21 12:47 | Emergency (ER) | payer MEDICARE, OTHER, SELFPAY ==
--- NOTE | ~2020-07-21 | XR_ITS ---
EXAMINATION: XR knee LT 3V, XR tibia fibula LT 2V EXAM DATE: 07/21/2020 13:08 INDICATION: Deformity , knee hardware. Deformity. TECHNIQUE: Left knee frontal, crosstable lateral, oblique projections for interpretation. Left tibi a/fibula frontal and lateral projections obtained and reviewed. There are no prior studies for dee dee sanabria. FINDINGS: There is left knee replacement hardware. There is also a fibular metadiaphyseal plate and i ntramedullary arpita bridging a healed mid femoral fracture. No hardware fracture. Acute closed posttraumatic transverse fracture through the left tibial and fibular distal metaphyses, tibial fracture line extending through portion of bone which is bridged by tibial stem to the arthro plasty hardware. This is essentially nondisplaced. Some overlying soft tissue swelling. Bones are os teopenic. IMPRESSION: 1. Left tibial, fibular proximal metaphyseal osseous fractures. 2. Osteopenia. Reviewed, dictated and finalized at location A. IMPRESSION: 1. Left tibial, fibular proximal metaphyseal osseous fractures. 2. Osteopenia.
--- NOTE | ~2020-07-21 | XR_ITS ---
EXAMINATION: XR ankle LT 2V EXAM DATE: 07/21/2020 13:08 INDICATION: Proximal tibia and fibular fracture, left knee replacement. TECHNIQUE: Frontal and lateral projections of the left ankle. There is no prior study for compariso n. FINDINGS: Bones are osteopenic. There are vascular calcifications. No ankle fracture suspected. Smal l calcaneal spurs. IMPRESSION: Osteopenia. No evidence of left ankle fracture. Reviewed, dictated and finalized at location A.
[2020-07-21 12:48] VITALS: BP 151/100; PULSE 87; RESP 18; TEMP 36.5; O2SAT 97
--- NOTE | 2020-07-21 12:52 | ED.LOWEXIN ---
HPI - Extremity Injury (Lower) General Chief Complaint: Extremity Injury, Lower Stated Complaint: trauma/left leg deformity Time Seen by Provider: 07/21/20 12:49 History of Present Illness HPI Narrative: 60 yo female presents to the ED for a left leg injury. She was in the shower when her foot slipped and she twisted her left leg. She was able to hold onto her grab bar and did not actually fall. She has severe pain in the left lower leg with a deformity below the knee. She has had a previus knee replacement followed by periprosthetic femur fracture w/ internal fixation. Related Data Home Medications Medication Instructions Recorded Confirmed Biotin Plus Keratin 1 tablet PO DAILY 03/29/19 03/22/20 Stool Softener 50 mg PO BID 03/29/19 03/22/20 aspirin [Aspir-81] 81 mg PO DAILY 03/29/19 03/22/20 cholecalciferol (vitamin D3) 5,000 unit PO DAILY 03/29/19 03/22/20 cranberry 400 mg PO DAILY 03/29/19 03/22/20 sumatriptan succinate 50 mg tablet 50 mg PO DAILY PRN tablet 09/09/19 03/22/20 oxycodone-acetaminophen 5 mg-325 1 tablet PO Q4-6H PRN tablet 11/24/19 03/22/20 mg tablet carvedilol 25 mg tablet 25 mg PO Q12H 03/09/20 03/22/20 Allergies Allergy/AdvReac Type Severity Reaction Status Date / Time gabapentin Allergy Severe Dizziness Verified 07/21/20 12:53 adhesive tape AdvReac Rash Verified 07/21/20 12:53 Review of Systems Review of Systems: All systems reviewed & are unremarkable except as noted in HPI and below PMFSH Past Medical History Medical History Anxiety and depression Arthritis Attention deficit disorder Bleeding gums Chronic low back pain Diabetes Essential (primary) hypertension GERD (gastroesophageal reflux disease) Hematoma of left knee region History of frequent headaches Hx of fracture of hip AB Hypercholesteremia Iron deficiency anemia Mixed hyperlipidemia Open knee wound Postmenopausal Restless legs syndrome Screening for breast cancer Stress fracture Type 2 diabetes mellitus with stage 1 chronic kidney disease Ulna fracture Vision loss Weight gain Surgical History Surgical History History of bilateral knee replacement History of gastric bypass History of total hip replacement AB Family History Family History Sibling Malignant neoplasm of prostate Acute myocardial infarction Mother Family history of malignant neoplasm of brain Family history of heart disease in male family member before age 55 Other Diabetes mellitus Family history of allergic disorder Family history of malignant neoplasm Hypertension Social History Social History Smoking status: Never smoker Alcohol intake: never Substance use: never Substance use type: does not use Gender identity (if verbalized by the patient): Female Spiritual care concerns: No Exam Const: General: no acute distress and alert Nutritional Appearance: obese Orientation/consciousness: patient oriented x3 HENMT: Head: normal to inspection Neck: Neck: normal visual inspection Resp: Effort & Inspection: normal respiratory effort Auscultation: clear to auscultation bilaterally Cardio: Rate: regular rate Rhythm: regular rhythm Skin: General skin exam: normal color Neuro: General: patient oriented x3, moves all extremities, no focal motor deficits and CN's II-XI intact bilaterally Speech: normal speech Extrem: Other: 2+ left DP Obvious deformity inferomedially to the left knee Course Vital Signs Vital signs: Vital Signs Temperature 36.5 C 07/21/20 12:48 Pulse Rate 87 07/21/20 12:48 Respiratory Rate 18 07/21/20 12:48 Blood Pressure 151/100 H 07/21/20 12:48 Pulse Oximetry 97 07/21/20 12:48 Temperature 36.5 C 07/21/20 12:48 Pulse Rate 78 07/10
[2020-07-21] MEDS: MORPHINE SULFATE (*CRX) 2 MG/ML INJ IV PUSH (14:47)
[2020-07-21 15:04] VITALS: BP 122/78; PULSE 78; RESP 18; O2SAT 99
== END 2020-07-21 15:08 | disposition home or self-care (01) ==
PROVIDERS: Emergency Provider Emergency Medicine; PCP Internal Medicine
DX: S89.292A Other physeal fracture of upper end of left fibula, initial encounter for closed fracture (principal); S89.092A Other physeal fracture of upper end of left tibia, initial encounter for closed fracture; E11.22 Type 2 diabetes mellitus with diabetic chronic kidney disease; I12.9 Hypertensive chronic kidney disease with stage 1 through stage 4 chronic kidney disease, or unspecified chronic kidney disease; N18.1 Chronic kidney disease, stage 1; E78.2 Mixed hyperlipidemia; G25.81 Restless legs syndrome; K21.9 Gastro-esophageal reflux disease without esophagitis; M19.90 Unspecified osteoarthritis, unspecified site; F98.8 Other specified behavioral and emotional disorders with onset usually occurring in childhood and adolescence; F41.9 Anxiety disorder, unspecified; F32.9 Major depressive disorder, single episode, unspecified; Z79.82 Long term (current) use of aspirin; M85.872 Other specified disorders of bone density and structure, left ankle and foot; M85.862 Other specified disorders of bone density and structure, left lower leg; Z96.653 Presence of artificial knee joint, bilateral; Z96.643 Presence of artificial hip joint, bilateral; Z98.84 Bariatric surgery status; W18.49XA Other slipping, tripping and stumbling without falling, initial encounter
CPT/HCPCS: 73562; 73590; 73600; 96374; 99284; J2270

== ENCOUNTER 2020-09-26 16:02 | Outpatient (CLI) | payer MEDICARE, OTHER, SELFPAY ==
[2020-09-26 16:51] LABS: Basophils Percent Auto 0.8 % (0.2-1.2); Eosinophils Absolute Auto 0.4 K/mm3 (0-0.3); Eosinophils Percent Auto 6.9 % (0-4.4); Hematocrit 36.8 % (37.0-47.0); Hemoglobin 11.6 g/dL (12.0-15.0); Immature Granulocyte Absolute 0.02 K/mm3 (0.00-0.031); Immature Granulocyte Percent A 0.4 % (0-0.5); Mean Corpuscular HGB Conc 31.5 g/dl (32-36); Mean Corpuscular Hemoglobin 29.3 pg (26-34); Mean Corpuscular Volume 92.9 fl (80-100); Mean Platelet Volume 9.7 fl (7.4-10.4); Monocytes Absolute Auto 0.5 K/mm3 (0.1-0.6); Monocytes Percent Auto 10.1 % (2.6-8.5); Neutrophils Absolute Auto 3.6 K/mm3 (1.3-6.7); Neutrophils Percent Auto 66.8 % (45.5-73.1); Platelet Count Result 215 k/mm3 (150-375); Red Blood Count 3.96 M/mm3 (4.2-5.4); Red Cell Distribution Width 13.7 % (11.5-14.5); White Blood Count 5.3 K/mm3 (4.5-10.0)
[2020-09-26 17:25] LABS: Iron 88 ug/dL (37-170)
[2020-09-26 17:35] LABS: Percent Iron Saturation 34 % (20-50)
[2020-09-27 11:01] LABS: Ferritin 112 ng/mL (8-252)
== END 2020-09-26 16:03 | disposition home or self-care (01) ==
PROVIDERS: PCP Internal Medicine; Visit Provider Internal Medicine Medical Oncology
DX: D50.8 Other iron deficiency anemias (principal)
CPT/HCPCS: 36415; 82728; 83540; 83550; 85025

== ENCOUNTER 2020-11-01 14:33 | Outpatient (CLI) | payer MEDICARE, OTHER, SELFPAY ==
[2020-11-05 11:07] LABS: Mitochondrial (M2) Ab (IgG) <=20.0 U (<=20.0)
== END 2020-11-01 14:34 | disposition home or self-care (01) ==
PROVIDERS: PCP Internal Medicine; Visit Provider Internal Medicine
DX: R74.8 Abnormal levels of other serum enzymes (principal)
CPT/HCPCS: 36415; 83520

== ENCOUNTER 2020-11-30 14:11 | Outpatient (CLI) | payer MEDICARE, OTHER, SELFPAY ==
[2020-11-30 14:58] LABS: Alanine Aminotransferase 10 U/L (4-35); Albumin Level 3.9 g/dL (3.5-5.1); Alkaline Phosphatase 157 U/L (38-126); Anion Gap 8 mmol/L (8-16); Aspartate Amino Transferase 20 U/L (14-36); Bilirubin,Total 0.4 mg/dL (0.2-1.3); Blood Urea Nitrogen 14 mg/dL (7-17); Calcium 8.8 mg/dL (8.4-10.2); Carbon Dioxide 25 mmol/L (22-30); Chloride 104 mmol/L (98-107); Cholesterol 180 mg/dL (0-200); Estimated Glomerular Filt Rate 57; Glucose 86 mg/dL (65-110); HDL Direct 73 mg/dL; Potassium 4.9 mmol/L (3.4-5.0); Sodium 137 mmol/L (137-145); Triglycerides 73 mg/dL (<150)
[2020-11-30 15:08] LABS: Hemoglobin A1C 5.1 % (<5.7)
[2020-11-30 15:09] LABS: LDL Cholesterol Direct 85 mg/dL
== END 2020-11-30 14:12 | disposition home or self-care (01) ==
PROVIDERS: PCP Internal Medicine; Visit Provider Internal Medicine
DX: E78.5 Hyperlipidemia, unspecified (principal); E11.22 Type 2 diabetes mellitus with diabetic chronic kidney disease; R79.89 Other specified abnormal findings of blood chemistry; Z98.890 Other specified postprocedural states; Z79.899 Other long term (current) drug therapy; N18.1 Chronic kidney disease, stage 1; I12.9 Hypertensive chronic kidney disease with stage 1 through stage 4 chronic kidney disease, or unspecified chronic kidney disease
CPT/HCPCS: 36415; 80053; 80061; 82607; 83036; 84443

== ENCOUNTER 2020-12-13 12:06 | Outpatient (CLI) | payer MEDICARE, OTHER, SELFPAY ==
--- NOTE | ~2020-12-13 | NM_ITS ---
EXAMINATION: NM thyroid scan w uptake DATE: 12/14/2020 14:45 INDICATION: Thyrotoxicosis COMPARISON: None. TECHNIQUE: 369 microcuries I-123 was administered orally in capsule form. Scintigraphic images of th e thyroid gland were obtained at 24 hours. Thyroid uptake was calculated by the technologist. FINDINGS: The thyroid uptake is 9.6% (normal 10-30%), with the right lobe measuring 5.6% uptake and the left 4. 2%. There is no focal area of decreased or increased activity to suggest hypofunctioning or hyperfunc tioning nodule. IMPRESSION: 1. Normal thyroid scintigraphy with mildly decreased 24-hour iodine uptake. In the setting of thyrot oxicosis as could represent sequela of subacute thyroiditis, either induced hyperthyroidism or thyrot oxicosis of extrathyroidal origin. Reviewed, dictated and finalized at location A. IMPRESSION: 1. Normal thyroid scintigraphy with mildly decreased 24-hour iodine uptake. In the setting of thyrotoxicosis as could represent sequela of subacute thyroidit is, either induced hyperthyroidism or thyrotoxicosis of extrathyroidal origin.
== END 2020-12-13 12:07 | disposition home or self-care (01) ==
LOC: ANHIMG 12:07
PROVIDERS: PCP Internal Medicine; Visit Provider Internal Medicine
DX: E05.90 Thyrotoxicosis, unspecified without thyrotoxic crisis or storm (principal)
CPT/HCPCS: 78014; A9516

== ENCOUNTER 2020-12-17 12:19 | Outpatient (CLI) | payer MEDICARE, OTHER, SELFPAY ==
[2020-12-17 17:11] LABS: Total Triiodothyronine (T3) 1.32 NG/ML (0.97-1.69)
== END 2020-12-17 12:20 | disposition home or self-care (01) ==
LOC: ANHLAB 12:26
PROVIDERS: PCP Internal Medicine; Visit Provider Internal Medicine
DX: E05.90 Thyrotoxicosis, unspecified without thyrotoxic crisis or storm (principal)
CPT/HCPCS: 36415; 84439; 84480

== ENCOUNTER → 2021-02-28 02:04 | Outpatient (CLI) | payer MEDICARE, OTHER, SELFPAY ==
[2021-02-28 21:12] LABS: SARS-CoV-2 RNA PCR Positive
== END ==
PROVIDERS: PCP Internal Medicine; Visit Provider Internal Medicine
DX: U07.1 COVID-19 (principal)
CPT/HCPCS: C9803; U0003; U0005

== ENCOUNTER 2021-04-01 08:17 | Outpatient (CLI) | payer MEDICARE, OTHER, SELFPAY ==
[2021-04-01 09:22] LABS: Basophils Percent Auto 0.6 % (0.2-1.2); Eosinophils Absolute Auto 0.5 K/mm3 (0-0.3); Eosinophils Percent Auto 7.6 % (0-4.4); Hematocrit 35.8 % (37.0-47.0); Hemoglobin 11.2 g/dL (12.0-15.0); Immature Granulocyte Absolute 0.02 K/mm3 (0.00-0.031); Immature Granulocyte Percent A 0.3 % (0-0.5); Lymphocytes Absolute Auto 0.77 K/mm3 (0.9-3.2); Lymphocytes Percent Auto 11.7 % (18.3-44.2); Mean Corpuscular HGB Conc 31.3 g/dl (32-36); Mean Corpuscular Hemoglobin 29.6 pg (26-34); Mean Corpuscular Volume 94.7 fl (80-100); Monocytes Absolute Auto 0.7 K/mm3 (0.1-0.6); Monocytes Percent Auto 10.8 % (2.6-8.5); Neutrophils Absolute Auto 4.5 K/mm3 (1.3-6.7); Platelet Count Result 195 k/mm3 (150-375); Red Blood Count 3.78 M/mm3 (4.2-5.4); Red Cell Distribution Width 14.1 % (11.5-14.5); White Blood Count 6.6 K/mm3 (4.5-10.0)
[2021-04-01 09:23] LABS: Hematocrit 36.3 % (37.0-47.0); Hemoglobin 11.3 g/dL (12.0-15.0)
[2021-04-01 09:44] LABS: Alanine Aminotransferase 11 U/L (4-35); Albumin Level 3.8 g/dL (3.5-5.1); Alkaline Phosphatase 145 U/L (38-126); Anion Gap 7 mmol/L (8-16); Aspartate Amino Transferase 23 U/L (14-36); Bilirubin,Total 0.3 mg/dL (0.2-1.3); Blood Urea Nitrogen 16 mg/dL (7-17); Calcium 9.5 mg/dL (8.4-10.2); Carbon Dioxide 24 mmol/L (22-30); Chloride 107 mmol/L (98-107); Cholesterol 164 mg/dL (0-200); Estimated Glomerular Filt Rate 46; Glucose 83 mg/dL (65-110); HDL Direct 55 mg/dL; Potassium 5.3 mmol/L (3.4-5.0); Sodium 138 mmol/L (137-145); Triglycerides 61 mg/dL (<150)
[2021-04-01 09:56] LABS: LDL Cholesterol Direct 74 mg/dL
[2021-04-01 10:01] LABS: Iron 78 ug/dL (37-170)
[2021-04-01 10:10] LABS: Percent Iron Saturation 27 % (20-50)
[2021-04-01 10:48] LABS: Hemoglobin A1C 5.1 % (<5.7)
== END 2021-04-01 08:18 | disposition home or self-care (01) ==
PROVIDERS: PCP Internal Medicine; Referring Provider Internal Medicine Medical Oncology; Visit Provider Internal Medicine
DX: D50.8 Other iron deficiency anemias (principal)
CPT/HCPCS: 36415; 80053; 80061; 82728; 83036; 83540; 83550; 84443; 85014; 85018; 85025

== ENCOUNTER 2021-06-16 07:05 | Emergency (ER) | payer MEDICARE, OTHER, SELFPAY ==
--- NOTE | ~2021-06-16 | XR_ITS ---
EXAMINATION: XR ribs LT 2V w CXR 2V INDICATION: Left rib pain TECHNIQUE: AP and lateral views of the chest and 3 views of the left ribs were obtained. COMPARISON: 02/23/2019 FINDINGS: There is mild atelectasis of the lower lobes. No pleural effusion or pneumothorax is identi fied. The cardiomediastinal silhouette is normal. There are acute minimally displaced fractures of th e left seventh and eighth ribs. There is chronic fracture of the proximal left humerus with nonunion. At peak hardware is noted in the left elbow. IMPRESSION: 1. Minimally displaced fractures of the left seventh and eighth ribs. 2. 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 Reviewed, dictated and finalized at location A.
[2021-06-16 07:04] VITALS: BP 160/80; PULSE 81; RESP 13; TEMP 36.9; O2SAT 97
[2021-06-16 07:32] VITALS: BP 136/65; PULSE 71; RESP 16; O2SAT 100
--- NOTE | 2021-06-16 07:47 | PC.NURSE ---
pt to xray via stretcher
--- NOTE | 2021-06-16 07:56 | ED.FALL ---
HPI - Fall General Chief Complaint: Fall Stated Complaint: fall, L side pain Time Seen by Provider: 06/16/21 07:10 History of Present Illness HPI Narrative: Patient is a 61-year-old female who presents ER with left-sided chest pain after fall. Reports she was at home and she tripped over a box landing on her left chest. She did not strike her head or lose consciousness. Patient has difficulty attempting to stop a fall due to a previous left upper extremity fracture 1 year ago that left her with some deformity. She received fentanyl by EMS. Pain is worse with twisting and deep breath. No dyspnea. No cough. Related Data Home Medications Medication Instructions Recorded Confirmed Biotin Plus Keratin 1 tablet PO DAILY 03/29/19 05/07/21 Stool Softener 50 mg PO BID 03/29/19 05/07/21 aspirin [Aspir-81] 81 mg PO DAILY 03/29/19 05/07/21 cholecalciferol (vitamin D3) 5,000 unit PO DAILY 03/29/19 05/07/21 cranberry 400 mg PO DAILY 03/29/19 01/21/21 carvedilol 25 mg tablet 25 mg PO Q12H 03/09/20 05/07/21 oxycodone-acetaminophen 5 mg-325 1 tablet PO Q8H PRN tablet 07/27/20 05/07/21 mg tablet Allergies Allergy/AdvReac Type Severity Reaction Status Date / Time gabapentin Allergy Severe Dizziness Verified 05/07/21 14:17 adhesive tape AdvReac Rash Verified 05/07/21 14:17 Review of Systems Review of Systems: All systems reviewed & are unremarkable except as noted in HPI and below Constitutional: Constitutional: Denies chills and Denies fever(s) Cardiovascular: Cardiovascular: Reports chest pain (Chest wall), Denies rapid heart rate and Denies radiating jaw, neck or arm pain Respiratory: Respiratory: Denies cough, Denies dyspnea and Denies wheezing Musculoskeletal: Musculoskeletal: Denies arthralgias and Denies joint swelling Neurologic: Denies syncope, Denies focal weakness and Denies numbness [facility] Past Medical History Medical History (Updated 06/16/21 @ 09:01 by Sebastián Hernandez MD) Anemia Anxiety and depression Arthritis Attention deficit disorder Bleeding gums Chronic headache Chronic low back pain COVID-19 Diabetes Essential (primary) hypertension GERD (gastroesophageal reflux disease) Hematoma of left knee region History of frequent headaches Hx of fracture of hip AB Hypercholesteremia Iron deficiency anemia Mixed hyperlipidemia Open knee wound Osteoporosis Postmenopausal Restless legs syndrome Screening for breast cancer Stress fracture Type 2 diabetes mellitus with stage 1 chronic kidney disease Ulna fracture Vision loss Weight gain Surgical History Surgical History History of bilateral knee replacement History of elbow surgery History of gastric bypass History of open reduction and internal fixation (ORIF) procedure L Femur History of total hip replacement AB Family History Family History Sibling Malignant neoplasm of prostate Acute myocardial infarction Mother Family history of malignant neoplasm of brain Family history of heart disease in male family member before age 55 Other Diabetes mellitus Family history of allergic disorder Family history of malignant neoplasm Hypertension Social History Social History Second hand tobacco smoke exposure: No Alcohol intake: never Substance use: never Substance use type: does not use Gender identity (if verbalized by the patient): Female Spiritual care concerns: No Exam Narrative: GENERAL: Well-appearing, well-nourished, and in no acute distress. HEAD: Normocephalic, atraumatic. CHEST: Clear to auscultation. No respiratory distress. Tenderness palpation left anterior chest wall just inferior to the breast lateral to the midclavicular line. HEART: Regular rate and rhythm. Normal peripheral pulses. EXTREMITIES: Normal range of motion. No edema. SKIN:
[2021-06-16 08:29] VITALS: BP 157/67; PULSE 57; RESP 18; O2SAT 98
[2021-06-16 09:32] VITALS: BP 142/88; PULSE 77; RESP 18; O2SAT 98
== END 2021-06-16 09:33 | disposition home or self-care (01) ==
PROVIDERS: Emergency Provider Emergency Medicine; PCP Internal Medicine
DX: S22.42XA Multiple fractures of ribs, left side, initial encounter for closed fracture (principal); E11.22 Type 2 diabetes mellitus with diabetic chronic kidney disease; I12.9 Hypertensive chronic kidney disease with stage 1 through stage 4 chronic kidney disease, or unspecified chronic kidney disease; N18.1 Chronic kidney disease, stage 1; K21.9 Gastro-esophageal reflux disease without esophagitis; E78.2 Mixed hyperlipidemia; D50.9 Iron deficiency anemia, unspecified; M81.0 Age-related osteoporosis without current pathological fracture; G25.81 Restless legs syndrome; F41.9 Anxiety disorder, unspecified; F32.A Depression, unspecified; Z86.16 Personal history of COVID-19; Z79.4 Long term (current) use of insulin; Z79.82 Long term (current) use of aspirin; Z96.653 Presence of artificial knee joint, bilateral; Z96.643 Presence of artificial hip joint, bilateral; Z98.84 Bariatric surgery status; W18.09XA Striking against other object with subsequent fall, initial encounter
CPT/HCPCS: 71046; 71100; 99283

== ENCOUNTER 2021-07-11 09:45 | Outpatient (CLI) | payer MEDICARE, OTHER, SELFPAY ==
[2021-07-11 10:40] LABS: Appearance Urine Clear (Clear); Bilirubin Urine Negative (Negative); Blood Urine Negative (Negative); Color Urine Yellow (Yellow); Glucose Urine UA Negative (Negative); Ketones Urine Negative (Negative); Leukocyte Esterase Ur 2+ LEU/UL (NEGATIVE); Nitrate Urine Negative (Negative); Protein Urine Negative (Negative); Urobilinogen Urine 0.2 mg/dL (<2.0)
[2021-07-11 10:43] LABS: Hematocrit 35.5 % (37.0-47.0); Hemoglobin 11.1 g/dL (12.0-15.0); Mean Corpuscular HGB Conc 31.3 g/dl (32-36); Mean Corpuscular Hemoglobin 29.7 pg (26-34); Mean Corpuscular Volume 94.9 fl (80-100); Mean Platelet Volume 9.9 fl (7.4-10.4); Platelet Count Result 187 k/mm3 (150-375); Red Blood Count 3.74 M/mm3 (4.2-5.4); Red Cell Distribution Width 13.1 % (11.5-14.5); White Blood Count 5.6 K/mm3 (4.5-10.0)
[2021-07-11 10:44] LABS: Mucus Urine Rare /lpf; RBC Urine 0-2 /hpf (0-2); Renal Epithelial Cells Urine Rare /hpf (None Seen); WBC Urine 21-30 /hpf (0-3)
[2021-07-11 10:45] LABS: Add Urine Microscopic? YES
[2021-07-11 10:55] LABS: Alanine Aminotransferase 9 U/L (6-35); Albumin Level 3.8 g/dL (3.5-5.1); Alkaline Phosphatase 136 U/L (38-126); Anion Gap 5 mmol/L (8-16); Aspartate Amino Transferase 21 U/L (14-36); Bilirubin,Total 0.3 mg/dL (0.2-1.3); Blood Urea Nitrogen 24 mg/dL (7-17); Calcium 8.7 mg/dL (8.4-10.2); Carbon Dioxide 30 mmol/L (22-30); Chloride 100 mmol/L (98-107); Estimated Glomerular Filt Rate 46; Glucose 90 mg/dL (65-110); Potassium 4.8 mmol/L (3.4-5.0); Sodium 135 mmol/L (137-145)
== END 2021-07-11 09:46 | disposition home or self-care (01) ==
LOC: ANHLAB 09:49
PROVIDERS: PCP Internal Medicine
DX: Z01.812 Encounter for preprocedural laboratory examination (principal); Z51.81 Encounter for therapeutic drug level monitoring; Z79.899 Other long term (current) drug therapy
CPT/HCPCS: 36415; 80053; 81001; 85027

== ENCOUNTER → 2021-07-13 00:04 | Outpatient (CLI) | payer MEDICARE, SELFPAY ==
[2021-07-13 11:19] LABS: SARS-CoV-2 RNA PCR Negative
== END ==
DX: Z01.812 Encounter for preprocedural laboratory examination (principal); Z20.822 Contact with and (suspected) exposure to COVID-19
CPT/HCPCS: C9803; U0003; U0005

== ENCOUNTER 2021-08-06 21:58 | Emergency (ER) | payer MEDICARE, OTHER, SELFPAY ==
--- NOTE | ~2021-08-06 | XR_ITS ---
EXAM: XR humerus LT DATE: 08/06/2021 22:59 HISTORY: PT HAD SHOULDER REPLACED 07/17 AND FELL TODAY ON ARM . COMPARISON: None available. FINDINGS: Severely decreased mineralization. Left shoulder arthroplasty, appears to be grossly align ed with the glenoid. Extensive screw and plate fixation about the elbow joint. No hardware fracture. Oblique, minimally displaced and laterally angulated fracture of the mid left humeral shaft, exposing the bone cement interface. IMPRESSION: Oblique, displaced and angulated periprosthetic fracture of the left humeral midshaft, ex posing the bone cement interface of the left shoulder arthroplasty. Reviewed, dictated and finalized at location K. IMPRESSION: Oblique, displaced and angulated periprosthetic fracture of the lef t humeral midshaft, exposing the bone cement interface of the left shoulder art hroplasty.
[2021-08-06 22:36] VITALS: BP 141/78; PULSE 92; RESP 18; TEMP 36.4; O2SAT 98
--- NOTE | 2021-08-07 00:54 | ED.FALL ---
HPI - Fall General Chief Complaint: Fall <Soco Tolbert PA-C - Last Filed: 08/07/21 01:08> Stated Complaint: fall, left arm pain <MONA Jorge Last Filed: 08/07/21 01:08> Time Seen by Provider: 08/07/21 00:30 <Soco Tolbert PA-C - Last Filed: 08/07/21 01:08> Source: patient <MONA Jorge Last Filed: 08/07/21 01:08> Mode of arrival: ambulatory <MONA Jorge Last Filed: 08/07/21 01:08> Limitations: no limitations <MONA Jorge Last Filed: 08/07/21 01:08> History of Present Illness HPI Narrative: This is a 61 year old female that presents to the ER after a ground-level fall today with left upper arm pain. Reports she tripped and fell forward and caught herself with her left arm which is currently in a sling. She recently had partial left shoulder replacement at [facility] with Dr. Jerson Jones. She reports pain in the mid upper arm. She did not hit her head or lose consciousness. No prodromal symptoms. Denies numbness. <Soco Tolbert PA-C - Last Filed: 08/07/21 01:08> Related Data Home Medications: Home Medications Medication Instructions Recorded Confirmed aspirin 81 mg tablet,delayed 81 mg PO DAILY 03/29/19 05/07/21 release (Aspir-) biotin 10,000 mcg-keratin 100 mg 1 tablet PO DAILY 03/29/19 05/07/21 tablet (Biotin Plus Keratin) cholecalciferol (vitamin D3) 125 5,000 unit PO DAILY 03/29/19 05/07/21 mcg (5,000 unit) disintegrating tablet cranberry 400 mg capsule 400 mg PO DAILY 03/29/19 01/21/21 docusate sodium 50 mg capsule 50 mg PO BID 03/29/19 05/07/21 (Stool Softener) carvedilol 25 mg tablet 25 mg PO Q12H 03/09/20 05/07/21 oxycodone-acetaminophen 5 mg-325 1 tablet PO Q8H PRN pain 07/27/20 05/07/21 mg tablet <Soco Tolbert PA-C - Last Filed: 08/07/21 01:08> Allergies/Adverse Reactions: Allergies Allergy/AdvReac Type Severity Reaction Status Date / Time gabapentin Allergy Severe Dizziness Verified 07/09/21 12:07 adhesive tape AdvReac Rash Verified 07/09/21 12:07 <Soco Tolbert PA-C - Last Filed: 08/07/21 01:08> Review of Systems Review of Systems: CONSTITUTIONAL: Denies fever MUSCULOSKELETAL: Reports joint pain, and myalgia. NEUROLOGIC: Denies numbness, or weakness. <Soco Tolbert PA-C - Last Filed: 08/07/21 01:08> All systems reviewed & are unremarkable except as noted in HPI and below <Soco Tolbert PA-C - Last Filed: 08/07/21 01:08> [facility] Past Medical History Medical History: Medical History Anemia Anxiety and depression Arthritis Attention deficit disorder Bleeding gums Chronic headache Chronic low back pain COVID-19 Diabetes Essential (primary) hypertension GERD (gastroesophageal reflux disease) Hematoma of left knee region History of frequent headaches Hx of fracture of hip AB Hypercholesteremia Iron deficiency anemia Mixed hyperlipidemia Open knee wound Osteoporosis Postmenopausal Restless legs syndrome Screening for breast cancer Stress fracture Type 2 diabetes mellitus with stage 1 chronic kidney disease Ulna fracture Vision loss Weight gain <Soco Tolbert PA-C - Last Filed: 08/07/21 01:08> Surgical History Surgical History: Surgical History History of bilateral knee replacement History of elbow surgery History of gastric bypass History of open reduction and internal fixation (ORIF) procedure L Femur History of total hip replacement AB <Soco Tolbert PA-C - Last Filed: 08/07/21 01:08> Family History Family History: Family History Sibling Malignant neoplasm of prostate Acute myocardial infarction Mother Family history of malignant neoplasm of brain Family history of heart disease in male family member before age 55 Other Diabet
[2021-08-07] MEDS: oxyCODONE/ACETAMINOPHEN (*CRX) 5-325 MG TABLET 1 TABLET PO (01:17)
[2021-08-07] MEDS: KETOROLAC 30 MG/ML VIAL (*BKC) IM (01:17)
[2021-08-07 01:45] VITALS: BP 119/96; PULSE 85; RESP 16; O2SAT 98
== END 2021-08-07 01:47 | disposition home or self-care (01) ==
PROVIDERS: Emergency Provider Emergency Medicine
DX: S42.332A Displaced oblique fracture of shaft of humerus, left arm, initial encounter for closed fracture (principal); M97.32XA Periprosthetic fracture around internal prosthetic left shoulder joint, initial encounter; E11.22 Type 2 diabetes mellitus with diabetic chronic kidney disease; I12.9 Hypertensive chronic kidney disease with stage 1 through stage 4 chronic kidney disease, or unspecified chronic kidney disease; N18.1 Chronic kidney disease, stage 1; E78.2 Mixed hyperlipidemia; D50.9 Iron deficiency anemia, unspecified; M81.0 Age-related osteoporosis without current pathological fracture; K21.9 Gastro-esophageal reflux disease without esophagitis; M19.90 Unspecified osteoarthritis, unspecified site; Z86.16 Personal history of COVID-19; Z79.82 Long term (current) use of aspirin; Z79.84 Long term (current) use of oral hypoglycemic drugs; W01.0XXA Fall on same level from slipping, tripping and stumbling without subsequent striking against object, initial encounter
CPT/HCPCS: 73060; 96372; 99284; A9270; J1885

== ENCOUNTER 2021-08-30 09:41 | Outpatient (CLI) | payer MEDICARE, OTHER, SELFPAY ==
--- NOTE | ~2021-08-30 | XR_ITS ---
EXAMINATION: XR UGIAC w barium swallow DATE: 08/30/2021 10:24 INDICATION: Possible revision of Ramses-en-Y gastric bypass. Acid reflux. TECHNIQUE: The patient drank thick barium, gas-producing crystals, and thin barium. A total of 352 f luoroscopic images of the esophagus, stomach, and proximal small bowel were obtained. Fluoroscopy exp osure time was 1.3 minutes. COMPARISON: None. FINDINGS: The esophagus is normal without mass or stricture. Esophageal motility is normal. There is no hiatal hernia. Postoperative changes consistent with provided history of a Ramses-en-Y gastric bypas s. There is a small gastric remnant with contrast passing almost immediately through the gastric remn ant into the Ramses limb. (Normal mucosal fold pattern to the Ramses limb a couple episodes of spontaneou s spontaneous reflux of small amounts of contrast from the gastric remnant into the distalmost esopha juan were observed. IMPRESSION: 1. Expected appearance of a Ramses-en-Y gastric bypass with prompt passage of contrast from the distal esophagus through the small gastric remnant into the Ramses limb. 2. A couple episodes of spontaneous gastroesophageal reflux of small amounts of contrast into the dis talmost esophagus. Reviewed, dictated and finalized at location A. IMPRESSION: 1. Expected appearance of a Ramses-en-Y gastric bypass with prompt passage of con trast from the distal esophagus through the small gastric remnant into the Ramses limb. 2. A couple episodes of spontaneous gastroesophageal reflux of small amounts of contrast into the distalmost esophagus.
== END 2021-08-30 09:42 | disposition home or self-care (01) ==
PROVIDERS: PCP Internal Medicine; Visit Provider Internal Medicine
DX: Z01.818 Encounter for other preprocedural examination (principal)
CPT/HCPCS: 74246

== ENCOUNTER 2021-09-27 09:09 | Outpatient (CLI) | payer MEDICARE, OTHER, SELFPAY ==
[2021-09-27 10:05] LABS: Appearance Urine Slightly Cloudy (Clear); Bilirubin Urine Negative (Negative); Blood Urine Negative (Negative); Color Urine Yellow (Yellow); Glucose Urine UA Negative (Negative); Ketones Urine Negative (Negative); Leukocyte Esterase Ur 2+ LEU/UL (Negative); Nitrate Urine Negative (Negative); Protein Urine Negative (Negative); Specific Grav Ur 1.015 (1.001-1.035); Urobilinogen Urine 0.2 mg/dL (<2.0); pH Urine 5.5 (5.0-9.0)
[2021-09-27 10:19] LABS: Bacteria Urine 1+ /hpf; RBC Urine 0-2 /hpf (0-2); Squamous Epithelial Cell Urine Rare /hpf (Few); Transitional Epi Cells Urine Rare /hpf (None Seen); WBC Urine 16-20 /hpf
[2021-09-27 10:21] LABS: Add Urine Microscopic? YES
== END 2021-09-27 09:10 | disposition home or self-care (01) ==
PROVIDERS: PCP Internal Medicine; Visit Provider Internal Medicine
DX: R30.0 Dysuria (principal)
CPT/HCPCS: 81001; 87077; 87086; 87186

== ENCOUNTER 2021-10-08 13:15 | Outpatient (CLI) | payer MEDICARE, OTHER, SELFPAY ==
[2021-10-08 13:45] LABS: Basophils Absolute Auto 0.1 K/mm3 (0.0-0.1); Basophils Percent Auto 0.7 % (0.2-1.2); Eosinophils Absolute Auto 0.4 K/mm3 (0-0.3); Eosinophils Percent Auto 6.4 % (0-4.4); Hemoglobin 9.7 g/dL (12.0-15.0); Immature Granulocyte Absolute 0.01 K/mm3 (0.00-0.031); Immature Granulocyte Percent A 0.1 % (0-0.5); Lymphocytes Absolute Auto 1.29 K/mm3 (0.9-3.2); Lymphocytes Percent Auto 18.7 % (18.3-44.2); Mean Corpuscular HGB Conc 31.3 g/dl (32-36); Mean Corpuscular Hemoglobin 27.7 pg (26-34); Mean Corpuscular Volume 88.6 fl (80-100); Mean Platelet Volume 10.2 fl (7.4-10.4); Monocytes Absolute Auto 0.6 K/mm3 (0.1-0.6); Monocytes Percent Auto 8.7 % (2.6-8.5); Neutrophils Absolute Auto 4.5 K/mm3 (1.3-6.7); Neutrophils Percent Auto 65.4 % (45.5-73.1); Platelet Count Result 200 k/mm3 (150-375); White Blood Count 6.9 K/mm3 (4.5-10.0)
[2021-10-08 14:26] LABS: Iron 61 ug/dL (37-170)
[2021-10-08 14:37] LABS: Percent Iron Saturation 18 % (20-50)
== END 2021-10-08 13:16 | disposition home or self-care (01) ==
PROVIDERS: PCP Internal Medicine; Visit Provider Internal Medicine Medical Oncology
DX: D50.8 Other iron deficiency anemias (principal)
CPT/HCPCS: 36415; 82728; 83540; 83550; 85025

== ENCOUNTER 2021-10-10 09:44 | Outpatient (CLI) | payer MEDICARE, OTHER, SELFPAY ==
[2021-10-10 10:52] LABS: Appearance Urine Clear (Clear); Bilirubin Urine Negative (Negative); Blood Urine Negative (Negative); Color Urine Yellow (Yellow); Glucose Urine UA Negative (Negative); Ketones Urine Negative (Negative); Leukocyte Esterase Ur 2+ LEU/UL (Negative); Nitrate Urine Negative (Negative); Protein Urine Negative (Negative)
[2021-10-10 11:02] LABS: Mucus Urine Rare /lpf; RBC Urine 0-2 /hpf (0-2); Squamous Epithelial Cell Urine Rare /hpf (Few); WBC Urine 31-50 /hpf
[2021-10-10 11:16] LABS: Add Urine Microscopic? YES
== END 2021-10-10 09:45 | disposition home or self-care (01) ==
PROVIDERS: PCP Internal Medicine; Visit Provider Internal Medicine
DX: R30.0 Dysuria (principal)
CPT/HCPCS: 81001; 87077; 87086; 87186

== ENCOUNTER 2021-10-22 15:37 | Outpatient (CLI) | payer MEDICARE, OTHER, SELFPAY ==
--- NOTE | ~2021-10-22 | XR_ITS ---
EXAMINATION: XR abdomen/kub 1V DATE: 10/22/2021 16:23 INDICATION: Unspecified abdominal pain. TECHNIQUE: A supine view of the abdomen on 2 radiographs was obtained. COMPARISON: Chest CT 02/23/2019 FINDINGS: There are no dilated loops of bowel. There is a moderate volume of stool in the colon. Ther e are bilateral total hip arthroplasties. There is a staple line in the area of the stomach. There ar e old healed right rib fractures. IMPRESSION: 1. Normal bowel gas pattern. Reviewed, dictated and finalized at location A.
[2021-10-22 16:16] LABS: Appearance Urine Clear (Clear); Bilirubin Urine Negative (Negative); Blood Urine Negative (Negative); Color Urine Yellow (Yellow); Glucose Urine UA Negative (Negative); Ketones Urine Negative (Negative); Leukocyte Esterase Ur 1+ LEU/UL (Negative); Nitrate Urine Negative (Negative); Protein Urine Negative (Negative); Urobilinogen Urine 0.2 mg/dL (<2.0)
[2021-10-22 16:20] LABS: RBC Urine 0-2 /hpf (0-2); Squamous Epithelial Cell Urine Rare /hpf (Few)
[2021-10-22 16:29] LABS: Hemoglobin A1C 4.9 % (<5.7)
[2021-10-22 16:30] LABS: Alanine Aminotransferase 13 U/L (6-35); Albumin Level 3.9 g/dL (3.5-5.1); Alkaline Phosphatase 125 U/L (38-126); Anion Gap 10 mmol/L (8-16); Aspartate Amino Transferase 20 U/L (14-36); Bilirubin,Total 0.6 mg/dL (0.2-1.3); Blood Urea Nitrogen 31 mg/dL (7-17); Calcium 8.8 mg/dL (8.4-10.2); Carbon Dioxide 22 mmol/L (22-30); Chloride 97 mmol/L (98-107); Cholesterol 169 mg/dL (0-200); Estimated Glomerular Filt Rate 46; Glucose 95 mg/dL (65-110); HDL Direct 41 mg/dL; Potassium 4.6 mmol/L (3.4-5.0); Sodium 129 mmol/L (137-145); Triglycerides 119 mg/dL (<150)
[2021-10-22 16:36] LABS: Add Urine Microscopic? YES
[2021-10-22 16:43] LABS: LDL Cholesterol Direct 88 mg/dL
[2021-10-22 17:02] LABS: Thyroid Stimulating Hormone 0.064 uIU/mL (0.465-4.680)
== END 2021-10-22 15:38 | disposition home or self-care (01) ==
LOC: ANHLAB 15:46
PROVIDERS: Nurse Practitioner; PCP Internal Medicine; Referring Provider Internal Medicine; Visit Provider Internal Medicine
DX: R10.9 Unspecified abdominal pain (principal); R30.0 Dysuria; E78.5 Hyperlipidemia, unspecified; E11.9 Type 2 diabetes mellitus without complications; E05.90 Thyrotoxicosis, unspecified without thyrotoxic crisis or storm
CPT/HCPCS: 36415; 74018; 80053; 80061; 81001; 83036; 84443; 87086

== ENCOUNTER 2022-05-14 14:31 | Outpatient (CLI) | payer MEDICARE, OTHER, SELFPAY ==
[2022-05-14 15:37] LABS: Basophils Percent Auto 0.5 % (0.2-1.2); Eosinophils Absolute Auto 0.4 K/mm3 (0-0.3); Eosinophils Percent Auto 5.8 % (0-4.4); Hematocrit 37.5 % (37.0-47.0); Immature Granulocyte Absolute 0.01 K/mm3 (0.00-0.031); Immature Granulocyte Percent A 0.2 % (0-0.5); Lymphocytes Absolute Auto 1.18 K/mm3 (0.9-3.2); Lymphocytes Percent Auto 19.1 % (18.3-44.2); Mean Corpuscular Hemoglobin 30.3 pg (26-34); Mean Corpuscular Volume 94.7 fl (80-100); Mean Platelet Volume 9.8 fl (7.4-10.4); Monocytes Absolute Auto 0.7 K/mm3 (0.1-0.6); Monocytes Percent Auto 10.7 % (2.6-8.5); Neutrophils Absolute Auto 3.9 K/mm3 (1.3-6.7); Neutrophils Percent Auto 63.7 % (45.5-73.1); Platelet Count Result 181 k/mm3 (150-375); Red Blood Count 3.96 M/mm3 (4.2-5.4); Red Cell Distribution Width 12.5 % (11.5-14.5); White Blood Count 6.2 K/mm3 (4.5-10.0)
[2022-05-14 16:04] LABS: Iron 83 ug/dL (37-170)
[2022-05-14 16:18] LABS: Percent Iron Saturation 30 % (20-50)
== END 2022-05-14 14:32 | disposition home or self-care (01) ==
PROVIDERS: PCP Internal Medicine
DX: D50.8 Other iron deficiency anemias (principal)
CPT/HCPCS: 36415; 82728; 83540; 83550; 85025

== ENCOUNTER 2022-08-14 11:10 | Outpatient (CLI) | payer MEDICARE, OTHER, SELFPAY ==
[2022-08-14 12:02] LABS: Appearance Urine Clear (Clear); Bacteria Urine 4+ /hpf; Bilirubin Urine Negative (Negative); Blood Urine Negative (Negative); Color Urine Yellow (Yellow); Glucose Urine UA Negative (Negative); Ketones Urine Negative (Negative); Leukocyte Esterase Ur 2+ LEU/UL (NEGATIVE); Nitrate Urine Negative (Negative); Non Pathogenic Casts 0-2; Protein Urine Negative (Negative); RBC Urine 0-2 /hpf (0-2); Specific Grav Ur 1.006 (1.001-1.035); Squamous Epithelial Cell Urine None seen /hpf (Few)
[2022-08-14 12:09] LABS: Add Urine Microscopic? YES
[2022-08-14 12:11] LABS: Alanine Aminotransferase 17 U/L (6-35); Albumin Level 4.1 g/dL (3.5-5.1); Alkaline Phosphatase 112 U/L (38-126); Anion Gap 5 mmol/L (8-16); Aspartate Amino Transferase 24 U/L (14-36); Bilirubin,Total 0.4 mg/dL (0.2-1.3); Blood Urea Nitrogen 24 mg/dL (7-17); Calcium 8.8 mg/dL (8.4-10.2); Carbon Dioxide 28 mmol/L (22-30); Chloride 98 mmol/L (98-107); Cholesterol 169 mg/dL (0-200); Estimated Glomerular Filt Rate 56; Glucose 80 mg/dL (65-110); HDL Direct 52 mg/dL; Potassium 4.6 mmol/L (3.4-5.0); Sodium 131 mmol/L (137-145); Triglycerides 70 mg/dL (<150)
[2022-08-14 12:22] LABS: LDL Cholesterol Direct 78 mg/dL
[2022-08-14 12:26] LABS: Hemoglobin A1C 4.8 % (<5.7)
[2022-08-14 12:44] LABS: Free T4 Free Thyroxine 1.47 ng/mL (0.78-2.19)
== END 2022-08-14 11:11 | disposition home or self-care (01) ==
LOC: ANHLAB 11:13
PROVIDERS: PCP Family Medicine; Visit Provider Nurse Practitioner Family
DX: E78.5 Hyperlipidemia, unspecified (principal); R39.9 Unspecified symptoms and signs involving the genitourinary system; E11.22 Type 2 diabetes mellitus with diabetic chronic kidney disease; E03.9 Hypothyroidism, unspecified; I12.9 Hypertensive chronic kidney disease with stage 1 through stage 4 chronic kidney disease, or unspecified chronic kidney disease; N18.1 Chronic kidney disease, stage 1
CPT/HCPCS: 36415; 80053; 80061; 81001; 83036; 84439; 84443; 87077; 87086; 87186

== ENCOUNTER 2022-11-19 15:39 | Outpatient (CLI) | payer MEDICARE, OTHER, SELFPAY ==
[2022-11-19 16:33] LABS: Basophils Percent Auto 0.6 % (0.2-1.2); Eosinophils Absolute Auto 0.4 K/mm3 (0-0.3); Eosinophils Percent Auto 5.1 % (0-4.4); Hematocrit 39.5 % (37.0-47.0); Hemoglobin 12.7 g/dL (12.0-15.0); Immature Granulocyte Absolute 0.04 K/mm3 (0.00-0.031); Immature Granulocyte Percent A 0.6 % (0-0.5); Lymphocytes Absolute Auto 1.61 K/mm3 (0.9-3.2); Lymphocytes Percent Auto 22.7 % (18.3-44.2); Mean Corpuscular HGB Conc 32.2 g/dl (32-36); Mean Corpuscular Hemoglobin 30.5 pg (26-34); Mean Corpuscular Volume 94.7 fl (80-100); Mean Platelet Volume 9.6 fl (7.4-10.4); Monocytes Absolute Auto 0.9 K/mm3 (0.1-0.6); Monocytes Percent Auto 12.7 % (2.6-8.5); Neutrophils Absolute Auto 4.2 K/mm3 (1.3-6.7); Neutrophils Percent Auto 58.3 % (45.5-73.1); Platelet Count Result 223 k/mm3 (150-375); Red Blood Count 4.17 M/mm3 (4.2-5.4); Red Cell Distribution Width 13.2 % (11.5-14.5); White Blood Count 7.1 K/mm3 (4.5-10.0)
[2022-11-19 17:46] LABS: Iron 89 ug/dL (37-170)
[2022-11-19 18:00] LABS: Percent Iron Saturation 35 % (20-50)
== END 2022-11-19 15:40 | disposition home or self-care (01) ==
PROVIDERS: PCP Family Medicine
DX: D50.8 Other iron deficiency anemias (principal)
CPT/HCPCS: 36415; 82728; 83540; 83550; 85025

== ENCOUNTER 2023-03-17 09:18 | Outpatient (CLI) | payer MEDICARE, OTHER, SELFPAY ==
[2023-03-17 09:36] LABS: Basophils Percent Auto 0.6 % (0.2-1.2); Eosinophils Absolute Auto 0.3 K/mm3 (0-0.3); Eosinophils Percent Auto 5.8 % (0-4.4); Hematocrit 36.9 % (37.0-47.0); Hemoglobin 11.2 g/dL (12.0-15.0); Immature Granulocyte Absolute 0.01 K/mm3 (0.00-0.031); Immature Granulocyte Percent A 0.2 % (0-0.5); Lymphocytes Absolute Auto 0.85 K/mm3 (0.9-3.2); Lymphocytes Percent Auto 17.1 % (18.3-44.2); Mean Corpuscular HGB Conc 30.4 g/dl (32-36); Mean Corpuscular Hemoglobin 30.3 pg (26-34); Mean Corpuscular Volume 99.7 fl (80-100); Mean Platelet Volume 10.2 fl (7.4-10.4); Monocytes Absolute Auto 0.7 K/mm3 (0.1-0.6); Monocytes Percent Auto 13.7 % (2.6-8.5); Neutrophils Absolute Auto 3.1 K/mm3 (1.3-6.7); Neutrophils Percent Auto 62.6 % (45.5-73.1); Platelet Count Result 185 k/mm3 (150-375); Red Cell Distribution Width 13.6 % (11.5-14.5)
[2023-03-17 09:50] LABS: Alanine Aminotransferase 11 U/L (6-35); Albumin Level 3.6 g/dL (3.5-5.1); Alkaline Phosphatase 112 U/L (38-126); Anion Gap 2 mmol/L (8-16); Aspartate Amino Transferase 25 U/L (14-36); Bilirubin,Total 0.4 mg/dL (0.2-1.3); Blood Urea Nitrogen 19 mg/dL (7-17); Calcium 9.1 mg/dL (8.4-10.2); Carbon Dioxide 32 mmol/L (22-30); Chloride 103 mmol/L (98-107); Cholesterol 164 mg/dL (0-200); Estimated Glomerular Filt Rate 41; Glucose 90 mg/dL (65-110); HDL Direct 64 mg/dL; Hemoglobin A1C 4.7 % (<5.7); Magnesium 1.8 mg/dL (1.6-2.3); Phosphorus 3.9 mg/dL (2.5-4.5); Potassium 4.9 mmol/L (3.4-5.0); Sodium 137 mmol/L (137-145); Triglycerides 68 mg/dL (<150)
[2023-03-17 10:01] LABS: LDL Cholesterol Direct 76 mg/dL
[2023-03-17 10:33] LABS: Vitamin D 25 Hydroxy 65.5 ng/mL
[2023-03-17 10:41] LABS: Creatinine Urine 17.7 mg/dL
[2023-03-17 10:47] LABS: MALB Creatinine Ratio < 33.9 mg/g (0-30); Microalbumin Urine Random < 6.0 mg/L (0-16.7)
[2023-03-17 10:54] LABS: Folic Acid 5.3 ng/mL (2.76->20)
== END 2023-03-17 09:19 | disposition home or self-care (01) ==
PROVIDERS: PCP Family Medicine; Visit Provider Nurse Practitioner Family
DX: E55.9 Vitamin D deficiency, unspecified (principal); E11.22 Type 2 diabetes mellitus with diabetic chronic kidney disease; D50.9 Iron deficiency anemia, unspecified; Z98.890 Other specified postprocedural states; I12.9 Hypertensive chronic kidney disease with stage 1 through stage 4 chronic kidney disease, or unspecified chronic kidney disease; N18.1 Chronic kidney disease, stage 1
CPT/HCPCS: 36415; 80053; 80061; 82043; 82306; 82607; 82746; 83036; 83735; 84100; 84425; 85025

== ENCOUNTER 2023-10-14 14:54 | Outpatient (CLI) | payer MEDICARE, OTHER, SELFPAY ==
[2023-10-14 15:17] LABS: Basophils Percent Auto 0.8 % (0.2-1.2); Eosinophils Absolute Auto 0.4 K/mm3 (0-0.3); Eosinophils Percent Auto 7.1 % (0-4.4); Hemoglobin 11.6 g/dL (12.0-15.0); Immature Granulocyte Absolute 0.02 K/mm3 (0.00-0.031); Immature Granulocyte Percent A 0.4 % (0-0.5); Lymphocytes Absolute Auto 1.05 K/mm3 (0.9-3.2); Lymphocytes Percent Auto 20.6 % (18.3-44.2); Mean Corpuscular HGB Conc 32.2 g/dl (32-36); Mean Platelet Volume 9.7 fl (7.4-10.4); Monocytes Absolute Auto 0.7 K/mm3 (0.1-0.6); Monocytes Percent Auto 13.9 % (2.6-8.5); Neutrophils Absolute Auto 2.9 K/mm3 (1.3-6.7); Neutrophils Percent Auto 57.2 % (45.5-73.1); Platelet Count Result 195 k/mm3 (150-375); Red Blood Count 3.87 M/mm3 (4.2-5.4); White Blood Count 5.1 K/mm3 (4.5-10.0)
[2023-10-14 15:24] LABS: Hemoglobin A1C 5.1 % (<5.7)
[2023-10-14 15:35] LABS: Alanine Aminotransferase 12 U/L (6-35); Albumin Level 4.1 g/dL (3.5-5.1); Alkaline Phosphatase 106 U/L (38-126); Anion Gap 10 mmol/L (4-12); Aspartate Amino Transferase 25 U/L (14-36); Bilirubin,Total 0.4 mg/dL (0.2-1.3); Blood Urea Nitrogen 28 mg/dL (7-17); Calcium 8.8 mg/dL (8.4-10.2); Carbon Dioxide 27 mmol/L (22-30); Chloride 92 mmol/L (98-107); Estimated Glomerular Filt Rate 35; Glucose 86 mg/dL (65-110); Magnesium 1.4 mg/dL (1.6-2.3); Potassium 4.8 mmol/L (3.4-5.0); Sodium 129 mmol/L (137-145)
== END 2023-10-14 14:55 | disposition home or self-care (01) ==
LOC: ANHLAB 14:59
PROVIDERS: PCP Nurse Practitioner Family; Visit Provider Nurse Practitioner Family
DX: D50.9 Iron deficiency anemia, unspecified (principal); E05.90 Thyrotoxicosis, unspecified without thyrotoxic crisis or storm; E11.22 Type 2 diabetes mellitus with diabetic chronic kidney disease; G43.009 Migraine without aura, not intractable, without status migrainosus; G89.29 Other chronic pain; N18.1 Chronic kidney disease, stage 1; R25.2 Cramp and spasm; R79.89 Other specified abnormal findings of blood chemistry
CPT/HCPCS: 36415; 80053; 83036; 83735; 85025

== ENCOUNTER 2023-10-22 15:18 | Outpatient (CLI) | payer MEDICARE, OTHER, SELFPAY ==
[2023-10-22 16:30] LABS: Add Urine Microscopic? YES; Appearance Urine Clear (Clear); Bacteria Urine 4+ /hpf; Bilirubin Urine Negative (Negative); Blood Urine Negative (Negative); Color Urine Yellow (Yellow); Glucose Urine UA Negative (Negative); Ketones Urine Negative (Negative); Leukocyte Esterase Ur Negative LEU/UL (Negative); Nitrate Urine Positive (Negative); Non Pathogenic Casts 0-2; Protein Urine Negative (Negative); RBC Urine 0-2 /hpf (0-2); Specific Grav Ur 1.007 (1.001-1.035); Squamous Epithelial Cell Urine None Seen /hpf (Few); Urobilinogen Urine 0.2 mg/dL (<2.0); WBC Urine 0-5 /hpf (0-3); pH Urine 5.5 (5.0-9.0)
== END 2023-10-22 15:19 | disposition home or self-care (01) ==
LOC: ANHLAB 15:23
PROVIDERS: PCP Nurse Practitioner Family; Visit Provider Nurse Practitioner Family
DX: R39.9 Unspecified symptoms and signs involving the genitourinary system (principal); Z79.899 Other long term (current) drug therapy
CPT/HCPCS: 81001; 87077; 87086; 87088; 87186

== ENCOUNTER 2024-04-25 13:32 | Outpatient (CLI) | payer MEDICARE, SELFPAY ==
[2024-04-25 14:16] LABS: Add Urine Microscopic? YES; Appearance Urine Clear (Clear); Bacteria Urine 4+ /hpf; Bilirubin Urine Negative (Negative); Blood Urine Negative (Negative); Color Urine Yellow (Yellow); Glucose Urine UA Negative (Negative); Ketones Urine Negative (Negative); Leukocyte Esterase Ur 1+ LEU/UL (Negative); Nitrate Urine Positive (Negative); Protein Urine Negative (Negative); RBC Urine 0-2 /hpf (0-2); Specific Grav Ur 1.009 (1.001-1.035); Squamous Epithelial Cell Urine None Seen /hpf (Few); Urobilinogen Urine 0.2 mg/dL (<2.0); pH Urine 5.5 (5.0-9.0)
[2024-04-25 14:32] LABS: Alanine Aminotransferase 13 U/L (6-35); Alkaline Phosphatase 125 U/L (38-126); Anion Gap 8 mmol/L (4-12); Aspartate Amino Transferase 24 U/L (14-36); Bilirubin,Total 0.4 mg/dL (0.2-1.3); Blood Urea Nitrogen 16 mg/dL (7-17); Carbon Dioxide 28 mmol/L (22-30); Chloride 97 mmol/L (98-107); Estimated Glomerular Filt Rate 40; Glucose 94 mg/dL (65-110); Magnesium 1.5 mg/dL (1.6-2.3); Potassium 4.8 mmol/L (3.4-5.0); Sodium 133 mmol/L (137-145)
[2024-04-25 14:46] LABS: Iron 67 ug/dL (37-170)
[2024-04-25 14:58] LABS: Percent Iron Saturation 23 % (20-50)
[2024-04-25 15:00] LABS: Thyroid Stimulating Hormone 0.113 uIU/mL (0.465-4.680)
[2024-04-25 15:07] LABS: Free T4 Free Thyroxine 1.41 ng/dL (0.78-2.19)
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
--- OUTSIDE RECORDS SUMMARY | 2024-04-25 15:23 | XMS_ITS | Clinical Summary ---
Author Organization [facility] Address [address] [place] [address] Care Team Providers Care Tobacco Conditioner Name Role Phone Stephen Michael MD Primary Care Provider [phone] Source Comments [facility],non-owned Affiliates and Associated Physician Practices is amultiple site organization consisting of ambulatory clinics and hospital sitesin [place], [place], [place] and [place]. This disclosure is being madepursuant to the Care Everywhere program and may not contain all information available regarding this patient. Last updated 17.[facility] Allergies Active Allergy Reactions Criticality Noted Date Comments Tagamet Rash Medium 08/27/2017 Medications * Be aware that medications may not be up to date on this document. Alwaysverify current medications with the patient. Medication Sig Dispensed Refills Start Date End Date Status metFORMIN (GLUCOPHAGE) 500 MG tablet 03/08/2017 Active ADDERALL XR 25 MG capsule TAKE 1 CAPSULE BY MOUTH EVERY DAY IN THE MORNING UPON AWAKENING 0 07/30/2017 Active busPIRone (BUSPAR) 15 MG tablet Take 15 mg by mouth 3 times daily 1 07/31/2017 Active citalopram (CELEXA) 40 MG tablet 07/31/2017 Active cyclobenzaprine (FLEXERIL) 10 MG tablet TAKE 1 TABLET BY MOUTH THREE TIMES A DAY NEEDED 0 08/14/2017 Active esomeprazole (NEXIUM) 40 MG capsule 06/18/2017 Active HYDROcodone-acetamino phen (NORCO) 7.5-325 MG tablet TAKE 1 TABLET BY MOUTH 3 TIMES A DAY 04/28/2017 Active lisinopril (PRINIVIL;ZESTRIL) 5 MG tablet Take 5 mg by mouth 04/29/2017 Active rOPINIRole (REQUIP) 0.25 MG tablet Take 0.5 mg by mouth Active naproxen (NAPROSYN) 500 MG tablet TAKE 1 TABLET BY ORAL ROUTE 2 TIMES EVERY DAY WITH FOOD 04/02/2017 Active topiramate (TOPAMAX) 50 MG tablet Take 150 mg by mouth 11/03/2016 Active topiramate (TOPAMAX) 100 MG tablet Take 100 mg by mouth 04/24/2017 Active pravastatin (PRAVACHOL) 20 MG tablet Take 20 mg by mouth Activ e gabapentin (NEURONTIN) 300 MG capsule Take 300 mg by mouth 11/03/2016 Active Active Problems No known active problems Social History Tobacco Use Types Packs/Day Years Used Date Smoking Tobacco: Never Smokeless Tobacco: Never Alcohol Use Standard Drinks/Week Comments No 0 (1 standard drink = 0.6 oz pur e alcohol) Sex and Gender Information Value Date Recorded Sex Assigned at Not on file Gender Identity Not on file Sexual Orientation Not on file Last Filed Vital Signs Vital Sign Reading Time Taken Comments Blood Pressure 126/86 08/27/2017 3:09 PM CDT Pulse 79 08/27/2017 3:09 PM CDT Temperature 36.4 C (97.5 F) 10/29/2016 12:07 PM CDT Respiratory Rate 18 10/29/2016 12:07 PM CDT Oxygen Saturation 96% 10/29/2016 12:07 PM CDT Inhaled Oxygen Concentration - - Weight 90.7 kg (200 lb) 08/27/2017 3:09 PM CDT Height 160 cm (5' 3 ) 08/27/2017 3:09 PM CDT Body Mass Index 35.43 08/27/2017 3:09 PM CDT Plan of Treatment Health Maintenance Due Date Last Done Comments COLOGUARD (AGES 45-75) - COLON CA SCREENING 1960 COLON MONITORING 1960 COLONOSCOPY - COLON CA SCREENING 1960 CT COLONOGRAPHY - COLON CA SCREENING 1960 Colorectal Cancer Screening 1960 FIT - COLON CA SCREENING 1960 FLEX SIG - COLON CA SCREENING 1960 MAMMOGRAM 1960 MEDICARE AWV 12 MONTHS 1960 PAP SMEAR 1960 HIV SCREENING 02/27/1975 HEPATITIS C SCREENING 02/23/1978 DTAP/TDAP/TD VACCINES (1 - Tdap) 02/27/1979 PNEUMOCOCCAL VACCINE 50+ (1 of 1 - PCV) 02/27/2010 ZOSTER VACCINE (1 of 2) 02/27/2010 SCREENING FOR DIABETES 10/31/2019 7, 10/28/2016, 10/26/2016, Additional history exists COVID-19 VACCINE (1 - 2023-25 season) 2023 INFLUENZA VACCINE (#1) 2023 DEPRESSION SCREENING 02/10/2024 Respiratory Syncytial Virus (RSV) Vaccine Pt: or over 60 yrs (1 - 1-dose 75+ series) 02/27/2035 HEPATITIS B VACCINE Aged Out No longe r eligible based on patient's age to complete this topic HIB VACCINE Aged Out No longer eligi ble based on patient's age to complete this topic HPV VACCINE Aged Out No longer eligi ble based on patient's age to complete this topic MENINGOCOCCAL (Group B) VACCINE SHARED DECISION-MAKING Aged Out No longer eligible based on patient's age to complete this topic MENINGOCOCCAL GROUPS A/C/Y/W VACCINE Aged Out No longer eligible based on patient's age to complete this topic PNEUMOCOCCAL VACCINE Aged Out No long er eligible based on patient's age to complete this topic Procedures Procedure Name Priority Date/Time Associated Diagnosis Comments COMPREHENSIVE METABOLIC PANEL AM Draw 10/30/2016 4:35 AM CDT from Last 3 Months or Most Recently Relevant to Health Maintenance Results * (ABNORMAL) COMPREHENSIVE METABOLIC PANEL (10/30/2016 4:35 AM CDT) [facility] Glucose 107(H) 74 - 106 mg/dL 10/30/2016 5:19 AM CDT [facility] Sodium 137 136 - 145 mmol/L 10/30/2016 5:19 AM CDT [facility] Potassium 4.0 3.5 - 5.1 mmol/L 10/30/2016 5:19 AM CDT [facility] Chloride 105 98 - 107 mmol/L 10/30/2016 5:19 AM CDT [facility] CO2 24 22 - 31 mmol/L 10/30/2016 5:19 AM CDT [facility] Calcium 8.6 8.5 - 10.1 mg/dL 10/30/2016 5:19 AM CDT [facility] Anion Gap 8 8 - 16 mmol/L 10/30/2016 5:19 AM CDT [facility] BUN 17 7 - 21 mg/dL 10/30/2016 5:19 AM CDT [facility] Creatinine 0.91 0.50 - 1.30 mg/dL 10/30/2016 5:19 AM CDT [facility] Alkaline Phosphatase 166(H) 38 - 126 U/L 10/30/2016 5:19 AM CDT [facility] ALT 16 13 - 61 U/L 10/30/2016 5:19 AM CDT [facility] AST 14 5 - 40 U/L 10/30/2016 5:19 AM CDT [facility] Protein Total 5.5(L) 6.4 - 8.2 gm/dL 10/30/2016 5:19 AM CDT [facility] Albumin 2.4(L) 3.4 - 5.0 gm/dL 10/30/2016 5:19 AM CDT [facility] Bilirubin Total 0.3 0.2 - 1.0 mg/dL 10/30/2016 5:19 AM CDT [facility] eGFR by MDRD >60 >60 mL/min/1.7 3m2 10/30/2016 5:19 AM CDT [facility] eGFR by MDRD >60 >60 mL/min/1.7 3m2 10/30/2016 5:19 AM CDT [facility] Blood BLOOD SPECIMEN / Unknown Lab Venipuncture / Unknown 10/30/2016 4:35 AM CDT 10/30/2016 4:49 AM CDT Lauren Jessica MD LAB - CHEMISTRY ORD ERABLES [facility] [address] [place] [address] from Last 3 Months or Most Recently Relevant to Health Maintenance Advance Directives * Full Code (Latest Code Status on File) Date Activated Date Inactivated Comments 10/29/2016 4:11 PM 11/03/2016 5:09 PM Care Teams Tobacco Conditioner Relationship Specialty Start Date End Date Stephen Michael MD [address] [place] [address] PCP - General Internal Medicine 10/29/16
--- OUTSIDE RECORDS SUMMARY | 2024-04-25 15:23 | XMS_ITS | Clinical Summary ---
Author Organization [facility] Address [address] [place] [address] Phone Care Team Providers Care Instant Powder Supervisor Name Role Phone Roberta Cuellar TRAIL MAINTENANCE WORKER Unavailable [phone] Howie Biggs NP Primary Care Provider [phone] Allergies Active Allergy Reactions Criticality Noted Date Comments Cimetidine Unknown,Rash Medium 03/20/2015 Abdias Johnson No. 4 Nausea & Vomiting Low 06/22/19 19 Gabapentin Dizziness Low 03/30/2020 Nickel Other (See comments) Low 04/25/2020 Patient can't remember it. Medications ALCOHOL PREP PADS pads, medicated 9 Active metFORMIN (GLUCOPHAGE) 500 mg tablet TK 1 T PO QD WITH THE MORNING AND ALVINA MEAL 3 8 Active pravastatin (PRAVACHOL) 20 mg tablet TK 1 T PO QD 6 8 Active cyclobenzaprine (FLEXERIL) 10 mg tablet TAKE 1 TABLET BY MOUTH THREE TIMES A DAY NEEDED 8 Active dextroamphetamine -amphetamine XR (ADDERALL XR) 30 mg 24 hr capsule 0 Active rOPINIRole (REQUIP) 1 mg tablet Take 1 tablet (1 mg total) by mouth daily [address] (PROTONIX) 40 mg EC tablet Take 1 tablet (40 mg total) by mouth every morning 2 Active alendronate (FOSAMAX) 70 mg tablet TAKE 1 TABLET BY MOUTH ONCE WEEKLY 2 Active oxyCODONE-acetami nophen (PERCOCET) 5-325 mg per tablet TAKE 1 TABLET BY MOUTH EVERY 6 TO 8 HOURS NEEDED 2 Active rizatriptan (MAXALT) 10 mg tablet TAKE 1 TABLET BY MOUTH ONCE AT ONSET OF HEADACHE, MAY REPEAT IN 2 HOURS IF NEEDED, MAX 3 TABS/24 HRS 2 Active ARIPiprazole (ABILIFY) 5 mg tablet 5 MG ORALLY DAILY 2 Active dextroamphetamine -amphetamine (ADDERALL) 30 mg tablet TALE 1 TABLET BY MOUTH TWICE A DAY ADMINISTER DOSES AT LEAST 4-6 HOURS APART 3 Active semaglutide (OZEMPIC) 1 mg/dose (4 mg/3 mL) pen injector injectionIndicati ons:type 2 diabetes mellitus Inject 1 mg under the skin every 7 days 3 mL 3 Active oxyBUTYnin XL (DITROPAN-XL) 5 mg 24 hr tablet Take 1 tablet (5 mg total) by mouth daily 3 Active hydroCHLOROthiazi de 12.5 mg tablet Take 1 tablet (12.5 mg total) by mouth daily 4 Active isosorbide mononitrate ER (IMDUR) 30 mg 24 hr tabletIndications :Pulmonary hypertension (HCC),MOSS (dyspnea on exertion) TAKE 1 TABLET BY MOUTH EVERY DAY 90 tablet 1 4 Active carvediloL (COREG) 25 mg tabletIndications :Hypertension associated with diabetes (HCC),Elevated left ventricular end-diastolic pressure TAKE 1 TABLET BY MOUTH TWICE A DAY WITH FOOD 180 tablet 1 5 Active Active Problems Problem Noted Date Diagnosed Date Elevated left ventricular end-diastolic pressure (LVEDP) 06/30/2023 MOSS (dyspnea on exertion) 10/08/2021 Iron deficiency anemia secon sampson to inadequate dietary iron intake 03/22/2019 Anemia, iron deficiency 03/22/2019 RLS (restless legs syndrome) 03/18/2019 Hypersomnolence 03/18/2019 Witnessed episode of apnea 03/18/2019 Pulmonary hypertension 03/18/2019 Abnormal stress test 03/18/2019 Frequent falls 02/25/2019 Atypical chest pain 02/25/2019 Gastroesophageal reflux disease 02/25/2019 Hyperlipidemia associated with type 2 diabetes m ellitus 02/25/2019 Hypertension associated with diabetes 02/25/2019 Syncope 02/25/2019 Iron deficiency anemia, unspecified 01/19/2018 Left upper extremity swelling 11/02/2017 Immunizations Immunization Administration Dates Next Due Influenza, Quadrivalent, Split, Intramuscular Influenza, Quadrivalent, Spl it, Preservative Free, Intramuscular 11/11/2018 Influenza, Unspecified 01/01/2016,10/27/2012 Pfizer SARS-CoV-2 Monovalent Vaccination (12+ Yrs) PURPLE 06/21/2020,05/31/2020 Surgical History Surgery Date Site/Laterality Comments COLONOSCOPY SECTION TOTAL HIP ARTHROPLASTY Bilateral TOTAL KNEE ARTHROPLASTY Bilateral FEMUR SURGERY 02/10/2020 - 02/08/2021 SHOULDER SURGERY Left Medical History Medical History Date Comments Diabetes mellitus (HCC) Hypertension Hyperlipidemia Anemia Arthritis 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 Never 04/02/2021 Average Number of Drinks Not on file 022 Frequency of Binge Drinking Not on file 03/13 Personal Safety Answer Date Recorded Getting School Help Needed Not on file 02/03 Comments Unknown Sex and Gender Information Value Date Recorded Sex Assigned at Not on file Legal Sex Female 2:30 PM LEAD PRESSMAN [employer] PRINTING Gender Identity Female 10/16/2021 2:52 PM CDT Sexual Orientation Straight 10/16/2021 2: 52 PM CDT Obstetrics History Last Filed Vital Signs Vital Sign Reading Time Taken Comments Blood Pressure 116/64 06/30/2023 2:16 PM CDT Pulse 71 06/30/2023 2:16 PM CDT Temperature 36.7 C (98.1 F) 11/26/2022 12:57 PM CDT Respiratory Rate 16 11/26/2022 12:57 PM CDT Oxygen Saturation 97% 06/30/2023 2:16 PM CDT Inhaled Oxygen Concentration - - Weight 89.4 kg (197 lb) 06/30/2023 2:16 PM CDT Height 160 cm (5' 3 ) 06/30/2023 2:16 PM CDT Body Mass Index 34.9 06/30/2023 2:16 PM CDT Plan of Treatment Health Maintenance Due Date Last Done Comments Albumin Creatinine Ratio, Urine 1960 Breast Cancer Screening-Mammogram 1960 Cervical Cancer Screening 1960 Colon Cancer Screening-Colonoscopy 1960 Depression Screening 1960 Hemoglobin A1C 1960 Hepatitis C Screening 1960 eGFR 1960 Dilated Eye Exam 1960 Foot Exam 1960 DTaP/Tdap/Td Vaccine (1 - Tdap) 02/27/1971 Hepatitis B Screening 02/27/1978 Regular Well Visit/Exam 18-64 02/27/1978 Pneumococcal vaccine <65 (1 of 2 - PCV) 02/27/1979 Zoster Vaccine (1 of 2) 02/27/2010 Covid-19 Vaccine (3 - 2023-2 5 season) 2023 06/21/2020, 05/31/2020 Influenza Vaccine (#1) 2023 9, 01/11/2017, 01/01/2016, Additional history exists Lipid Panel 12/30/2023 12/29/2022, 09/11, 03/02/2020, Additional history exists Procedures Procedure Name Priority Date/Time Associated Diagnosis Comments POCT LIPID PANEL Routine 12/29/2022 3:54 PM LEAD PRESSMAN [employer]INTING Lipid screening from Last 3 Months or Most Recently Relevant to Health Maintenance Results * POCT lipid panel (12/29/2022 3:54 PM LEAD PRESSMAN [employer] PRINTING) Cholesterol, POC 155 mg/dL HDL, POC 53 mg/dL Triglycerides, POC 182 mg/dL LDL Cholesterol POC 65 mg/dL Chol/HDL Ratio, POC 2.9 Non-HDL Cholesterol, POC 102 mg/dL Cholesterol Total, POC 155 mg/dL Capillary blood 12/29/2022 3 :54 PM LEAD PRESSMAN [employer] PRINTING Anat Pace NP POINT OF CARE TEST ORDERA BLES Final Result from Last 3 Months or Most Recently Relevant to Health Maintenance Insurance MEDICARE [facility] MEDICARE [facility] MEDICARE [facility] Care Teams Instant Powder Supervisor Relationship Specialty Start Date End Date Howie Biggs NP [address] [place] [address] PCP - General Nurse Practitioner 12/29/22 Roberta Cuellar NP [address] [place] [address] Nurse Practitioner Medical Oncology 05/19/22
--- OUTSIDE RECORDS SUMMARY | 2024-04-25 15:23 | XMS_ITS | Referral Summary ---
Author Organization [facility] Address [address] [place] [address] Phone Care Team Providers Care Rn Ante Partum Name Role Phone Roberta Cuellar GIMP TACKER Unavailable [phone] Howie Biggs NP Primary Care Provider [phone] Allergies Active Allergy Reactions Criticality Noted Date [...] Hyperlipidemia associated with type 2 diabetes m candy 02/25/2019 Hypertension associated with diabetes 02/25/2019 Syncope 02/25/2019 Iron deficiency anemia, unspecified 01/19/2018 Left upper extremity swelling 11/02/2017 Immunizations Immunization Administration Dates Next Due Influenza, Quadrivalent, Split, Intramuscular Influenza, Quadrivalent, Spl it, Preservative Free, Intramuscular 11/11/2018 Influenza, Unspecified 01/01/2016,10/27/2012 Pfizer SARS-CoV-2 Monovalent Vaccination (12+ Yrs) PURPLE 06/21/2020,05/31/2020 Social History Tobacco Use Types Packs/Day Years [...] on file Legal Sex Female 2:30 PM RN CLINICAL RESOURCE Gender Identity Female 10/16/2021 2:52 PM CDT Sexual Orientation Straight 10/16/2021 2: 52 PM CDT Last Filed Vital Signs Vital Sign Reading [...] 06/30/2023 2:16 PM CDT Plan of Treatment Not on file Procedures Procedure Name Priority Date/Time Associated Diagnosis Comments POCT LIPID PANEL Routine 12/29/2022 3:54 PM RN CLINICAL RESOURCE Lipid screening from Last 3 Months or Most Recently Relevant to Health Maintenance Results * POCT lipid panel (12/29/2022 3:54 PM RN CLINICAL RESOURCE) Cholesterol, POC 155 mg/dL HDL, POC 53 mg/dL Triglycerides, POC 182 mg/dL LDL Cholesterol POC 65 mg/dL Chol/HDL Ratio, POC 2.9 Non-HDL Cholesterol, POC 102 mg/dL Cholesterol Total, POC 155 mg/dL Capillary blood 12/29/2022 3 :54 PM RN CLINICAL RESOURCE Anat Pace NP POINT OF CARE TEST ORDERA BLES Final Result from Last 3 Months or Most Recently Relevant to Health Maintenance Insurance MEDICARE [facility] [place] [address] MEDICARE [facility] [place] [address] MEDICARE [facility] Care Teams Rn Ante Partum Relationship Specialty Start Date End Date Howie Biggs NP [address] [address] PCP - General Nurse Practitioner 12/29/22 Roberta Cuellar NP [address] [place] [id number] Nurse Practitioner Medical Oncology 05/19/22
--- OUTSIDE RECORDS SUMMARY | 2024-04-25 15:24 | XMS_ITS | Referral Summary ---
Author Organization [facility] Address [address] [place] [address] Care Team Providers Care [place] Name Role Phone Stephen Michael MD Primary Care Provider [phone] Source Comments [facility],non-owned Affiliates and Associated Physician Practices is amultiple site organization consisting of ambulatory clinics and hospital sitesin [place], [place], [place] and [place]. This disclosure is being madepursuant to the Care Everywhere program and may not contain all information available regarding this patient. Last updated 17.[facility] Jacked Allergies Active Allergy Reactions Criticality Noted Date [...] 08/27/2017 3:09 PM CDT Plan of Treatment Not on file Procedures Procedure Name Priority Date/Time Associated Diagnosis Comments COMPREHENSIVE METABOLIC PANEL AM Draw 10/30/2016 4:35 AM CDT from Last 3 Months or Most Recently Relevant to Health Maintenance Results * (ABNORMAL) COMPREHENSIVE METABOLIC PANEL (10/30/2016 4:35 AM CDT) [facility] Glucose 107(H) 74 - 106 mg/dL 10/30/2016 5:19 AM CDT [facility] Sodium 137 136 - 145 mmol/L 10/30/2016 5:19 AM CDT [facility] Potassium 4.0 3.5 - 5.1 mmol/L 10/30/2016 5:19 AM CDT [facility] Chloride 105 98 - 107 mmol/L 10/30/2016 5:19 AM CDT [facility] CO2 24 22 - 31 mmol/L 10/30/2016 5:19 AM CDT [facility] Calcium 8.6 8.5 - 10.1 mg/dL 10/30/2016 5:19 AM CDT [facility] Anion Gap 8 8 - 16 mmol/L 10/30/2016 5:19 AM CDT [facility] BUN 17 7 - 21 mg/dL 10/30/2016 5:19 AM CDT [facility] Creatinine 0.91 0.50 - 1.30 mg/dL 10/30/2016 5:19 AM CDT [facility] Alkaline Phosphatase 166(H) 38 - 126 U/L 10/30/2016 5:19 AM CDT [facility] ALT 16 13 - 61 U/L 10/30/2016 5:19 AM CDT [facility] AST 14 5 - 40 U/L 10/30/2016 5:19 AM CDT [facility] Protein Total 5.5(L) 6.4 - 8.2 gm/dL 10/30/2016 5:19 AM CDT [facility] Albumin 2.4(L) 3.4 - 5.0 gm/dL 10/30/2016 5:19 AM CDT [facility] Bilirubin Total 0.3 0.2 - 1.0 mg/dL 10/30/2016 5:19 AM CDT [facility] eGFR by MDRD >60 >60 mL/min/1.7 3m2 10/30/2016 5:19 AM CDT [facility] eGFR by MDRD >60 >60 mL/min/1.7 3m2 10/30/2016 5:19 AM CDT [facility] Blood BLOOD SPECIMEN / Unknown Lab Venipuncture / Unknown 10/30/2016 4:35 AM CDT 10/30/2016 4:49 AM CDT Lauren Jessica MD LAB - CHEMISTRY ORD ERABLES [facility] [address] [place] [address] from Last 3 Months or Most Recently Relevant to Health Maintenance Advance Directives * Full Code (Latest Code Status on File) Date Activated Date Inactivated Comments 10/29/2016 4:11 PM 11/03/2016 5:09 PM Care Teams [place] Relationship Specialty Start Date End Date Stephen Michael MD [address] [place] [address] PCP - General Internal Medicine 10/29/16
--- OUTSIDE RECORDS SUMMARY | 2024-04-25 15:24 | XMS_ITS | Patient Health Summary ---
Author Organization [facility] Address [address] [place] [address] Care Team Providers Care Engineering Psychologist Name Role Phone Stephen Michael MD Primary Care Provider [phone] [facility],non-owned Affiliates and Associated Physician Practices is amultiple site organization consisting of ambulatory clinics and hospital sitesin [place], [place], [place]. This disclosure is being madepursuant to the Care Everywhere program and may not contain all information available regarding this patient. Last updated 17.[facility] Allergies * Tagamet(Rash) -Medium Criticality Medications * Be aware that medications may not be up to date on this document. Alwaysverify current medications with the patient. * metFORMIN (GLUCOPHAGE) 500 MG tablet(Started 03/08/2017) * ADDERALL XR 25 MG capsule(Started 07/30/2017) TAKE 1 CAPSULE BY MOUTH EVERY DAY IN THE MORNING UPON AWAKENING * busPIRone (BUSPAR) 15 MG tablet(Started 07/31/2017) Take 15 mg by mouth 3 times daily 1 refill left * citalopram (CELEXA) 40 MG tablet(Started 07/31/2017) * cyclobenzaprine (FLEXERIL) 10 MG tablet(Started 08/14/2017) TAKE 1 TABLET BY MOUTH THREE TIMES A DAY NEEDED * esomeprazole (NEXIUM) 40 MG capsule(Started 06/18/2017) * HYDROcodone-acetaminophen (NORCO) 7.5-325 MG tablet(Started 04/28/2017) TAKE 1 TABLET BY MOUTH 3 TIMES A DAY * lisinopril (PRINIVIL;ZESTRIL) 5 MG tablet(Started 04/29/2017) Take 5 mg by mouth * rOPINIRole (REQUIP) 0.25 MG tablet Take 0.5 mg by mouth * naproxen (NAPROSYN) 500 MG tablet(Started 04/02/2017) TAKE 1 TABLET BY ORAL ROUTE 2 TIMES EVERY DAY WITH FOOD * topiramate (TOPAMAX) 50 MG tablet(Started 11/03/2016) Take 150 mg by mouth * topiramate (TOPAMAX) 100 MG tablet(Started 04/24/2017) Take 100 mg by mouth * pravastatin (PRAVACHOL) 20 MG tablet Take 20 mg by mouth * gabapentin (NEURONTIN) 300 MG capsule(Started 11/03/2016) Take 300 mg by mouth Active Problems No known active problems Social [...] Mass Index 35.43 08/27/2017 3:09 PM CDT Procedures * XR THORACIC SPINE 2VW(Performed 08/27/2017) Performed for Fracture * XR THORACIC SPINE 2VW(Performed 08/27/2017) Performed for Fracture * XR ELBOW RIGHT 2VW(Performed 05/06/2017) * XR ELBOW RIGHT 3VW OR MORE(Performed 03/11/2017) * XR THORACOLUMBAR SPINE 2VW(Performed 01/15/2017) * XR ELBOW RIGHT 3VW OR MORE(Performed 01/07/2017) * XR THORACOLUMBAR SPINE 2VW(Performed 12/04/2016) * XR ELBOW RIGHT 3VW OR MORE(Performed 12/03/2016) * XR WRIST RIGHT 3VW OR MORE(Performed 12/03/2016) * XR HAND RIGHT 3VW OR MORE(Performed 11/12/2016) * XR ELBOW RIGHT 3VW OR MORE(Performed 11/12/2016) * OSMOLALITY URINE(Performed 10/30/2016) * OSMOLALITY BLOOD(Performed 10/30/2016) * CBC W AUTO DIFFERENTIAL(Performed 10/30/2016) * COMPREHENSIVE METABOLIC PANEL(Performed 10/30/2016) * BASIC METABOLIC PANEL (CALCIUM TOTAL)(Performed 10/28/2016) * DIFFERENTIAL MANUAL(Performed 10/26/2016) * BASIC METABOLIC PANEL (CALCIUM TOTAL)(Performed 10/26/2016) * CBC W AUTO DIFFERENTIAL(Performed 10/26/2016) * CBC W AUTO DIFFERENTIAL(Performed 10/26/2016) * XR THORACOLUMBAR SPINE 2VW(Performed 10/25/2016) * BASIC METABOLIC PANEL (CALCIUM TOTAL)(Performed 10/25/2016) * BASIC METABOLIC PANEL (CALCIUM TOTAL)(Performed 10/25/2016) * CBC W AUTO DIFFERENTIAL(Performed 10/25/2016) * CBC W AUTO DIFFERENTIAL(Performed 10/25/2016) * MAGNESIUM BLOOD(Performed 10/24/2016) * PHOSPHORUS BLOOD(Performed 10/24/2016) * DIFFERENTIAL MANUAL(Performed 10/24/2016) * BASIC METABOLIC PANEL (CALCIUM TOTAL)(Performed 10/24/2016) * CBC W AUTO DIFFERENTIAL(Performed 10/24/2016) * CBC W AUTO DIFFERENTIAL(Performed 10/24/2016) * XR ELBOW RIGHT 2VW(Performed 10/23/2016) * DRUG ABUSE PANEL 10-20+ETHANOL URINE NO CONFIRM(Performed 10/23/2016) * XR ELBOW LEFT 3VW OR MORE(Performed 10/23/2016) * XR ELBOW RIGHT 3VW OR MORE(Performed 10/23/2016) * XR FOREARM LEFT 2VW OR MORE(Performed 10/23/2016) * XR FOREARM RIGHT 2VW OR MORE(Performed 10/23/2016) * XR HUMERUS LEFT 2VW OR MORE(Performed 10/23/2016) * XR HUMERUS RIGHT 2VW OR MORE(Performed 10/23/2016) * CT HEAD WO CONTRAST(Performed 10/23/2016) * CT CERVICAL SPINE WO CONTRAST(Performed 10/23/2016) * CT THORACIC SPINE WO CONTRAST(Performed 10/23/2016) * CT LUMBAR SPINE WO CONTRAST(Performed 10/23/2016) * CT CHEST ABDOMEN PELVIS WO CONT(Performed 10/23/2016) * XR CHEST 1VW PORTABLE(Performed 10/23/2016) * CBC W AUTO DIFFERENTIAL(Performed 10/23/2016) * DIFFERENTIAL MANUAL(Performed 10/23/2016) * LIPASE BLOOD(Performed 10/23/2016) * AMYLASE BLOOD(Performed 10/23/2016) * HEPATIC FUNCTION PANEL(Performed 10/23/2016) * BASIC METABOLIC PANEL (CALCIUM TOTAL)(Performed 10/23/2016) * CBC W AUTO DIFFERENTIAL(Performed 10/23/2016) * PTT [facility](Performed 10/23/2016) * PT-INR [facility](Performed 10/23/2016) * TYPE + SCREEN PANEL(Performed 10/23/2016) * CROSSMATCH RBC LEUKOREDUCED(Performed 10/23/2016) * CULTURE URINE(Performed 10/27/2013) Results * XR THORACIC SPINE 2VW (08/27/2017 2:52 PM CDT) Only the most recent of2 resultswithin the time period is included. Anatomical Region Laterality Modality Spine Radiographic Katheryn ging 08/27/2017 2:59 PM CDT Impressions 08/27/2017 3:09 PM CDT IMPRESSION: 1.Healing/healed T12 vertebral body fracture is no longer seen. 2.No subluxation with flexion or extension views. Dictated by Leighton Aguirre MD (resident care manager). I, Dr. NINI WALKER have personally reviewed and interpreted this examination/study. This report was electronically signed by NINI WALKER on 08/27/2017 3:09 PM . Narrative 08/27/2017 3:09 PM CDT EXAMINATION: XR THORACIC SPINE 2VW, XR THORACIC SPINE 2VW HISTORY: Fracture follow-up COMPARISON: Comparison is made with a study from 01/15/2017 and 10/23/2016. FINDINGS: Thoracic spine, 2 views: The vertebral bodies are normally aligned. The T12 vertebral body fracture is healing/healed and no longer seen. No new fracture is seen. Multilevel degenerative disc and joint disease is present. On the lateral view, suture anchors are seen in the humeral head. Surgical suture line in the left upper quadrant are unchanged. Thoracic spine, flexion and extension views: There is no subluxation with flexion or extension views. Procedure Note Nini Walker DO - 08/27/2017 EXAMINATION: XR THORACIC SPINE 2VW, XR THORACIC SPINE 2VW HISTORY: Fracture follow-up COMPARISON: Comparison is made with a study from 01/15/2017 and10/23/2016. FINDINGS: Thoracic spine, 2 views: The vertebral bodies are normally aligned. The T12 vertebral bodyfracture is healing/healed and no longer seen. No new fracture is seen.Multilevel degenerative disc and joint disease is present. On the lateral view, suture anchors are seen in the humeral head. Surgical suture line in the left upper quadrant are unchanged. Thoracic spine, flexion and extension views: There is no subluxation with flexion or extension views. IMPRESSION: 1.Healing/healed T12 vertebral body fracture is no longer seen. 2.No subluxation with flexion or extension views. Dictated by Leighton Aguirre MD (resident care manager). I, Dr. NINI WALKER have personally reviewed and interpreted this examination/study. This report was electronically signed by NINI WALKER on 08/27/2017 3:09 PM . Jody Landa MD DIAGNOSTIC IMAGING O RDERABLES * XR ELBOW RIGHT 2VW (05/06/2017 9:42 AM CDT) Only the most recent of2 resultswithin the time period is included. Anatomical Region Laterality Modality Upper Extremity Other Impressions 05/06/2017 11:18 AM CDT IMPRESSION: Progressive healing of the distal humeral fracture. This report was electronically signed by MULUGETA CUMMINS MD on 05/06/2017 11:18 AM . Narrative 05/06/2017 11:18 AM CDT Exam: XR ELBOW RIGHT 3 view History: Right Distal Humerus Fracture Comparison: 03/11/2017 Findings: A mildly to moderately displaced distal humeral fracture is unchanged in alignment and demonstrates progressive healing. No new fracture or dislocation is seen. There is mild degenerative change at the elbow width osteophytes and an olecranon spur. Procedure Note Mulugeta Cummins MD - 05/16/2017 Exam: XR ELBOW RIGHT 3 view History: Right Distal Humerus Fracture Comparison: 03/11/2017 Findings: A mildly to moderately displaced distal humeral fracture is unchanged inalignment and demonstrates progressive healing. No new fracture ordislocation is seen. There is mild degenerative change at the elbow widthosteophytes and an olecranon spur. IMPRESSION IMPRESSION: Progressive healing of the distal humeral fracture. This report was electronically signed by MULUGETA CUMMINS MD on 05/06/201711:18 AM . José Luis Ward MD DIAGNOSTIC IMAGING O RDERABLES * XR ELBOW RIGHT 3VW OR MORE (03/11/2017 9:50 AM REPEAT PHOTOCOMPOSING MACHINE OPERATOR) Only the most recent of5 resultswithin the time period is included. Anatomical Region Laterality Modality Upper Extremity Other Impressions 03/11/2017 10:24 AM REPEAT PHOTOCOMPOSING MACHINE OPERATOR IMPRESSION: Healing distal humeral fracture in unchanged alignment. This report was electronically signed by MULUGETA CUMMINS MD on 03/11/2017 10:24 AM . Narrative 03/11/2017 10:24 AM REPEAT PHOTOCOMPOSING MACHINE OPERATOR Exam: XR ELBOW RIGHT 3+ VW History: Right Distal Humerus Fracture Comparison: 01/07/2017 Findings: A moderately displaced supracondylar distal humeral fracture is unchanged in alignment and is healing with progressive callus formation. There is no new fracture. No dislocation is present. Mild degenerative changes are seen in the elbow. An olecranon spur is visible. Procedure Note Mulugeta Cummins MD - 05/13/2017 Exam: XR ELBOW RIGHT 3+ VW History: Right Distal Humerus Fracture Comparison: 01/07/2017 Findings: A moderately displaced supracondylar distal humeral fracture is unchangedin alignment and is healing with progressive callus formation. There is nonew fracture. No dislocation is present. Mild degenerative changes areseen in the elbow. An olecranon spur is visible. IMPRESSION IMPRESSION: Healing distal humeral fracture in unchanged alignment. This report was electronically signed by MULUGETA CUMMINS MD on 03/11/201710:24 AM . José Luis Ward MD DIAGNOSTIC IMAGING O RDERABLES * XR THORACOLUMBAR SPINE 2VW (01/15/2017 3:24 PM REPEAT PHOTOCOMPOSING MACHINE OPERATOR) Only the most recent of3 resultswithin the time period is included. Anatomical Region Laterality Modality Spine Other Impressions 01/16/2017 11:47 AM REPEAT PHOTOCOMPOSING MACHINE OPERATOR IMPRESSION: Comparison is made with a study from 12/04/2016 at 4:22 PM. The patient is upright in a brace. Suture material overlying the left upper quadrant is unchanged. There is mild lumbar dextrocurvature. Sagittal alignment is normal. A non- retropulsed T12 compression fracture is unchanged. The sacrum is completely included to evaluate the S1 fracture. No new fracture or compression deformity is seen. Multilevel degenerative disc and joint disease is present. Report dictated by Hebert Bond M.D. (resident care manager) Dr. ALEXANDRIA Pabon M.D. have personally reviewed and interpreted this examination/study. This report was electronically signed by ALEXANDRIA RUIZ M.D. on 01/16/2017 11:47 AM . Narrative 01/16/2017 11:47 AM REPEAT PHOTOCOMPOSING MACHINE OPERATOR EXAMINATION: XR SPINE THORACOLUMBAR 2 VWS HISTORY: follow up fracture, upright films FINDINGS/ Procedure Note Alexandria Ruiz MD - 05/08/2017 EXAMINATION: XR SPINE THORACOLUMBAR 2 VWS HISTORY: follow up fracture, upright films FINDINGS/ IMPRESSION IMPRESSION: Comparison is made with a study from 12/04/2016 at 4:22 PM. The patient is upright in a brace. Suture material overlying the leftupper quadrant is unchanged. There is mild lumbar dextrocurvature. Sagittal alignment is normal. Anon- retropulsed T12 compression fracture is unchanged. The sacrum iscompletely included to evaluate the S1 fracture. No new fracture orcompression deformity is seen. Multilevel degenerative disc and joint disease is present. Report dictated by Hebert Bond M.D. (resident care manager) Dr. ALEXANDRIA Pabon M.D. have personally reviewed and interpreted thisexamination/study. This report was electronically signed by ALEXANDRIA RUIZ M.D. on 01/16/201711:47 AM . Tip Deras MD DIAGNOSTIC IMAGING O RDERABLES * XR WRIST RIGHT 3VW OR MORE (12/03/2016 11:13 AM CDT) Anatomical Region Laterality Modality Wrist / Hand Other Impressions 12/03/2016 2:32 PM CDT IMPRESSION: Mild to moderate osteoarthritis. Report dictated by Roland Alexander MD (resident care manager). Dr. MULUGETA Pabon MD have personally reviewed and interpreted this examination/study. This report was electronically signed by MULUGETA CUMMINS MD on 12/03/2016 2:32 PM . Narrative 12/03/2016 2:32 PM CDT EXAMINATION: XR WRIST RIGHT 3+ VW HISTORY: Right wrist pain COMPARISON: None FINDINGS: No acute fracture or dislocation is identified. Moderate degenerative changes are noted at the first carpometacarpal joint. Mild degenerative changes also seen at the triscaphe and radiocarpal joints. Bones are mildly demineralized. No soft tissue swelling is seen. Procedure Note Mulugeta Cummins MD - 05/08/2017 EXAMINATION: XR WRIST RIGHT 3+ VW HISTORY: Right wrist pain COMPARISON: None FINDINGS: No acute fracture or dislocation is identified. Moderate degenerativechanges are noted at the first carpometacarpal joint. Mild degenerativechanges also seen at the triscaphe and radiocarpal joints. Bones aremildly demineralized. No soft tissue swelling is seen. IMPRESSION IMPRESSION: Mild to moderate osteoarthritis. Report dictated by Roland Alexander MD (resident care manager). Dr. MULUGETA Pabon MD have personally reviewed and interpreted thisexamination/study. This report was electronically signed by MULUGETA CUMMINS MD on12/03/2016 2:32 PM . José Luis Ward MD DIAGNOSTIC IMAGING O LILYBLES * XR HAND RIGHT 3VW OR MORE (11/12/2016 10:30 AM CDT) Anatomical Region Laterality Modality Wrist / Hand Other Impressions 11/12/2016 11:05 AM CDT IMPRESSION: No acute fracture or dislocation identified. Moderate degenerative changes of the first carpometacarpal joint. Dictated by Trevor Resendez MD (resident care manager). This report was approved by Trevor Resendez M.D. on 11/12/2016 11:[address] MULUGETA Pabon MD have personally reviewed and interpreted this examination/study. This report was electronically signed by MULUGETA CUMMINS MD on 11/12/2016 11:05 AM . Narrative 11/12/2016 11:05 AM CDT EXAMINATION: XR HAND RIGHT 3+ VW HISTORY: pain COMPARISON: No prior study is available for comparison. FINDINGS: The osseous structures are intact and well aligned without acute fracture or dislocation. Moderate degenerative changes are noted at the first carpometacarpal joint. Bone density and texture are normal. No soft tissue swelling is present. Procedure Note Mulugeta Cummins MD - 05/08/2017 EXAMINATION: XR HAND RIGHT 3+ VW HISTORY: pain COMPARISON: No prior study is available for comparison. FINDINGS: The osseous structures are intact and well aligned without acute fractureor dislocation. Moderate degenerative changes are noted at the firstcarpometacarpal joint. Bone density and texture are normal. No soft tissueswelling is present. IMPRESSION IMPRESSION: No acute fracture or dislocation identified. Moderate degenerative changes of the first carpometacarpal joint. Dictated by Trevor Resendez MD (resident care manager). This report was approved by Trevor Resendez M.D. on 11/12/2016 11:[address] MULUGETA Pabon MD have personally reviewed and interpreted thisexamination/study. This report was electronically signed by MULUGETA CUMMINS MD on 11/12/201611:05 AM . José Luis Ward MD DIAGNOSTIC IMAGING O RDERABLES * OSMOLALITY URINE (10/30/2016 6:37 AM CDT) Osmolality Urine 219 50 - 1,200 mOsm/kg 10/30/2016 7:32 AM CDT [facility] Urine URINE SPECIMEN OBTAINED BY CLEAN CATCH PROCEDURE / Unknown Collection / Unknown 10/30/2016 6:37 AM CDT 10/30/2016 6:37 AM CDT Lauren Jessica MD LAB - URINE RN DOCUMENT IMPROVEMENT SPECIALIST RY ORDERABLES [facility] [address] [place] [address] * (ABNORMAL) CBC W AUTO DIFFERENTIAL (10/30/2016 4:35 AM CDT) Only the most recent of9 resultswithin the time period is included. WBC 5.0 4.4 - 10.7 x10E9/L 10/30/2016 4:58 AM CDT [facility] WBC Corrected x10E9/L 10/30/2016 4:58 AM CDT [facility] RBC 3.05(L) 3.80 - 5.20 x10E12/L 10/30/2016 4:58 AM CDT [facility] Hemoglobin 9.6(L) 12.0 - 15.6 gm/dL 10/30/2016 4:58 AM CDT [facility] Hematocrit 29.2(L) 35.9 - 45.5 % 10/30/2016 4:58 AM CDT [facility] MCV 95.7 80.7 - 98.3 fl 10/30/2016 4:58 AM CDT [facility] MCH 31.5 26.7 - 34.0 pg 10/30/2016 4:58 AM CDT [facility] MCHC 32.9 30.8 - 35.9 gm/dL 10/30/2016 4:58 AM CDT [facility] Platelet Count 195 153 - 416 x10E9/L 10/30/2016 4:58 AM CDT [facility] RDW-CV 12.8 12.1 - 14.9 % 10/30/2016 4:58 AM CDT [facility] MPV 9.5 9.4 - 12.9 fl 10/30/2016 4:58 AM CDT [facility] Neutrophils % 59.8 44.0 - 73.0 % 10/30/2016 4:58 AM CDT [facility] Lymphocytes % 16.6(L) 20.0 - 43.0 % 10/30/2016 4:58 AM CDT [facility] Monocytes % 12.4 5.0 - 13.0 % 10/30/2016 4:58 AM CDT [facility] Eosinophils % 10.4(H) 0.0 - 6.0 % 10/30/2016 4:58 AM CDT [facility] Basophils % 0.4 0.0 - 2.0 % 10/30/2016 4:58 AM CDT [facility] Immature Granulocytes 0.4 0 - 1 % 10/30/2016 4:58 AM CDT [facility] Neutrophil Absolute 3.00 2.01 - 7.14 x10E9/L 10/30/2016 4:58 AM CDT [facility] Lymphocytes Absolute 0.83(L) 1.07 - 3.94 x10E9/L 10/30/2016 4:58 AM CDT [facility] Monocytes Absolute 0.62 0.26 - 1.07 x10E9/L 10/30/2016 4:58 AM CDT [facility] Eosinophils Absolute 0.52(H) 0 - 0.47 x10E9/L 10/30/2016 4:58 AM CDT [facility] Basophils Absolute 0.02 0 - 0.08 x10E9/L 10/30/2016 4:58 AM CDT [facility] Immature Granulocytes Absolute 0.02 0.00 - 0.06 x10E9/L 10/30/2016 4:58 AM CDT [facility] nRBC Auto 0 /100 WBC 10/30/2016 4:58 AM CDT [facility] Blood BLOOD SPECIMEN / Unknown Lab Venipuncture / Unknown 10/30/2016 4:35 AM CDT 10/30/2016 4:49 AM CDT Lauren Jessica MD LAB - HEMATOLOGY OR DERABLES Performing Organization Address [facility]/State/[facility] Co de Phone Number [facility] [address] [place], [place] [id number] * (ABNORMAL) COMPREHENSIVE METABOLIC PANEL (10/30/2016 4:35 AM CDT) [facility] Glucose 107(H) 74 - 106 mg/dL 10/30/2016 5:19 AM CDT [facility] Sodium 137 136 - 145 mmol/L 10/30/2016 5:19 AM CDT [facility] Potassium 4.0 3.5 - 5.1 mmol/L 10/30/2016 5:19 AM CDT [facility] Chloride 105 98 - 107 mmol/L 10/30/2016 5:19 AM CDT [facility] CO2 24 22 - 31 mmol/L 10/30/2016 5:19 AM CDT [facility] Calcium 8.6 8.5 - 10.1 mg/dL 10/30/2016 5:19 AM CDT [facility] Anion Gap 8 8 - 16 mmol/L 10/30/2016 5:19 AM CDT [facility] BUN 17 7 - 21 mg/dL 10/30/2016 5:19 AM CDT [facility] Creatinine 0.91 0.50 - 1.30 mg/dL 10/30/2016 5:19 AM CDT [facility] Alkaline Phosphatase 166(H) 38 - 126 U/L 10/30/2016 5:19 AM CDT [facility] ALT 16 13 - 61 U/L 10/30/2016 5:19 AM CDT [facility] AST 14 5 - 40 U/L 10/30/2016 5:19 AM CDT [facility] Protein Total 5.5(L) 6.4 - 8.2 gm/dL 10/30/2016 5:19 AM CDT [facility] Albumin 2.4(L) 3.4 - 5.0 gm/dL 10/30/2016 5:19 AM CDT [facility] Bilirubin Total 0.3 0.2 - 1.0 mg/dL 10/30/2016 5:19 AM CDT [facility] eGFR by MDRD >60 >60 mL/min/1.7 3m2 10/30/2016 5:19 AM CDT [facility] eGFR by MDRD >60 >60 mL/min/1.7 3m2 10/30/2016 5:19 AM CDT [facility] Blood BLOOD SPECIMEN / Unknown Lab Venipuncture / Unknown 10/30/2016 4:35 AM CDT 10/30/2016 4:49 AM CDT Lauren Jessica MD LAB - CHEMISTRY ORD ERABLES [facility] [address] [place] [address] * OSMOLALITY BLOOD (10/30/2016 4:35 AM CDT) Osmolality 283 280 - 300 mOsm/kg 10/30/2016 5:06 AM CDT [facility] Blood BLOOD SPECIMEN / Unknown Lab Venipuncture / Unknown 10/30/2016 4:35 AM CDT 10/30/2016 4:49 AM CDT Lauren Jessica MD LAB - CHEMISTRY JOSSE DUBON Performing Organization Address City/[facility]/ZIP Co de Phone Number [facility] [address] [place] [address] * (ABNORMAL) BASIC METABOLIC PANEL (CALCIUM TOTAL) (10/28/2016 8:59 AM CDT) Only the most recent of6 resultswithin the time period is included. BUN 20 7 - 26 mg/dL [facility] Creatinine 0.9 0.6 - 1.2 mg/dL [facility] Sodium 134(L) 136 - 145 mmol/L [facility] Potassium 3.6 3.5 - 4.5 mmol/L [facility] Chloride 100 98 - 107 mmol/L [facility] CO2 24 22 - 29 mmol/L [facility] Glucose 100 70 - 115 mg/dL [facility] Calcium 9.0 8.4 - 10.2 mg/dL [facility] Anion Gap 14 8 - 18 [facility] BUN/Creatinine Ratio 22 7 - 23 [facility] Osmolality Calculated 281 270 - 300 mOsm/kg [facility] eGFR >60 >60 mL/min/1.7 3 m2 [facility] Blood specimen (specimen) BLOOD SPECIMEN / Unknown 10/28/2016 8:59 AM CDT 10/28/2016 9:05 AM CDT Tip Deras MD LAB - CHEMISTRY SALINAS SIMON Performing Organization Address City/[facility]/ZIP Co de Phone Number [facility] [address] [phone] * (ABNORMAL) DIFFERENTIAL MANUAL (10/26/2016 3:20 AM CDT) Only the most recent of3 resultswithin the time period is included. WBC (corrected for NRBC) 5.8 10 3/uL [facility] Total Cell Count 100 [facility] Neutrophils Absolute Manual 4.41 1.60 - 7.00 10 3/uL [facility] Comment:(BANDS+SEGS) x WBC = NEUT # (ANC) Lymphocyte Absolute Manual 0.52(L) 0.80 - 2.90 10 3/uL [facility] Monocytes Absolute Manual 0.70(H) 0.14 - 0.66 10 3/uL [facility] Eosinophils Absolute Manual 0.17 0.00 - 0.22 10 3/uL [facility] Band % Manual 2 0 - 10 % [facility] Neutrophil % Manual 74(H) 30 - 60 % [facility] Lymphocyte % Manual 9(L) 20 - 45 % [facility] Monocytes % Manual 12(H) 2 - 10 % [facility] Eosinophils % Manual 3 1 - 6 % [facility] Platelet Estimate Adequate Adequate [facility] RBC Morphology Normal [facility] Blood specimen (specimen) BLOOD SPECIMEN / Unknown 10/26/2016 3:20 AM CDT 10/26/2016 3:32 AM CDT Ying Mitchell MD LAB - HEMATOLOGY ORD ERABLES [address] [phone] * PHOSPHORUS BLOOD (10/24/2016 4:31 AM CDT) Phosphorus 2.8 2.3 - 4.7 mg/dL [facility] Blood specimen (specimen) BLOOD SPECIMEN / Unknown 10/24/2016 4:31 AM CDT 10/24/2016 4:50 AM CDT Joselyn Escoto THERAPY TECH-HEAD SAMPLER LAB - CHEMISTRY ORDERABLES [address] [phone] * (ABNORMAL) MAGNESIUM BLOOD (10/24/2016 4:31 AM CDT) Magnesium 1.3(L) 1.6 - 2.6 mg/dL [facility] Blood specimen (specimen) BLOOD SPECIMEN / Unknown 10/24/2016 4:31 AM CDT 10/24/2016 4:50 AM CDT Joselyn Escoto THERAPY TECH-HEAD SAMPLER LAB - CHEMISTRY ORDERABLES [facility] [address] [phone] * (ABNORMAL) DRUG ABUSE PANEL 10-20+ETHANOL URINE NO CONFIRM (10/23/2016 7:43 PM CDT) Amphetamines Screen Urine Negative Negative : < 1000 ng/mL [facility] Barbiturates Screen Urine Negative Negative : < 200 ng/mL [facility] Benzodiazepine Screen Urine Positive(A) Negative : < 200 ng/mL [facility] Comment: Positive urine benzodiazepine screening results should be confirmed by another generally accepted non-immunological method such as gas chromatography or mass spectrometry. Opiates Urine Negative Negative : < 300 ng/mL [facility] Cocaine Metabolites Urine Negative Negative : < 300 ng/mL [facility] Phencyclidine Screen Urine Negative Negative : < 25 ng/ml [facility] Cannabinoids Screen Urine Negative Negative : <50 ng/mL [facility] Methadone Screen Urine Negative Negative : < 300 ng/mL [facility] Urine specimen (specimen) 10/23/2016 7:43 PM CDT 10/23/2016 7:46 PM CDT Narrative [facility] - 10/23/2016 8:01 PM CDT The Urine Toxicology Screening Panel does not screen for Propoxyphene, Meprobamate, Carisoprodol, Trazodone, [id number] medications and/or volatiles (Acetone, Isopropanol, Methanol or Ethylene Glycol). Ethanol, Salicylate, Acetaminophen, Tricyclic Antidepressants and several therapeutic drugs may be individually assayed in serum or plasma specimen. Toxicology testing by the [facility] is an aid to medical diagnosis and treatment of patients. No documented chain of custody was maintained. Results are intended to be used for clinical purposes only. Tip Deras MD LAB - URINE CHEMISTR Y ORDERABLES [facility] [address] [phone] * XR ELBOW LEFT 3VW OR MORE (10/23/2016 7:36 PM CDT) Anatomical Region Laterality Modality Upper Extremity Other Impressions 10/24/2016 11:37 AM CDT IMPRESSION: Comminuted and displaced fracture at the distal right humeral metaphysis with 6 mm anterior displacement and posterior apex angulation. Dictated by Opal Pichardo MD (resident care manager). I, Dr. LAURA FISHER M.D. have personally reviewed and interpreted this examination/study. This report was electronically signed by LAURA FISHER M.D. on 10/24/2016 11:37 AM . Narrative 10/24/2016 11:37 AM CDT EXAMINATION: PX ELBOW LEFT 3+ VW, PX FOREARM RIGHT 2 VW, PX ELBOW RIGHT 3+ VW, PX FOREARM LEFT 2 VW HISTORY: trauma COMPARISON: None FINDINGS: Left elbow: The osseous structures are intact and well aligned without acute fracture or dislocation. The joint spaces are preserved. No joint effusion is seen. No soft tissue swelling is present. Left forearm: The radius and ulna are intact without evidence of acute fracture. No soft tissue swelling is present. Degenerative changes are noted at the first carpal metacarpal joint. Right elbow: There is comminuted and mildly displaced transverse fracture at the distal right humeral metaphysis. There is a 6 mm anterior displacement and mild medial displacement. There is posterior apex angulation. There is no evidence of dislocation. Joint effusion is seen. Soft tissue swelling of the elbow is present. Right forearm: The comminuted and displaced fracture at the distal right humeral metaphysis is better characterized on the elbow study. The radius and ulna are intact without evidence of acute fracture. Soft tissue swelling of the elbow is present. Degenerative changes are noted at the first carpal metacarpal joint. Procedure Note Laura Fisher MD - 05/08/2017 EXAMINATION: PX ELBOW LEFT 3+ VW, PX FOREARM RIGHT 2 VW, PX ELBOW RIGHT 3+ VW, PX FOREARM LEFT 2 VW HISTORY: trauma COMPARISON: None FINDINGS: Left elbow: The osseous structures are intact and well aligned without acute fractureor dislocation. The joint spaces are preserved. No joint effusion is seen.No soft tissue swelling is present. Left forearm: The radius and ulna are intact without evidence of acute fracture. Nosoft tissue swelling is present. Degenerative changes are noted at thefirst carpal metacarpal joint. Right elbow: There is comminuted and mildly displaced transverse fracture at the distalright humeral metaphysis. There is a 6 mm anterior displacement and mildmedial displacement. There is posterior apex angulation. There is noevidence of dislocation. Joint effusion is seen. Soft tissue swelling of the elbow is present. Right forearm: The comminuted and displaced fracture at the distal right humeralmetaphysis is better characterized on the elbow study. The radius and ulna are intact without evidence of acute fracture. Softtissue swelling of the elbow is present. Degenerative changes are noted atthe first carpal metacarpal joint. IMPRESSION IMPRESSION: Comminuted and displaced fracture at the distal right humeral metaphysiswith 6 mm anterior displacement and posterior apex angulation. Dictated by Opal Pichardo MD (resident care manager). Dr. LAURA Pabon M.D. have personally reviewed and interpreted thisexamination/study. This report was electronically signed by LAURA FISHER M.D. on10/24/2016 11:37 AM . Tip Deras MD DIAGNOSTIC IMAGING O RDERABLES * XR FOREARM LEFT 2VW (10/23/2016 7:36 PM CDT) Anatomical Region Laterality Modality Upper Extremity Other Impressions 10/24/2016 11:37 AM CDT IMPRESSION: Comminuted and displaced fracture at the distal right humeral metaphysis with 6 mm anterior displacement and posterior apex angulation. Dictated by Opal Pichardo MD (resident care manager). Dr. LAURA Pabon M.D. have personally reviewed and interpreted this examination/study. This report was electronically signed by LAURA FISHER M.D. on 10/24/2016 11:37 AM . Narrative 10/24/2016 11:37 AM CDT EXAMINATION: PX ELBOW LEFT 3+ VW, PX FOREARM RIGHT 2 VW, PX ELBOW RIGHT 3+ VW, PX FOREARM LEFT 2 VW HISTORY: trauma COMPARISON: None FINDINGS: Left elbow: The osseous structures are intact and well aligned without acute fracture or dislocation. The joint spaces are preserved. No joint effusion is seen. No soft tissue swelling is present. Left forearm: The radius and ulna are intact without evidence of acute fracture. No soft tissue swelling is present. Degenerative changes are noted at the first carpal metacarpal joint. Right elbow: There is comminuted and mildly displaced transverse fracture at the distal right humeral metaphysis. There is a 6 mm anterior displacement and mild medial displacement. There is posterior apex angulation. There is no evidence of dislocation. Joint effusion is seen. Soft tissue swelling of the elbow is present. Right forearm: The comminuted and displaced fracture at the distal right humeral metaphysis is better characterized on the elbow study. The radius and ulna are intact without evidence of acute fracture. Soft tissue swelling of the elbow is present. Degenerative changes are noted at the first carpal metacarpal joint. Procedure Note Laura Fisher MD - 05/08/2017 EXAMINATION: PX ELBOW LEFT 3+ VW, PX FOREARM RIGHT 2 VW, PX ELBOW RIGHT 3+ VW, PX FOREARM LEFT 2 VW HISTORY: trauma COMPARISON: None FINDINGS: Left elbow: The osseous structures are intact and well aligned without acute fractureor dislocation. The joint spaces are preserved. No joint effusion is seen.No soft tissue swelling is present. Left forearm: The radius and ulna are intact without evidence of acute fracture. Nosoft tissue swelling is present. Degenerative changes are noted at thefirst carpal metacarpal joint. Right elbow: There is comminuted and mildly displaced transverse fracture at the distalright humeral metaphysis. There is a 6 mm anterior displacement and mildmedial displacement. There is posterior apex angulation. There is noevidence of dislocation. Joint effusion is seen. Soft tissue swelling of the elbow is present. Right forearm: The comminuted and displaced fracture at the distal right humeralmetaphysis is better characterized on the elbow study. The radius and ulna are intact without evidence of acute fracture. Softtissue swelling of the elbow is present. Degenerative changes are noted atthe first carpal metacarpal joint. IMPRESSION IMPRESSION: Comminuted and displaced fracture at the distal right humeral metaphysiswith 6 mm anterior displacement and posterior apex angulation. Dictated by Opal Pichardo MD (resident care manager). Dr. LAURA Pabon M.D. have personally reviewed and interpreted thisexamination/study. This report was electronically signed by LAURA FISHER M.D. on10/24/2016 11:37 AM . Tip Deras MD DIAGNOSTIC IMAGING O RDERABLES * XR FOREARM RIGHT 2VW (10/23/2016 7:36 PM CDT) Anatomical Region Laterality Modality Upper Extremity Other Impressions 10/24/2016 11:37 AM CDT IMPRESSION: Comminuted and displaced fracture at the distal right humeral metaphysis with 6 mm anterior displacement and posterior apex angulation. Dictated by Opal Pichardo MD (resident care manager). Dr. LAURA Pabon M.D. have personally reviewed and interpreted this examination/study. This report was electronically signed by LAURA FISHER M.D. on 10/24/2016 11:37 AM . Narrative 10/24/2016 11:37 AM CDT EXAMINATION: PX ELBOW LEFT 3+ VW, PX FOREARM RIGHT 2 VW, PX ELBOW RIGHT 3+ VW, PX FOREARM LEFT 2 VW HISTORY: trauma COMPARISON: None FINDINGS: Left elbow: The osseous structures are intact and well aligned without acute fracture or dislocation. The joint spaces are preserved. No joint effusion is seen. No soft tissue swelling is present. Left forearm: The radius and ulna are intact without evidence of acute fracture. No soft tissue swelling is present. Degenerative changes are noted at the first carpal metacarpal joint. Right elbow: There is comminuted and mildly displaced transverse fracture at the distal right humeral metaphysis. There is a 6 mm anterior displacement and mild medial displacement. There is posterior apex angulation. There is no evidence of dislocation. Joint effusion is seen. Soft tissue swelling of the elbow is present. Right forearm: The comminuted and displaced fracture at the distal right humeral metaphysis is better characterized on the elbow study. The radius and ulna are intact without evidence of acute fracture. Soft tissue swelling of the elbow is present. Degenerative changes are noted at the first carpal metacarpal joint. Procedure Note Laura Fisher MD - 05/08/2017 EXAMINATION: PX ELBOW LEFT 3+ VW, PX FOREARM RIGHT 2 VW, PX ELBOW RIGHT 3+ VW, PX FOREARM LEFT 2 VW HISTORY: trauma COMPARISON: None FINDINGS: Left elbow: The osseous structures are intact and well aligned without acute fractureor dislocation. The joint spaces are preserved. No joint effusion is seen.No soft tissue swelling is present. Left forearm: The radius and ulna are intact without evidence of acute fracture. Nosoft tissue swelling is present. Degenerative changes are noted at thefirst carpal metacarpal joint. Right elbow: There is comminuted and mildly displaced transverse fracture at the distalright humeral metaphysis. There is a 6 mm anterior displacement and mildmedial displacement. There is posterior apex angulation. There is noevidence of dislocation. Joint effusion is seen. Soft tissue swelling of the elbow is present. Right forearm: The comminuted and displaced fracture at the distal right humeralmetaphysis is better characterized on the elbow study. The radius and ulna are intact without evidence of acute fracture. Softtissue swelling of the elbow is present. Degenerative changes are noted atthe first carpal metacarpal joint. IMPRESSION IMPRESSION: Comminuted and displaced fracture at the distal right humeral metaphysiswith 6 mm anterior displacement and posterior apex angulation. Dictated by Opal Pichardo MD (resident care manager). Dr. LAURA Pabon M.D. have personally reviewed and interpreted thisexamination/study. This report was electronically signed by LAURA FISHER M.D. on10/24/2016 11:37 AM . Tip Deras MD DIAGNOSTIC IMAGING O RDERABLES * XR HUMERUS LEFT 2VW OR MORE (10/23/2016 7:36 PM CDT) Anatomical Region Laterality Modality Upper Extremity Other Impressions 10/24/2016 11:37 AM CDT IMPRESSION: No acute humeral fracture identified. Dictated by Isaura Alvarez MD (resident care manager). Dr. LAURA Paobn M.D. have personally reviewed and interpreted this examination/study. This report was electronically signed by LAURA FISHER M.D. on 10/24/2016 11:37 AM . Narrative 10/24/2016 11:37 AM CDT EXAMINATION: PX HUMERUS LEFT 2+ VW HISTORY: trauma COMPARISON: No prior study is available for comparison. FINDINGS: The humerus is intact without acute fracture. The joint spaces are preserved. Procedure Note Laura Fisher MD - 05/08/2017 EXAMINATION: PX HUMERUS LEFT 2+ VW HISTORY: trauma COMPARISON: No prior study is available for comparison. FINDINGS: The humerus is intact without acute fracture. The joint spaces arepreserved. IMPRESSION IMPRESSION: No acute humeral fracture identified. Dictated by Isaura Alvarez MD (resident care manager). Dr. LAURA Pabon M.D. have personally reviewed and interpreted thisexamination/study. This report was electronically signed by LAURA FISHER M.D. on10/24/2016 11:37 AM . Tip Deras MD DIAGNOSTIC IMAGING O RDERABLES * XR HUMERUS RIGHT 2VW OR MORE (10/23/2016 7:35 PM CDT) Anatomical Region Laterality Modality Upper Extremity Other Impressions 10/24/2016 11:31 AM CDT IMPRESSION: Mildly displaced supracondylar humeral fracture. Dictated by Isaura Alvarez MD (resident care manager). Dr. LAURA Pabon M.D. have personally reviewed and interpreted this examination/study. This report was electronically signed by LAURA FISHER M.D. on 10/24/2016 11:31 AM . Narrative 10/24/2016 11:31 AM CDT EXAMINATION: PX HUMERUS RIGHT 2+ VW HISTORY: trauma COMPARISON: No prior study is available for comparison. FINDINGS: The lateral view is nonstandard. Rotator cuff anchors superimpose humerus head. There is a mildly displaced, transverse, supracondylar humeral fracture associated with soft tissue swelling around elbow joint. The distal fragment is mildly anteriorly displaced. The joint spaces are preserved. Procedure Note Laura Fisher MD - 05/08/2017 EXAMINATION: PX HUMERUS RIGHT 2+ VW HISTORY: trauma COMPARISON: No prior study is available for comparison. FINDINGS: The lateral view is nonstandard. Rotator cuff anchors superimpose humerus head. There is a mildly displaced, transverse, supracondylar humeral fractureassociated with soft tissue swelling around elbow joint. The distalfragment is mildly anteriorly displaced. The joint spaces are preserved. IMPRESSION IMPRESSION: Mildly displaced supracondylar humeral fracture. Dictated by Isaura Alvarez MD (resident care manager). Dr. LAURA Pabon M.D. have personally reviewed and interpreted thisexamination/study. This report was electronically signed by LAURA FISHER M.D. on10/24/2016 11:31 AM . Tip Deras MD DIAGNOSTIC IMAGING O RDERABLES * CT CHEST ABDOMEN PELVIS WO CONT (10/23/2016 7:10 PM CDT) Anatomical Region Laterality Modality Chest, Abdomen, Pelvis Other Impressions 10/24/2016 11:59 AM CDT IMPRESSION: 1. Left lower lobe scarring with superimposed consolidation. Recommend follow up to resolution. 2. Nonretropulsed fractures of the T12 and superior endplate of S1 vertebral bodies without significant height loss. Dictated by Polo Roldan DO (resident care manager). Dr. Rodney Pabon M.D. have personally reviewed and interpreted this examination/study. This report was electronically signed by Rodney BRUNO M.D. on 10/24/2016 11:59 AM . Narrative 10/24/2016 11:59 AM CDT EXAMINATION: Computed tomography (CT) of the chest, abdomen, and pelvis without contrast HISTORY: Chest and back pain after injury. TECHNIQUE: CT of the chest, abdomen, and pelvis was performed without contrast according to standard protocol. COMPARISON: Comparison is made to a prior abdominal and pelvic CT from an outside institution performed earlier the same day. FINDINGS: Evaluation of visceral and vascular structures is degraded due to lack of intravenous contrast administration. Chest: There is a left-sided two-vessel aortic arch. The aorta and main pulmonary arteries are normal in course and caliber. The coronary arteries and aorta are atherosclerotic. Bibasilar dependent atelectasis is present. There is a peripheral consolidation in the superior segment of the left lower lobe with associated pleural thickening. No pleural effusion is identified. There is no evidence of pneumothorax. No suspicious pulmonary nodule is identified. The trachea is patent and midline. The heart size is normal. No pericardial effusion is present. No mediastinal, supraclavicular, or axillary lymphadenopathy is seen. Abdomen/pelvis: The liver appears normal. The gallbladder is surgically absent. The intrahepatic and extrahepatic bile ducts are nondilated. There is mild fatty atrophy of the pancreas. Otherwise, the spleen and adrenal glands appear normal. The kidneys appear normal in size and configuration. There is no evidence of renal calculus or hydronephrosis. Residual contrast material within the renal collecting systems and urinary bladder. 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 Otherwise, the esophagus and stomach appear normal. The small bowel and large bowel are normal in caliber without evidence of wall thickening or obstruction. The appendix appears normal without appendicolith or surrounding inflammatory changes. No free air or free fluid is identified within the abdomen. There is no abdominal lymphadenopathy. The urinary bladder is distended with fluid and appears normal. The uterus is absent. No free fluid is seen within the pelvis. There is no pelvic lymphadenopathy. Bone windows demonstrate no suspicious lytic or blastic lesions. Fractures are seen with the anterior aspects of T12 and superior endplate of S1 without retropulsion or significant height loss. Multilevel degenerative changes are seen throughout the thoracic and lumbar spine. Bilateral total hip arthroplasties are present . Chronic fractures are seen in the left pubic rami. Procedure Note Angie Bruno MD - 05/08/2017 EXAMINATION: Computed tomography (CT) of the chest, abdomen, and pelviswithout contrast HISTORY: Chest and back pain after injury. TECHNIQUE: CT of the chest, abdomen, and pelvis was performed withoutcontrast according to standard protocol. COMPARISON: Comparison is made to a prior abdominal and pelvic CT from the [facility] performed earlier the same day. FINDINGS: Evaluation of visceral and vascular structures is degraded due to lack ofintravenous contrast administration. Chest: There is a left-sided two-vessel aortic arch. The aorta and main pulmonaryarteries are normal in course and caliber. The coronary arteries and aortaare atherosclerotic. Bibasilar dependent atelectasis is present. There is a peripheralconsolidation in the superior segment of the left lower lobe withassociated pleural thickening. No pleural effusion is identified. There isno evidence of pneumothorax. No suspicious pulmonary nodule is identified. The trachea is patent and midline. The heart size is normal. No pericardial effusion is present. Nomediastinal, supraclavicular, or axillary lymphadenopathy is seen. Abdomen/pelvis: The liver appears normal. The gallbladder is surgically absent. Theintrahepatic and extrahepatic bile ducts are nondilated. There is mildfatty atrophy of the pancreas. Otherwise, the spleen and adrenal glandsappear normal. The kidneys appear normal in size and configuration. There is no evidence of renal calculus orhydronephrosis. Residual contrast material within the renal collectingsystems and urinary bladder. 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 The small bowel andlarge bowel are normal in caliber without evidence of wall thickening orobstruction. The appendix appears normal without appendicolith or surrounding inflammatory changes. No free air orfree fluid is identified within the abdomen. There is no abdominallymphadenopathy. The urinary bladder is distended with fluid and appears normal. The uterusis absent. No free fluid is seen within the pelvis. There is no pelviclymphadenopathy. Bone windows demonstrate no suspicious lytic or blastic lesions. Fracturesare seen with the anterior aspects of T12 and superior endplate of [id number] retropulsion or significant height loss. Multilevel degenerativechanges are seen throughout the thoracic and lumbar spine. 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 Chronic fractures are seen in the left pubic rami. IMPRESSION IMPRESSION: 1. Left lower lobe scarring with superimposed consolidation. Recommendfollow up to resolution. 2. Nonretropulsed fractures of the T12 and superior endplate of [id number] bodies without significant height loss. Dictated by Polo Roldan DO (resident care manager). I, Dr. Rodney BRUNO M.D. have personally reviewed and interpreted thisexamination/study. This report was electronically signed by Rodney BRUNO M.D. on10/24/2016 11:59 AM . Tip Deras MD CT ORDERABLES * CT LUMBAR SPINE WO CONTRAST (10/23/2016 7:10 PM CDT) Anatomical Region Laterality Modality Spine Other Impressions 10/24/2016 9:49 AM CDT IMPRESSION: 1. No acute intracranial process. 2. Nonretropulsed T12 compression fracture. 3. Mildly displaced fracture of the superior endplate of S1. Possible comminuted fracture of the coccyx. 4. No acute fracture in the cervical spine. A preliminary report was entered into synapse by Dr. Hoffman on October 23, 2016 at 8:40 PM. This report was approved by Leighton Spears M.D. on 10/24/2016 9:24 AM . I, Dr. KADIE HOLDER M.D. have personally reviewed and interpreted this examination/study. This report was electronically signed by KADIE HOLDER M.D. on 10/24/2016 9:49 AM . Narrative 10/24/2016 9:49 AM CDT EXAMINATION: 1. Computed tomography (CT) of the head without contrast 2. CT of the cervical spine without contrast 3. CT of the thoracic spine without contrast 4. CT of the lumbar spine without contrast HISTORY: Headache, neck and back pain after fall. TECHNIQUE: CT of the head and cervical spine were performed without contrast according to standard protocol. Reformatted axial, sagittal, and coronal images of the thoracic and lumbar spine were obtained by the technologist from a concurrently performed body CT and sent to the workstation for review. FINDINGS: No prior study is available for comparison at the time of this dictation. Head: No acute intra- or extra-axial fluid collections are identified. There is mild cerebral volume loss with associated ex vacuo ventricular dilatation. The basilar cisterns are patent. No mass effect or midline shift is seen. The campo-white matter differentiation is normal. Periventricular white matter hypoattenuation is indicative of chronic small vessel ischemic disease. There is vascular calcification of the carotid siphons. The visualized portions of the orbits, paranasal sinuses, and mastoids appear normal. No acute fracture is identified. Cervical spine: There is minimal anterolisthesis of C4-5. Vertebral bodies are normal in height without evidence of acute fracture. Other than middle atlantoaxial joint osteoarthritis, the craniocervical junction appears normal. There is mild degenerative disc disease. 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 There are varying degrees of moderate to severe facet osteoarthritis. There are varying degrees of moderate uncovertebral joint osteoarthritis with the same degree of neural foraminal stenosis at these levels. There is atherosclerotic calcification of the carotid bifurcations. Thoracic spine: There is gentle dextrocurvature of the thoracic spine. There is a nonretropulsed vertical fracture of the T12 vertebral body without significant height loss. There is mild degenerative disc disease. There are flowing bridging osteophytes throughout the thoracic spine, consistent with diffuse idiopathic skeletal hyperostosis. No central canal stenosis is seen. The facets appear normal. No neural foraminal stenosis is seen. There is atherosclerotic calcification of the thoracic aorta and its branch vessels. Dependent atelectasis is seen in the partially imaged lungs. Lumbar spine: There is gentle levocurvature of the lumbar spine. There is a mildly displaced fracture of the superior endplate of S1. The remainder of the vertebral bodies are of preserved height. There is a possible comminuted fracture of the coccyx. A hemangioma seen in the left vertebral body of L1 measuring 2 cm. There is mild degenerative disc disease. No central canal stenosis is seen. There are varying degrees of moderate facet osteoarthritis. There are varying degrees of neural foraminal stenosis throughout the lumbar spine. There is atherosclerotic calcification of the abdominal aorta and its branch vessels. There is stranding of the subcutaneous fat of the back. Bilateral hip arthroplasties are partially imaged. Excreted contrast is seen in the renal collecting system bilaterally. Procedure Note Kadie Holder MD - 05/08/2017 EXAMINATION: 1. Computed tomography (CT) of the head without contrast 2. CT of the cervical spine without contrast 3. CT of the thoracic spine without contrast 4. CT of the lumbar spine without contrast HISTORY: Headache, neck and back pain after fall. TECHNIQUE: CT of the head and cervical spine were performed withoutcontrast according to standard protocol. Reformatted axial, sagittal, andcoronal images of the thoracic and lumbar spine were obtained by thetechnologist from a concurrently performed body CT and sent to the workstation for review. FINDINGS: No prior study is available for comparison at the time of thisdictation. Head: No acute intra- or extra-axial fluid collections are identified. There ismild cerebral volume loss with associated ex vacuo ventricular dilatation.The basilar cisterns are patent. No mass effect or midline shift is seen.The campo-white matter differentiation is normal. Periventricular white matter hypoattenuation isindicative of chronic small vessel ischemic disease. There is vascularcalcification of the carotid siphons. The visualized portions of theorbits, paranasal sinuses, and mastoids appear normal. No acute fracture is identified. Cervical spine: There is minimal anterolisthesis of C4-5. Vertebral bodies are normal inheight without evidence of acute fracture. Other than middle atlantoaxialjoint osteoarthritis, the craniocervical junction appears normal. There ismild degenerative disc disease. 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 There are varying degrees of moderate to severe facetosteoarthritis. There are varying degrees of moderate uncovertebral jointosteoarthritis with the same degree of neural foraminal stenosis at these levels. There is atheroscleroticcalcification of the carotid bifurcations. Thoracic spine: There is gentle dextrocurvature of the thoracic spine. There is anonretropulsed vertical fracture of the T12 vertebral body withoutsignificant height loss. There is mild degenerative disc disease. Thereare flowing bridging osteophytes throughout the thoracic spine, consistent with diffuse idiopathic skeletal hyperostosis.No central canal stenosis is seen. The facets appear normal. No neuralforaminal stenosis is seen. There is atherosclerotic calcification of thethoracic aorta and its branch vessels. Dependent atelectasis is seen in the partially imaged lungs. Lumbar spine: There is gentle levocurvature of the lumbar spine. There is a mildlydisplaced fracture of the superior endplate of S1. The remainder of thevertebral bodies are of preserved height. There is a possible comminutedfracture of the coccyx. A hemangioma seen in the left vertebral body of L1 measuring 2 cm. There is milddegenerative disc disease. No central canal stenosis is seen. There arevarying degrees of moderate facet osteoarthritis. There are varyingdegrees of neural foraminal stenosis throughout the lumbar spine. There is atherosclerotic calcification of theabdominal aorta and its branch vessels. There is stranding of thesubcutaneous fat of the back. Bilateral hip arthroplasties are partiallyimaged. Excreted contrast is seen in the renal collecting system bilaterally. IMPRESSION IMPRESSION: 1. No acute intracranial process. 2. Nonretropulsed T12 compression fracture. 3. Mildly displaced fracture of the superior endplate of S1. Possiblecomminuted fracture of the coccyx. 4. No acute fracture in the cervical spine. A preliminary report was entered into synapse by Dr. Hoffman on 2016 at 8:40 PM. This report was approved by Leighton Spears M.D. on 10/24/2016 9:[address] KADIE Pabon M.D. have personally reviewed and interpreted thisexamination/study. This report was electronically signed by KADIE HOLDER M.D. on 10/24/20169:49 AM . Tip Deras MD CT ORDERABLES * CT THORACIC SPINE WO CONTRAST (10/23/2016 7:10 PM CDT) Anatomical Region Laterality Modality Spine Other Impressions 10/24/2016 9:49 AM CDT IMPRESSION: 1. No acute intracranial process. 2. Nonretropulsed T12 compression fracture. 3. Mildly displaced fracture of the superior endplate of S1. Possible comminuted fracture of the coccyx. 4. No acute fracture in the cervical spine. A preliminary report was entered into synapse by Dr. Hoffman on October 23, 2016 at 8:40 PM. This report was approved by Leighton Spears M.D. on 10/24/2016 9:[address] KADIE Pabon M.D. have personally reviewed and interpreted this examination/study. This report was electronically signed by KADIE HOLDER M.D. on 10/24/2016 9:49 AM . Narrative 10/24/2016 9:49 AM CDT EXAMINATION: 1. Computed tomography (CT) of the head without contrast 2. CT of the cervical spine without contrast 3. CT of the thoracic spine without contrast 4. CT of the lumbar spine without contrast HISTORY: Headache, neck and back pain after fall. TECHNIQUE: CT of the head and cervical spine were performed without contrast according to standard protocol. Reformatted axial, sagittal, and coronal images of the thoracic and lumbar spine were obtained by the technologist from a concurrently performed body CT and sent to the workstation for review. FINDINGS: No prior study is available for comparison at the time of this dictation. Head: No acute intra- or extra-axial fluid collections are identified. There is mild cerebral volume loss with associated ex vacuo ventricular dilatation. The basilar cisterns are patent. No mass effect or midline shift is seen. The campo-white matter differentiation is normal. Periventricular white matter hypoattenuation is indicative of chronic small vessel ischemic disease. There is vascular calcification of the carotid siphons. The visualized portions of the orbits, paranasal sinuses, and mastoids appear normal. No acute fracture is identified. Cervical spine: There is minimal anterolisthesis of C4-5. Vertebral bodies are normal in height without evidence of acute fracture. Other than middle atlantoaxial joint osteoarthritis, the craniocervical junction appears normal. There is mild degenerative disc disease. 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 There are varying degrees of moderate to severe facet osteoarthritis. There are varying degrees of moderate uncovertebral joint osteoarthritis with the same degree of neural foraminal stenosis at these levels. There is atherosclerotic calcification of the carotid bifurcations. Thoracic spine: There is gentle dextrocurvature of the thoracic spine. There is a nonretropulsed vertical fracture of the T12 vertebral body without significant height loss. There is mild degenerative disc disease. There are flowing bridging osteophytes throughout the thoracic spine, consistent with diffuse idiopathic skeletal hyperostosis. No central canal stenosis is seen. The facets appear normal. No neural foraminal stenosis is seen. There is atherosclerotic calcification of the thoracic aorta and its branch vessels. Dependent atelectasis is seen in the partially imaged lungs. Lumbar spine: There is gentle levocurvature of the lumbar spine. There is a mildly displaced fracture of the superior endplate of S1. The remainder of the vertebral bodies are of preserved height. There is a possible comminuted fracture of the coccyx. A hemangioma seen in the left vertebral body of L1 measuring 2 cm. There is mild degenerative disc disease. No central canal stenosis is seen. There are varying degrees of moderate facet osteoarthritis. There are varying degrees of neural foraminal stenosis throughout the lumbar spine. There is atherosclerotic calcification of the abdominal aorta and its branch vessels. There is stranding of the subcutaneous fat of the back. Bilateral hip arthroplasties are partially imaged. Excreted contrast is seen in the renal collecting system bilaterally. Procedure Note Kadie Holder MD - 05/08/2017 EXAMINATION: 1. Computed tomography (CT) of the head without contrast 2. CT of the cervical spine without contrast 3. CT of the thoracic spine without contrast 4. CT of the lumbar spine without contrast HISTORY: Headache, neck and back pain after fall. TECHNIQUE: CT of the head and cervical spine were performed withoutcontrast according to standard protocol. Reformatted axial, sagittal, andcoronal images of the thoracic and lumbar spine were obtained by thetechnologist from a concurrently performed body CT and sent to the workstation for review. FINDINGS: No prior study is available for comparison at the time of thisdictation. Head: No acute intra- or extra-axial fluid collections are identified. There ismild cerebral volume loss with associated ex vacuo ventricular dilatation.The basilar cisterns are patent. No mass effect or midline shift is seen.The campo-white matter differentiation is normal. Periventricular white matter hypoattenuation isindicative of chronic small vessel ischemic disease. There is vascularcalcification of the carotid siphons. The visualized portions of theorbits, paranasal sinuses, and mastoids appear normal. No acute fracture is identified. Cervical spine: There is minimal anterolisthesis of C4-5. Vertebral bodies are normal inheight without evidence of acute fracture. Other than middle atlantoaxialjoint osteoarthritis, the craniocervical junction appears normal. There ismild degenerative disc disease. 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 There are varying degrees of moderate to severe facetosteoarthritis. There are varying degrees of moderate uncovertebral jointosteoarthritis with the same degree of neural foraminal stenosis at these levels. There is atheroscleroticcalcification of the carotid bifurcations. Thoracic spine: There is gentle dextrocurvature of the thoracic spine. There is anonretropulsed vertical fracture of the T12 vertebral body withoutsignificant height loss. There is mild degenerative disc disease. Thereare flowing bridging osteophytes throughout the thoracic spine, consistent with diffuse idiopathic skeletal hyperostosis.No central canal stenosis is seen. The facets appear normal. No neuralforaminal stenosis is seen. There is atherosclerotic calcification of thethoracic aorta and its branch vessels. Dependent atelectasis is seen in the partially imaged lungs. Lumbar spine: There is gentle levocurvature of the lumbar spine. There is a mildlydisplaced fracture of the superior endplate of S1. The remainder of thevertebral bodies are of preserved height. There is a possible comminutedfracture of the coccyx. A hemangioma seen in the left vertebral body of L1 measuring 2 cm. There is milddegenerative disc disease. No central canal stenosis is seen. There arevarying degrees of moderate facet osteoarthritis. There are varyingdegrees of neural foraminal stenosis throughout the lumbar spine. There is atherosclerotic calcification of theabdominal aorta and its branch vessels. There is stranding of thesubcutaneous fat of the back. Bilateral hip arthroplasties are partiallyimaged. Excreted contrast is seen in the renal collecting system bilaterally. IMPRESSION IMPRESSION: 1. No acute intracranial process. 2. Nonretropulsed T12 compression fracture. 3. Mildly displaced fracture of the superior endplate of S1. Possiblecomminuted fracture of the coccyx. 4. No acute fracture in the cervical spine. A preliminary report was entered into [employer] by Dr. Hoffman on 2016 at 8:40 PM. This report was approved by Leighton Spears M.D. on 10/24/2016 9:[address] KADIE Pabon M.D. have personally reviewed and interpreted thisexamination/study. This report was electronically signed by KADIE HOLDER M.D. on 10/24/20169:49 AM . Tip Deras MD CT ORDERABLES * CT CERVICAL SPINE WO CONTRAST (10/23/2016 7:10 PM CDT) Anatomical Region Laterality Modality Spine Other Impressions 10/24/2016 9:49 AM CDT IMPRESSION: 1. No acute intracranial process. 2. Nonretropulsed T12 compression fracture. 3. Mildly displaced fracture of the superior endplate of S1. Possible comminuted fracture of the coccyx. 4. No acute fracture in the cervical spine. A preliminary report was entered into synapse by Dr. Hoffman on October 23, 2016 at 8:40 PM. This report was approved by Leighton Spears M.D. on 10/24/2016 9:[address] KADIE Pabon M.D. have personally reviewed and interpreted this examination/study. This report was electronically signed by KADIE HOLDER M.D. on 10/24/2016 9:49 AM . Narrative 10/24/2016 9:49 AM CDT EXAMINATION: 1. Computed tomography (CT) of the head without contrast 2. CT of the cervical spine without contrast 3. CT of the thoracic spine without contrast 4. CT of the lumbar spine without contrast HISTORY: Headache, neck and back pain after fall. TECHNIQUE: CT of the head and cervical spine were performed without contrast according to standard protocol. Reformatted axial, sagittal, and coronal images of the thoracic and lumbar spine were obtained by the technologist from a concurrently performed body CT and sent to the workstation for review. FINDINGS: No prior study is available for comparison at the time of this dictation. Head: No acute intra- or extra-axial fluid collections are identified. There is mild cerebral volume loss with associated ex vacuo ventricular dilatation. The basilar cisterns are patent. No mass effect or midline shift is seen. The campo-white matter differentiation is normal. Periventricular white matter hypoattenuation is indicative of chronic small vessel ischemic disease. There is vascular calcification of the carotid siphons. The visualized portions of the orbits, paranasal sinuses, and mastoids appear normal. No acute fracture is identified. Cervical spine: There is minimal anterolisthesis of C4-5. Vertebral bodies are normal in height without evidence of acute fracture. Other than middle atlantoaxial joint osteoarthritis, the craniocervical junction appears normal. There is mild degenerative disc disease. 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 There are varying degrees of moderate to severe facet osteoarthritis. There are varying degrees of moderate uncovertebral joint osteoarthritis with the same degree of neural foraminal stenosis at these levels. There is atherosclerotic calcification of the carotid bifurcations. Thoracic spine: There is gentle dextrocurvature of the thoracic spine. There is a nonretropulsed vertical fracture of the T12 vertebral body without significant height loss. There is mild degenerative disc disease. There are flowing bridging osteophytes throughout the thoracic spine, consistent with diffuse idiopathic skeletal hyperostosis. No central canal stenosis is seen. The facets appear normal. No neural foraminal stenosis is seen. There is atherosclerotic calcification of the thoracic aorta and its branch vessels. Dependent atelectasis is seen in the partially imaged lungs. Lumbar spine: There is gentle levocurvature of the lumbar spine. There is a mildly displaced fracture of the superior endplate of S1. The remainder of the vertebral bodies are of preserved height. There is a possible comminuted fracture of the coccyx. A hemangioma seen in the left vertebral body of L1 measuring 2 cm. There is mild degenerative disc disease. No central canal stenosis is seen. There are varying degrees of moderate facet osteoarthritis. There are varying degrees of neural foraminal stenosis throughout the lumbar spine. There is atherosclerotic calcification of the abdominal aorta and its branch vessels. There is stranding of the subcutaneous fat of the back. Bilateral hip arthroplasties are partially imaged. Excreted contrast is seen in the renal collecting system bilaterally. Procedure Note Kadie Holder MD - 05/08/2017 EXAMINATION: 1. Computed tomography (CT) of the head without contrast 2. CT of the cervical spine without contrast 3. CT of the thoracic spine without contrast 4. CT of the lumbar spine without contrast HISTORY: Headache, neck and back pain after fall. TECHNIQUE: CT of the head and cervical spine were performed withoutcontrast according to standard protocol. Reformatted axial, sagittal, andcoronal images of the thoracic and lumbar spine were obtained by thetechnologist from a concurrently performed body CT and sent to the workstation for review. FINDINGS: No prior study is available for comparison at the time of thisdictation. Head: No acute intra- or extra-axial fluid collections are identified. There ismild cerebral volume loss with associated ex vacuo ventricular dilatation.The basilar cisterns are patent. No mass effect or midline shift is seen.The campo-white matter differentiation is normal. Periventricular white matter hypoattenuation isindicative of chronic small vessel ischemic disease. There is vascularcalcification of the carotid siphons. The visualized portions of theorbits, paranasal sinuses, and mastoids appear normal. No acute fracture is identified. Cervical spine: There is minimal anterolisthesis of C4-5. Vertebral bodies are normal inheight without evidence of acute fracture. Other than middle atlantoaxialjoint osteoarthritis, the craniocervical junction appears normal. There ismild degenerative disc disease. 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 There are varying degrees of moderate to severe facetosteoarthritis. There are varying degrees of moderate uncovertebral jointosteoarthritis with the same degree of neural foraminal stenosis at these levels. There is atheroscleroticcalcification of the carotid bifurcations. Thoracic spine: There is gentle dextrocurvature of the thoracic spine. There is anonretropulsed vertical fracture of the T12 vertebral body withoutsignificant height loss. There is mild degenerative disc disease. Thereare flowing bridging osteophytes throughout the thoracic spine, consistent with diffuse idiopathic skeletal hyperostosis.No central canal stenosis is seen. The facets appear normal. No neuralforaminal stenosis is seen. There is atherosclerotic calcification of thethoracic aorta and its branch vessels. Dependent atelectasis is seen in the partially imaged lungs. Lumbar spine: There is gentle levocurvature of the lumbar spine. There is a mildlydisplaced fracture of the superior endplate of S1. The remainder of thevertebral bodies are of preserved height. There is a possible comminutedfracture of the coccyx. A hemangioma seen in the left vertebral body of L1 measuring 2 cm. There is milddegenerative disc disease. No central canal stenosis is seen. There arevarying degrees of moderate facet osteoarthritis. There are varyingdegrees of neural foraminal stenosis throughout the lumbar spine. There is atherosclerotic calcification of theabdominal aorta and its branch vessels. There is stranding of thesubcutaneous fat of the back. Bilateral hip arthroplasties are partiallyimaged. Excreted contrast is seen in the renal collecting system bilaterally. IMPRESSION IMPRESSION: 1. No acute intracranial process. 2. Nonretropulsed T12 compression fracture. 3. Mildly displaced fracture of the superior endplate of S1. Possiblecomminuted fracture of the coccyx. 4. No acute fracture in the cervical spine. A preliminary report was entered into synapse by Dr. Hoffman on 2016 at 8:40 PM. This report was approved by Leighton Spears M.D. on 10/24/2016 9:24 AM. I, Dr. KADIE HOLDER M.D. have personally reviewed and interpreted thisexamination/study. This report was electronically signed by KADIE HOLDER M.D. on 10/24/20169:49 AM . Tip Deras MD CT ORDERABLES * CT HEAD WO CONTRAST (10/23/2016 7:10 PM CDT) Anatomical Region Laterality Modality Head Other Impressions 10/24/2016 9:49 AM CDT IMPRESSION: 1. No acute intracranial process. 2. Nonretropulsed T12 compression fracture. 3. Mildly displaced fracture of the superior endplate of S1. Possible comminuted fracture of the coccyx. 4. No acute fracture in the cervical spine. A preliminary report was entered into synapse by Dr. Hoffman on October 23, 2016 at 8:40 PM. This report was approved by Leighton Spears M.D. on 10/24/2016 9:24 AM . I, Dr. KADIE HOLDER M.D. have personally reviewed and interpreted this examination/study. This report was electronically signed by KADIE HOLDER M.D. on 10/24/2016 9:49 AM . Narrative 10/24/2016 9:49 AM CDT EXAMINATION: 1. Computed tomography (CT) of the head without contrast 2. CT of the cervical spine without contrast 3. CT of the thoracic spine without contrast 4. CT of the lumbar spine without contrast HISTORY: Headache, neck and back pain after fall. TECHNIQUE: CT of the head and cervical spine were performed without contrast according to standard protocol. Reformatted axial, sagittal, and coronal images of the thoracic and lumbar spine were obtained by the technologist from a concurrently performed body CT and sent to the workstation for review. FINDINGS: No prior study is available for comparison at the time of this dictation. Head: No acute intra- or extra-axial fluid collections are identified. There is mild cerebral volume loss with associated ex vacuo ventricular dilatation. The basilar cisterns are patent. No mass effect or midline shift is seen. The campo-white matter differentiation is normal. Periventricular white matter hypoattenuation is indicative of chronic small vessel ischemic disease. There is vascular calcification of the carotid siphons. The visualized portions of the orbits, paranasal sinuses, and mastoids appear normal. No acute fracture is identified. Cervical spine: There is minimal anterolisthesis of C4-5. Vertebral bodies are normal in height without evidence of acute fracture. Other than middle atlantoaxial joint osteoarthritis, the craniocervical junction appears normal. There is mild degenerative disc disease. 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 There are varying degrees of moderate to severe facet osteoarthritis. There are varying degrees of moderate uncovertebral joint osteoarthritis with the same degree of neural foraminal stenosis at these levels. There is atherosclerotic calcification of the carotid bifurcations. Thoracic spine: There is gentle dextrocurvature of the thoracic spine. There is a nonretropulsed vertical fracture of the T12 vertebral body without significant height loss. There is mild degenerative disc disease. There are flowing bridging osteophytes throughout the thoracic spine, consistent with diffuse idiopathic skeletal hyperostosis. No central canal stenosis is seen. The facets appear normal. No neural foraminal stenosis is seen. There is atherosclerotic calcification of the thoracic aorta and its branch vessels. Dependent atelectasis is seen in the partially imaged lungs. Lumbar spine: There is gentle levocurvature of the lumbar spine. There is a mildly displaced fracture of the superior endplate of S1. The remainder of the vertebral bodies are of preserved height. There is a possible comminuted fracture of the coccyx. A hemangioma seen in the left vertebral body of L1 measuring 2 cm. There is mild degenerative disc disease. No central canal stenosis is seen. There are varying degrees of moderate facet osteoarthritis. There are varying degrees of neural foraminal stenosis throughout the lumbar spine. There is atherosclerotic calcification of the abdominal aorta and its branch vessels. There is stranding of the subcutaneous fat of the back. Bilateral hip arthroplasties are partially imaged. Excreted contrast is seen in the renal collecting system bilaterally. Procedure Note Kadie Holder MD - 05/08/2017 EXAMINATION: 1. Computed tomography (CT) of the head without contrast 2. CT of the cervical spine without contrast 3. CT of the thoracic spine without contrast 4. CT of the lumbar spine without contrast HISTORY: Headache, neck and back pain after fall. TECHNIQUE: CT of the head and cervical spine were performed withoutcontrast according to standard protocol. Reformatted axial, sagittal, andcoronal images of the thoracic and lumbar spine were obtained by thetechnologist from a concurrently performed body CT and sent to the workstation for review. FINDINGS: No prior study is available for comparison at the time of thisdictation. Head: No acute intra- or extra-axial fluid collections are identified. There ismild cerebral volume loss with associated ex vacuo ventricular dilatation.The basilar cisterns are patent. No mass effect or midline shift is seen.The campo-white matter differentiation is normal. Periventricular white matter hypoattenuation isindicative of chronic small vessel ischemic disease. There is vascularcalcification of the carotid siphons. The visualized portions of theorbits, paranasal sinuses, and mastoids appear normal. No acute fracture is identified. Cervical spine: There is minimal anterolisthesis of C4-5. Vertebral bodies are normal inheight without evidence of acute fracture. Other than middle atlantoaxialjoint osteoarthritis, the craniocervical junction appears normal. There ismild degenerative disc disease. 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 There are varying degrees of moderate to severe facetosteoarthritis. There are varying degrees of moderate uncovertebral jointosteoarthritis with the same degree of neural foraminal stenosis at these levels. There is atheroscleroticcalcification of the carotid bifurcations. Thoracic spine: There is gentle dextrocurvature of the thoracic spine. There is anonretropulsed vertical fracture of the T12 vertebral body withoutsignificant height loss. There is mild degenerative disc disease. Thereare flowing bridging osteophytes throughout the thoracic spine, consistent with diffuse idiopathic skeletal hyperostosis.No central canal stenosis is seen. The facets appear normal. No neuralforaminal stenosis is seen. There is atherosclerotic calcification of thethoracic aorta and its branch vessels. Dependent atelectasis is seen in the partially imaged lungs. Lumbar spine: There is gentle levocurvature of the lumbar spine. There is a mildlydisplaced fracture of the superior endplate of S1. The remainder of thevertebral bodies are of preserved height. There is a possible comminutedfracture of the coccyx. A hemangioma seen in the left vertebral body of L1 measuring 2 cm. There is milddegenerative disc disease. No central canal stenosis is seen. There arevarying degrees of moderate facet osteoarthritis. There are varyingdegrees of neural foraminal stenosis throughout the lumbar spine. There is atherosclerotic calcification of theabdominal aorta and its branch vessels. There is stranding of thesubcutaneous fat of the back. Bilateral hip arthroplasties are partiallyimaged. Excreted contrast is seen in the renal collecting system bilaterally. IMPRESSION IMPRESSION: 1. No acute intracranial process. 2. Nonretropulsed T12 compression fracture. 3. Mildly displaced fracture of the superior endplate of S1. Possiblecomminuted fracture of the coccyx. 4. No acute fracture in the cervical spine. A preliminary report was entered into [employer] by Dr. Hoffman on 2016 at 8:40 PM. This report was approved by Leighton Spears M.D. on 10/24/2016 9:[address] KADIE Pabon M.D. have personally reviewed and interpreted thisexamination/study. This report was electronically signed by KADIE HOLDER M.D. on 10/24/20169:49 AM . Tip Deras MD CT ORDERABLES * XR CHEST 1VW PORTABLE (10/23/2016 6:47 PM CDT) Anatomical Region Laterality Modality Chest Other Impressions 10/24/2016 11:24 AM CDT IMPRESSION: Lungs are hypoinflated resulting in vascular crowding. There is no focal consolidation, pleural effusion, or pneumothorax. The cardiomediastinal silhouette is normal. T12 vertebral body fracture is partially imaged, which is better seen in the concurrent chest CT. Dictated by Isaura Alvarez MD (resident care manager). Dr. LAURA Pabon M.D. have personally reviewed and interpreted this examination/study. This report was electronically signed by LAURA FISHER M.D. on 10/24/2016 11:24 AM . Narrative 10/24/2016 11:24 AM CDT EXAMINATION: PX CHEST 1 VW HISTORY: trauma COMPARISON: No prior study is available for comparison. FINDINGS/ Procedure Note Laura Fisher MD - 05/08/2017 EXAMINATION: PX CHEST 1 VW HISTORY: trauma COMPARISON: No prior study is available for comparison. FINDINGS/ IMPRESSION IMPRESSION: Lungs are hypoinflated resulting in vascular crowding. There is no focalconsolidation, pleural effusion, or pneumothorax. The cardiomediastinalsilhouette is normal. T12 vertebral body fracture is partially imaged,which is better seen in the concurrent chest CT. Dictated by Isaura Alvarez MD (resident care manager). Dr. LAURA Pabon M.D. have personally reviewed and interpreted thisexamination/study. This report was electronically signed by LAURA FISHER M.D. on10/24/2016 11:24 AM . Tip Deras MD DIAGNOSTIC IMAGING O RDERABLES * PTT [facility] (10/23/2016 6:42 PM CDT) APTT 27.8 23.0 - 38.4 Seconds [facility] Comment:Suggested therapeuti c range for full dose I.V. heparin therapy for venous thromboembolism is 66.0-91.0 seconds. Blood specimen (specimen) BLOOD SPECIMEN / Unknown 10/23/2016 6:42 PM CDT 10/23/2016 6:42 PM CDT Narrative [facility] - 10/23/2016 7:01 PM CDT Is patient on Heparin, Argatroban or Dabigatran?->N Tip Deras MD LAB - COAGULATION OR DERABLES [address] [phone] * PT-INR [facility] (10/23/2016 6:42 PM CDT) [facility] PT 13.1 12.1 - 14.8 Seconds [facility] INR 1.0 See Comment [facility] Comment: Suggested therapeutic range for low-intensity coumadin therapy for venous thromboembolism prophylaxis is an INR of 2.0-3.0. For high risk patients (Mitral Valve Prosthesis, Atrial Fibrillation, history of TIA/stroke), suggested prophylactic therapeutic range is an INR of 2.5-3.5. Blood specimen (specimen) BLOOD SPECIMEN / Unknown 10/23/2016 6:42 PM CDT 10/23/2016 6:42 PM CDT Narrative [facility] - 10/23/2016 7:00 PM CDT Is patient on Heparin, Argatroban or Dabigatran?->N Tip Deras MD LAB - COAGULATION OR DERABLES [address] [phone] * (ABNORMAL) HEPATIC FUNCTION PANEL (10/23/2016 6:42 PM CDT) Protein Total 5.4(L) 6.0 - 8.3 g/dL [facility] Albumin 2.8(L) 3.4 - 5.0 g/dL [facility] Bilirubin Total 0.3 0.2 - 1.2 mg/dL [facility] Bilirubin Conjugated 0.1 0.0 - 0.5 mg/dL [facility] Bilirubin Unconjugated 0.2 Unconjugated Bilirubin is a calculated value: Reference ranges have not been established. mg/dL [facility] Alkaline Phosphatase 197(H) 40 - 150 Units/L [facility] ALT 22 0 - 55 Units/L [facility] AST 29 5 - 34 Units/L [facility] Albumin/Globulin Ratio 1.1 1.1 - 2.3 [facility] Blood specimen (specimen) BLOOD SPECIMEN / Unknown 10/23/2016 6:42 PM CDT 10/23/2016 6:42 PM CDT Tip Deras MD LAB - CHEMISTRY ORDTroy SIMON Performing Organization Address City/[facility] Co de Phone Number [address] [phone] * LIPASE BLOOD (10/23/2016 6:42 PM CDT) Lipase 29 8 - 78 Units/L [facility] Blood specimen (specimen) BLOOD SPECIMEN / Unknown 10/23/2016 6:42 PM CDT 10/23/2016 6:42 PM CDT Tip Deras MD LAB - CHEMISTRY SALINAS SIMON Performing Organization Address City/[facility]/ZIP Co de Phone Number [address] [phone] * AMYLASE BLOOD (10/23/2016 6:42 PM CDT) Amylase 39 25 - 125 Units/L [facility] Blood specimen (specimen) BLOOD SPECIMEN / Unknown 10/23/2016 6:42 PM CDT 10/23/2016 6:42 PM CDT Tip Deras MD LAB - CHEMISTRY SALINAS SIMON [facility] [address] [phone] * CROSSMATCH RBC LEUKOREDUCED (10/23/2016 6:38 PM CDT) 10/23/2016 6:38 PM CDT 10/23/2016 6:49 PM CDT Markus Ureña MD LAB - BLOOD BANK ORDERABLES Performing Organization Address [facility]/ZIP Co de Phone Number [facility] [address] * TYPE + SCREEN PANEL (10/23/2016 6:38 PM CDT) Typem O POS [facility] Antibody Screen NEG [facility] Blood specimen (specimen) 10/23/2016 6:38 PM CDT 10/23/2016 6:47 PM CDT Jaydon Mayer MD LAB - BLOOD BANK O RDERABLES Performing Organization Address City/[facility] Co de Phone Number [facility] [address] * (ABNORMAL) CULTURE URINE (10/27/2013 12:09 PM CDT) Culture Urine ESCHERICHIA COLI(A) [facility] Comment:10,000 CFU/ML Escher ichia Coli Urine specimen (specimen) URINE SPECIMEN OBTAINED BY CLEAN CATCH PROCEDURE / Unknown 10/27/2013 12:09 PM CDT 10/27/2013 2:53 PM CDT Narrative [facility] - 10/30/2013 4:01 PM CDT AndersonSpecimen#[id number] Gomez Loc/Rm/Bed: LAB// CLN CATCH U @10/27/13 1242: URINE CULTURE added. RFLXG = UAUCC. Organism Antibiotic Method Susceptibility Escherichia coli Amikacin SUSCEPTIBILITY <=2: Sensitive Escherichia coli Ampicillin SUSCEPTIBILITY >=32: Resistant Escherichia coli Ampicillin-sulbactam SUSCEPTIBILITY >=32: Resistant Escherichia coli Cefazolin SUSCEPTIBILITY >=64: Resistant Escherichia coli Cefepime SUSCEPTIBILITY Resistant Escherichia coli Ceftazidime SUSCEPTIBILITY Resistant Escherichia coli Ceftriaxone SUSCEPTIBILITY >=64: Resistant Escherichia coli Gentamicin SUSCEPTIBILITY <=1: Sensitive Escherichia coli Imipenem SUSCEPTIBILITY <=0.25: Sensitive Escherichia coli Levofloxacin SUSCEPTIBILITY >=8: Resistant Escherichia coli Nitrofurantoin SUSCEPTIBILITY 32: Sensitive Escherichia coli Piperacillin-tazobactam SUSCEPTIBILIT Y <=4: Sensitive Escherichia coli Tobramycin SUSCEPTIBILITY <=1: Sensitive Escherichia coli Trimethoprim-sulfamethoxazole SUSCEPT IBILITY <=20: Sensitive Escherichia coli Extended-Spectrum Beta-Lactamase SUSC EPTIBILITY Pos: + Historical Provider LAB - MICROBIOLOG Y ORDERABLES [address] [phone] Care Teams Engineering Psychologist Relationship Specialty Start Date End Date Stephen Michael MD [address] [place] [address] PCP - General Internal Medicine 10/29/16
--- OUTSIDE RECORDS SUMMARY | 2024-04-25 15:24 | XMS_ITS | Clinical Summary ---
Author Organization [facility] Address [facility] [facility] [place] [address] Phone Care Team Providers Care Rn Psych Name Role Phone Unavailable Primary Care Provider Unavailabl e Allergies Active Allergy Reactions Criticality Noted Date Comments Cimetidine Other (See Comments) Low 10/29/2016 unknown Medications gabapentin (NEURONTIN) 300 MG capsule Take 1 capsule (300 mg total) by mouth nightly. 0 11/03/2016 Active topiramate (TOPAMAX) 50 MG tablet Take 3 tablets (150 mg total) by mouth 2 (two) times a day. 0 11/03/2016 Active citalopram (CeleXA) 40 MG tablet Take 1 tablet (40 mg total) by mouth once a day. 0 11/03/2016 Active metFORMIN (GLUCOPHAGE) 500 MG tablet Take 1 tablet (500 mg total) by mouth 2 (two) times a day with meals. 0 11/03/2016 Active pravastatin (PRAVACHOL) 20 MG tablet Take 1 tablet (20 mg total) by mouth nightly. 0 11/03/2016 Active rOPINIRole (REQUIP) 0.5 MG tablet Take 1 tablet (0.5 mg total) by mouth nightly. 0 11/03/2016 Active guaiFENesin (MUCINEX) 600 MG 12 hr tablet Take 1 tablet (600 mg total) by mouth 2 (two) times a day. 0 11/03/2016 Active lidocaine (LIDODERM) 5 % Place 1 patch on the skin once a day. Remove & Discard patch within 12 hours or as directed by 0 11/03/2016 Active docusate sodium 100 MG capsule Take 100 mg by mouth 2 (two) times a day. 0 11/03/2016 Active polyethylene glycol (MIRALAX) packet Take 17 g by mouth once a day. 10 each 11/03/2016 Active senna (SENOKOT) 8.6 MG tablet Take 2 tablets by mouth nightly. 0 11/03/2016 Active sodium chloride 1 G tablet Take 1 tablet (1 g total) by mouth 2 (two) times a day with meals. 0 11/03/2016 Active cyclobenzaprine (FLEXERIL) 10 MG tablet Take 1 tablet (10 mg total) by mouth 3 (three) times a day as needed for muscle spasms. 0 11/03/2016 Active pantoprazole (PROTONIX) 40 MG EC/DR tablet Take 1 tablet (40 mg total) by mouth once a day. 0 11/03/2016 Active Active Problems Problem Noted Date Diagnosed Date Closed fracture of sacrum 10/29/2016 Arteriosclerotic vascular disease 10/24/2016 Coronary arteriosclerosis 10/24/2016 Closed supracondylar fracture of right humerus 0 10/24/2016 Elbow joint effusion 10/24/2016 Disorder of pancreas 10/24/2016 Fracture of coccyx 10/24/2016 Hemangioma 10/24/2016 Overview (11/03/2016): Overview: L1 Fracture of sacrum 10/24/2016 Overview (11/03/2016): Overview: S1 Compression fracture of thoracic spine 7 Traumatic injury 10/23/2016 Family History Medical History Relation Name Comments Cancer Brother Heart disease Brother No Known Problems Father Cancer Mother Relation Name Status Comments Brother Father Mother Social History Tobacco Use Types Packs/Day Years Used Date Smoking Tobacco: Never Alcohol Use Standard Drinks/Week Comments No 0 (1 standard drink = 0.6 oz pur e alcohol) Comments Unknown Sex and Gender Information Value Date Recorded Sex Assigned at Not on file Legal Sex Female 3:57 PM EDT Gender Identity Not on file Sexual Orientation Not on file Last Filed Vital Signs Vital Sign Reading Time Taken Comments Blood Pressure 115/60 11/03/2016 8:00 AM CDT Pulse 102 11/03/2016 8:00 AM CDT Temperature 36.8 C (98.3 F) 11/03/2016 8:00 AM CDT Respiratory Rate 20 11/03/2016 8:00 AM CDT Oxygen Saturation 97% 11/03/2016 8:00 AM CDT Inhaled Oxygen Concentration - - Weight 93.4 kg (206 lb) 10/29/2016 4:00 PM CDT Height 160 cm (5' 3 ) 10/29/2016 4:00 PM CDT Body Mass Index 36.49 10/29/2016 4:00 PM CDT Plan of Treatment Not on file Advance Directives * Full Resuscitation (Latest Code Status on File) Date Activated Date Inactivated Comments 10/29/2016 4:22 PM 11/03/2016 7:24 PM
--- OUTSIDE RECORDS SUMMARY | 2024-04-25 15:24 | XMS_ITS | Encounter Summary ---
Author Organization [facility] Address [address] [place] [address] Care Team Providers Care Swamper Name Role Phone Stephen Michael MD Primary Care Provider + Reason for Visit * Reason Onset Date Comments Recurring hyperkalemia 04/03/2020 Gave mess age to dr. Mendoza on cell phone Encounter Details Date Type Department Care Team (Late st Contact Info) Description 04/03/2020 Telephone [facility] Admitting [address] [place] [address] Mitch Feliciano MD [address] [place] [address] Recurring hyperkalemia (Gave message to dr. Mendoza on cell phone) Social History Tobacco Use Types Packs/Day Years Used Date Smoking Tobacco: Never Smokeless Tobacco: Never Comments No Sex and Gender Information Value Date Recorded Sex Assigned at Not on file Legal Sex Female 10:52 PM CDT Gender Identity Not on file Sexual Orientation Not on file COVID-19 Exposure Response Date Recorded In the last month, have you been in contact with someone who was confirmed or suspected to have Coronavirus / COVID-19? No / Unsure 03/30/2020 11:37 AM STEEL ANALYST documented as of this encounter Functional Status documented as of this encounter Plan of Treatment Not on file documented as of this encounter Visit Diagnoses Not on filedocumented in this encounter Care Teams Swamper Relationship Specialty Start Date End Date Stephen Michael MD [address] [place] [id number] PCP - General Internal Medicine 06/23/18 documented as of this encounter
--- OUTSIDE RECORDS SUMMARY | 2024-04-25 15:24 | XMS_ITS | Encounter Summary ---
Author Organization [facility] Address [address] [place] [address] Care Team Providers Care Metal Refiner Name Role Phone Stephen Michael MD Primary Care Provider + Reason for Visit * Reason Onset Date Comments Irregular Heart Beat 04/06/2020 JANEE AT [place] PRABHAKAR EX Encounter Details Date Type Department Care Team (Late st Contact Info) Description 04/06/2020 Telephone [facility] Admitting [address] [place] [address] [place] [address] [address] Irregular Heart Beat (JANEE AT [place] EX) Social History Tobacco Use Types Packs/Day Years [...] COVID-19? 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
[2024-04-25 15:36] LABS: Folic Acid > 20.0 ng/mL (2.76->20)
--- OUTSIDE RECORDS SUMMARY | 2024-04-25 16:05 | XMS_ITS | Encounter Summary ---
Author Organization [facility] Address [address] [place] [address] Care Team Providers Care Thread Roller Name Role Phone Stephen Micheal MD Primary Care Provider + Reason for Visit * Reason Onset Date Comments Irregular Heart Beat 04/06/2020 JANEE AT [place] PRABHAKAR EX Encounter Details Date Type Department Care Team (Late st Contact Info) Description 04/06/2020 Telephone [facility] Admitting [address] [place] [address] [place] [address] [address] Irregular Heart Beat (JANEE AT [...] COVID-19? No / Unsure 03/30/2020 11:37 AM WET PROCESS MILLER HEAD ASSISTANT documented as of this encounter Plan of Treatment Not on file documented as of this encounter Visit Diagnoses Not on filedocumented in this encounter Care Teams Thread Roller Relationship Specialty Start Date End Date Stephen Michael MD [address] [place] [address] PCP - General Internal Medicine 06/23/18 documented as of this encounter
--- OUTSIDE RECORDS SUMMARY | 2024-04-25 16:05 | XMS_ITS | Referral Summary ---
Author Organization [facility] Address [address] [place] [address] Phone Care Team Providers Care Core Paster Name Role Phone Roberta Cuellar DEDICATED LOCAL TRUCK DRIVER Unavailable [phone] Howie Biggs NP Primary Care Provider Allergies Active Allergy Reactions Criticality Noted Date [...] on file Legal Sex Female 2:30 PM VETERINARIAN POULTRY Gender Identity Female 10/16/2021 2:52 PM CDT [...] POCT LIPID PANEL Routine 12/29/2022 3:54 PM VETERINARIAN POULTRY Lipid screening from Last 3 Months or Most Recently Relevant to Health Maintenance Results * POCT lipid panel (12/29/2022 3:54 PM VETERINARIAN POULTRY) Cholesterol, POC 155 mg/dL HDL, POC 53 mg/dL Triglycerides, POC 182 mg/dL LDL Cholesterol POC 65 mg/dL Chol/HDL Ratio, POC 2.9 Non-HDL Cholesterol, POC 102 mg/dL Cholesterol Total, POC 155 mg/dL Capillary blood 12/29/2022 3 :54 PM VETERINARIAN POULTRY Anat Pace NP POINT OF CARE TEST ORDERA BLES Final Result from Last 3 Months or Most Recently Relevant to Health Maintenance Insurance MEDICARE [facility] [place] [address] [facility] [address] [place] [address] MEDICARE [facility] Care Teams Core Paster Relationship Specialty Start Date End Date Howie Biggs NP [address] [address] PCP - General Nurse Practitioner 12/29/22 Roberta Cuellar NP [address] [place] [address] Nurse Practitioner Medical Oncology 05/19/22
--- OUTSIDE RECORDS SUMMARY | 2024-04-25 16:05 | XMS_ITS | Clinical Summary ---
Author Organization [facility] Address [address] [place] [address] Phone Care Team Providers Care Autoclave Operator Name Role Phone Roberta Cuellar ROLL TUBE SETTER Unavailable [phone] Howie Biggs NP Primary Care Provider [phone] Allergies Active Allergy Reactions Criticality Noted Date [...] on file Legal Sex Female 2:30 PM NETWORK MANAGER Gender Identity Female 10/16/2021 2:52 PM CDT [...] POCT LIPID PANEL Routine 12/29/2022 3:54 PM NETWORK MANAGER Lipid screening from Last 3 Months or Most Recently Relevant to Health Maintenance Results * POCT lipid panel (12/29/2022 3:54 PM NETWORK MANAGER) Cholesterol, POC 155 mg/dL HDL, POC 53 mg/dL Triglycerides, POC 182 mg/dL LDL Cholesterol POC 65 mg/dL Chol/HDL Ratio, POC 2.9 Non-HDL Cholesterol, POC 102 mg/dL Cholesterol Total, POC 155 mg/dL Capillary blood 12/29/2022 3 :54 PM NETWORK MANAGER Anat Pace NP POINT OF CARE TEST ORDERA BLES Final Result from Last 3 Months or Most Recently Relevant to Health Maintenance Insurance MEDICARE [facility] MEDICARE [facility] MEDICARE [facility] Care Teams Autoclave Operator Relationship Specialty Start Date End Date Howie Biggs NP [address] [place] [address] PCP - General Nurse Practitioner 12/29/22 Roberta Cuellar NP [address] [place] [address] Nurse Practitioner Medical Oncology 05/19/22
--- OUTSIDE RECORDS SUMMARY | 2024-04-25 16:05 | XMS_ITS | Encounter Summary ---
Author Organization [facility] Address [address] [place] [address] Care Team Providers Care Orthopedically Impaired Teacher Name Role Phone Stephen Michael MD Primary Care Provider + Reason for Visit * Reason Onset Date Comments Recurring hyperkalemia 04/03/2020 Gave mess age to dr. Mendoza on cell phone Encounter Details Date Type Department Care Team (Late st Contact Info) Description 04/03/2020 Telephone [facility] Admitting [address] [place] [address] Mitch Feliciano MD [address] [place] [address] Recurring hyperkalemia (Gave message to [...] COVID-19? No / Unsure 03/30/2020 11:37 AM AGRICULTURAL EQUIPMENT SALESPERSON documented as of this encounter Functional Status documented as of this encounter Plan of Treatment Not on file documented as of this encounter Visit Diagnoses Not on filedocumented in this encounter Care Teams Orthopedically Impaired Teacher Relationship Specialty Start Date End Date Stephen Michael MD [address] [place] [phone] PCP - General Internal Medicine 06/23/18 documented as of this encounter
--- OUTSIDE RECORDS SUMMARY | 2024-04-25 16:06 | XMS_ITS | Clinical Summary ---
Author Organization [facility] Address [address] [place] [address] Phone Care Team Providers Care Pig Caster Name Role Phone Stephen Michael MD Primary Care Provider + Allergies Active Allergy Reactions Criticality Noted Date Comments Cimetidine Hcl Rash Low 06/21/2018 D And C [place] No. 4 Nausea and Vomiting Low 2018 [...] Comments Blood Pressure 128/71 04/11/2020 3:30 PM [employer] Pulse 99 04/11/2020 3:30 PM [employer] Temperature 36.7 C (98.1 F) 04/11/2020 3:30 PM [employer] Respiratory Rate 18 04/11/2020 3:30 PM [employer] Oxygen Saturation 100% 04/11/2020 3:30 PM [employer] Inhaled Oxygen Concentration - - Weight 91.2 kg (201 lb) 04/02/2020 12:22 PM [employer] Height 154.9 cm (5' 1 ) 03/30/2020 11:34 AM [employer] Body Mass Index 37.98 03/30/2020 11:34 AM [employer] Plan of Treatment Health Maintenance Due Date [...] series) 02/27/2035 Medical Devices Implanted Type Area Napper Grinder Device Identifier Shelf Expiration Date Model / Serial / Lot Cable Assembly Ss 1.8 X 559mm -18 - [id number] Implanted:Qty: 4 on 04/02/2020 by Familia Michelle MD at [facility] Left: Femur [employer]USHKA [employer] 03/11/2026- / / [id number] Cable Assembly Ss 1.8 X 559mm -18 - [id number] Implanted:Qty: 1 on 04/02/2020 by Familia Michelle MD at [facility] Left: Femur [employer]USHKA [employer] 03/11/202423-4502-110- / / [id number] Distal Lateral Femoral Locking Plate 18h Lt Implanted:Qty: 1 on 04/02/2020 by Familia Michelle MD at [facility] Plate Left: Femur [employer] [id number] / 10/01/2019 4075 Description:Entered by OKSANA 1x Add [id number] Angie Locking Screw 4.5mm X 46mm Implanted:Qty: 1 on 04/02/2020 by Familia Michelle MD at [facility] Screw Left: Femur [employer] [id number] / 10/01/2019 4075 Description:Entered by OKSA[employer] 1x Add Screw Angie Loc 5.5x70mm [id number] - [id number] Implanted:Qty: 2 on 04/02/2020 by Familia Michelle MD at [facility] Screw Left: Femur [employer]KA [employer] [id number] / / Description:Load # [id number] Sterilized 10/25/2019 Screw Angie Loc 5.5x80mm 36-6091-906-55 - [id number] Implanted:Qty: 1 on 04/02/2020 by Familia Michelle MD at [facility] Screw Left: Femur [employer] [id number] / / Description:Load # 202 [id number] Sterilized 10/25/2019 Screw Angie Loc 4.5x38mm [id number] - [id number] Implanted:Qty: 1 on 04/02/2020 by Familia Michelle MD at [facility] Screw Left: Femur [employer] [id number] / / Description:Load # 202 [id number] Sterilized 10/25/2019 Screw Angie Loc 4.5x45mm [id number] - [id number] Implanted:Qty: 1 on 04/02/2020 by Familia Michelle MD at [facility] Left: Femur [employer] [id number] / / Description:Load # [id number] Sterilized 10/25/2019 Angie Cannulated Locking Screw 5.5mm X 75mm Implanted:Qty: 2 on 04/02/2020 by Familia Michelle MD at [facility] Screw Left: Femur [employer] [id number] / 10-25-2019 / [id number] Description:Entered by OKSA[employer] 1x Add Button Cable-Ready Fusing Furnace Loader 2.5mm Hex 5.5mm Angie/Prox 60-3774-351-55 - [id number] Implanted:Qty: 4 on 04/02/2020 [facility] Femur [employer] 02/08/2029 [id number] / / [id number] Description:[id number] Button Cable-Ready Fusing Furnace Loader 2.5mm Hex 5.5mm Angie/Prox [id number] - [id number] Implanted:Qty: 1 on 04/02/2020 by Familia Michelle MD at [facility] Left: Femur [employer] 02/08/2029 [id number] / / [id number] Left Hip Left Knee Right Hip Right Knee Insurance MEDICARE PART A AND B [facility] [employer] Medicare Part D MEDICARE PART A AND B Advance Directives For more information, please contact: [phone] * Full Code (Latest Code Status on File) Date Activated Date Inactivated Comments 03/30/2020 2:18 PM 04/11/2020 6:38 PM * Full Code Date Activated Date Inactivated Comments 06/22/2018 7:19 PM 06/23/2018 9:18 PM Care Teams Pig Caster Relationship Specialty Start Date End Date Stephen Michael MD [address] [place] [id number] PCP - General Internal Medicine 06/23/18
--- OUTSIDE RECORDS SUMMARY | 2024-04-25 16:06 | XMS_ITS | Clinical Summary ---
Author Organization [facility] Address [address] [place] [address] Care Team Providers Care Advisor To Command In Combat Name Role Phone Stephen Michael MD Primary Care Provider [phone] Source Comments [facility],non-owned Affiliates and Associated Physician Practices is amultiple site organization consisting of ambulatory clinics and hospital sitesin [place], [place] and [place]. This disclosure is being madepursuant to the Care Everywhere program and may not contain all information available regarding this patient. Last updated 17.[facility] Allergies Active Allergy Reactions Criticality Noted Date [...] COMPREHENSIVE METABOLIC PANEL (10/30/2016 4:35 AM CDT) [facility] Glucose 107(H) 74 - 106 mg/dL 10/30/2016 5:19 AM CDT [facility] Sodium 137 136 - 145 mmol/L 10/30/2016 5:19 AM CDT [facility] Potassium 4.0 3.5 - 5.1 mmol/L 10/30/2016 5:19 AM CDT [facility] Chloride 105 98 - 107 mmol/L 10/30/2016 5:19 AM CDT [facility] CO2 24 22 - 31 mmol/L 10/30/2016 5:19 AM CDT [facility] Calcium 8.6 8.5 - 10.1 [...] Jessica MD LAB - CHEMISTRY ORD ERABLES [facility] [address] [place] [address] from Last 3 Months or Most Recently Relevant to Health Maintenance Advance Directives * Full Code (Latest Code Status on File) Date Activated Date Inactivated Comments 10/29/2016 4:11 PM 11/03/2016 5:09 PM Care Teams Advisor To Command In Combat Relationship Specialty Start Date End Date Stephen Michael MD [address] [place] [address] PCP - General Internal Medicine 10/29/16
--- OUTSIDE RECORDS SUMMARY | 2024-04-25 16:07 | XMS_ITS | Clinical Summary ---
Author Organization [facility] Address [facility] [address] Phone Care Team Providers Care Stain Maker Name Role Phone Unavailable Primary Care Provider [...]
--- OUTSIDE RECORDS SUMMARY | 2024-04-25 16:07 | XMS_ITS | Patient Health Summary ---
Author Organization [facility] Address [address] [place] [address] Care Team Providers Care Inserting Operator Name Role Phone Stephen Michael MD Primary Care Provider [phone] Note from [facility] [place][note 2],non-owned Affiliates and Associated Physician Practices is amultiple site organization consisting of ambulatory clinics and hospital sitesin [place], [place], [place] and [place]. This disclosure is being madepursuant to the Care Everywhere program and may not contain all information available regarding this patient. Last updated 17.[facility] Allergies * Tagamet(Rash) -Medium Criticality Medications * [...] extension views. Dictated by Leighton Aguirre MD (care program resident). I, Dr. NINI WALKER have personally reviewed [...] extension views. Dictated by Leighton Aguirre MD (care program resident). I, Dr. NINI WALKER have personally reviewed [...] RIGHT 3VW OR MORE (03/11/2017 9:50 AM CORPORATE SECRETARY) Only the most recent of5 resultswithin the time period is included. Anatomical Region Laterality Modality Upper Extremity Other Impressions 03/11/2017 10:24 AM CORPORATE SECRETARY IMPRESSION: Healing distal humeral fracture in unchanged alignment. This report was electronically signed by MULUGETA CUMMINS MD on 03/11/2017 10:24 AM . Narrative 03/11/2017 10:24 AM CORPORATE SECRETARY Exam: XR ELBOW RIGHT 3+ VW History: [...] XR THORACOLUMBAR SPINE 2VW (01/15/2017 3:24 PM CORPORATE SECRETARY) Only the most recent of3 resultswithin the time period is included. Anatomical Region Laterality Modality Spine Other Impressions 01/16/2017 11:47 AM CORPORATE SECRETARY IMPRESSION: Comparison is made with a study [...] present. Report dictated by Hebert Bond M.D. (care program resident) Dr. ALEXANDRIA Pabon M.D. have personally reviewed and interpreted this examination/study. This report was electronically signed by ALEXANDRIA RUIZ M.D. on 01/16/2017 11:47 AM . Narrative 01/16/2017 11:47 AM CORPORATE SECRETARY EXAMINATION: XR SPINE THORACOLUMBAR 2 VWS HISTORY: [...] present. Report dictated by Hebert Bond M.D. (care program resident) Dr. ALEXANDRIA Pabon M.D. have personally reviewed [...] osteoarthritis. Report dictated by Roland Alexander MD (care program resident). Dr. MULUGETA Pabon MD have personally reviewed [...] osteoarthritis. Report dictated by Roland Alexander MD (care program resident). Dr. MULUGETA Pabon MD have personally reviewed [...] carpometacarpal joint. Dictated by Trevor Resendez MD (care program resident). This report was approved by Trevor Resendez [...] carpometacarpal joint. Dictated by Trevor Resendez MD (care program resident). This report was approved by Trevor Resendez M.D. on 11/12/2016 11:[address] MULUGETA Pabon MD have personally reviewed and interpreted thisexamination/study. This report was electronically signed by MULUGETA CUMMINS MD on 11/12/201611:05 AM . José Luis Ward MD DIAGNOSTIC IMAGING O RDERABLES * OSMOLALITY URINE (10/30/2016 6:37 AM CDT) Osmolality Urine 219 50 - 1,200 mOsm/kg 10/30/2016 7:32 AM CDT [facility] Urine URINE SPECIMEN OBTAINED BY CLEAN CATCH PROCEDURE / Unknown Collection / Unknown 10/30/2016 6:37 AM CDT 10/30/2016 6:37 AM CDT Lauren Jessica MD LAB - URINE TRUST MANAGER RY ORDERABLES [facility] [address] [place] [address] * (ABNORMAL) CBC W AUTO DIFFERENTIAL (10/30/2016 4:35 AM CDT) Only the most recent of9 resultswithin the time period is included. WBC 5.0 4.4 - 10.7 x10E9/L 10/30/2016 4:58 AM CDT [facility] WBC Corrected x10E9/L 10/30/2016 4:58 AM CDT [facility] RBC 3.05(L) 3.80 - 5.20 x10E12/L 10/30/2016 4:58 AM CDT [facility] Hemoglobin 9.6(L) 12.0 - 15.6 gm/dL 10/30/2016 4:58 AM CDT [facility] Hematocrit 29.2(L) 35.9 - 45.5 % 10/30/2016 4:58 AM CDT [facility] MCV 95.7 80.7 - 98.3 fl 10/30/2016 4:58 AM CDT [facility] MCH 31.5 26.7 - 34.0 pg 10/30/2016 4:58 AM CDT [facility] MCHC 32.9 30.8 - 35.9 gm/dL 10/30/2016 4:58 AM CDT [facility] Platelet Count 195 153 - 416 x10E9/L 10/30/2016 4:58 AM CDT [facility] RDW-CV 12.8 12.1 - 14.9 % 10/30/2016 4:58 AM CDT [facility] MPV 9.5 9.4 - 12.9 fl 10/30/2016 4:58 AM CDT [facility] Neutrophils % 59.8 44.0 - 73.0 % 10/30/2016 4:58 AM CDT [facility] Lymphocytes % 16.6(L) 20.0 - 43.0 % 10/30/2016 4:58 AM CDT [facility] Monocytes % 12.4 5.0 - 13.0 % 10/30/2016 4:58 AM CDT [facility] Eosinophils % 10.4(H) 0.0 - 6.0 % 10/30/2016 4:58 AM CDT [facility] Basophils % 0.4 0.0 - 2.0 % 10/30/2016 4:58 AM CDT [facility] Immature Granulocytes 0.4 0 - 1 % 10/30/2016 4:58 AM CDT [facility] Neutrophil Absolute 3.00 2.01 - 7.14 x10E9/L 10/30/2016 4:58 AM CDT [facility] Lymphocytes Absolute 0.83(L) 1.07 - 3.94 x10E9/L 10/30/2016 4:58 AM CDT [facility] Monocytes Absolute 0.62 0.26 - 1.07 x10E9/L 10/30/2016 4:58 AM CDT [facility] Eosinophils Absolute 0.52(H) 0 - 0.47 x10E9/L 10/30/2016 4:58 AM CDT [facility] Basophils Absolute 0.02 0 - 0.08 x10E9/L 10/30/2016 4:58 AM CDT [facility] Immature Granulocytes Absolute 0.02 0.00 - 0.06 x10E9/L 10/30/2016 4:58 AM CDT [facility] nRBC Auto 0 /100 WBC 10/30/2016 4:58 AM CDT [facility] Blood BLOOD SPECIMEN / Unknown Lab Venipuncture / Unknown 10/30/2016 4:35 AM CDT 10/30/2016 4:49 AM CDT Lauren Jessica MD LAB - HEMATOLOGY OR DERABLES Performing Organization Address [facility]/State/[facility] Co de Phone Number [facility] [address], [place] [id number] * (ABNORMAL) COMPREHENSIVE METABOLIC PANEL (10/30/2016 4:35 AM CDT) [facility] Glucose 107(H) 74 - 106 mg/dL 10/30/2016 5:19 AM CDT [facility] Sodium 137 136 - 145 mmol/L 10/30/2016 5:19 AM CDT [facility] Potassium 4.0 3.5 - 5.1 mmol/L 10/30/2016 5:19 AM CDT [facility] Chloride 105 98 - 107 mmol/L 10/30/2016 5:19 AM CDT [facility] CO2 24 22 - 31 mmol/L 10/30/2016 5:19 AM CDT [facility] Calcium 8.6 8.5 - 10.1 mg/dL 10/30/2016 5:19 AM CDT [facility] Anion Gap 8 8 - 16 mmol/L 10/30/2016 5:19 AM CDT [facility] BUN 17 7 - 21 mg/dL 10/30/2016 5:19 AM CDT [facility] Creatinine 0.91 0.50 - 1.30 mg/dL 10/30/2016 5:19 AM CDT [facility] Alkaline Phosphatase 166(H) 38 - 126 U/L 10/30/2016 5:19 AM CDT [facility] ALT 16 13 - 61 U/L 10/30/2016 5:19 AM CDT [facility] AST 14 5 - 40 U/L 10/30/2016 5:19 AM CDT [facility] Protein Total 5.5(L) 6.4 - 8.2 gm/dL 10/30/2016 5:19 AM CDT [facility] Albumin 2.4(L) 3.4 - 5.0 gm/dL 10/30/2016 5:19 AM CDT [facility] Bilirubin Total 0.3 0.2 - 1.0 mg/dL 10/30/2016 5:19 AM CDT [facility] eGFR by MDRD >60 >60 mL/min/1.7 3m2 10/30/2016 5:19 AM CDT [facility] eGFR by MDRD >60 >60 mL/min/1.7 3m2 10/30/2016 5:19 AM CDT [facility] Blood BLOOD SPECIMEN / Unknown Lab Venipuncture / Unknown 10/30/2016 4:35 AM CDT 10/30/2016 4:49 AM CDT Lauren Jessica MD LAB - CHEMISTRY ORD ERABLES [facility] [address] [place] [address] * OSMOLALITY BLOOD (10/30/2016 4:35 AM CDT) Osmolality 283 280 - 300 mOsm/kg 10/30/2016 5:06 AM CDT [facility] Blood BLOOD SPECIMEN / Unknown Lab Venipuncture / Unknown 10/30/2016 4:35 AM CDT 10/30/2016 4:49 AM CDT Lauren Jessica MD LAB - CHEMISTRY JOSSE DUBON Performing Organization Address City/[facility]/ZIP Co de Phone Number [facility] [address] [place] [address] * (ABNORMAL) BASIC METABOLIC PANEL (CALCIUM TOTAL) (10/28/2016 8:59 AM CDT) Only the most recent of6 resultswithin the time period is included. BUN 20 7 - 26 mg/dL [facility] Creatinine 0.9 0.6 - 1.2 mg/dL [facility] Sodium 134(L) 136 - 145 mmol/L [facility] Potassium 3.6 3.5 - 4.5 mmol/L [facility] Chloride 100 98 - 107 mmol/L [facility] CO2 24 22 - 29 mmol/L [facility] Glucose 100 70 - 115 mg/dL [facility] Calcium 9.0 8.4 - 10.2 mg/dL [facility] Anion Gap 14 8 - 18 [facility] BUN/Creatinine Ratio 22 7 - 23 [facility] Osmolality Calculated 281 270 - 300 mOsm/kg [facility] eGFR >60 >60 mL/min/1.7 3 m2 [facility] Blood specimen (specimen) BLOOD SPECIMEN / Unknown 10/28/2016 8:59 AM CDT 10/28/2016 9:05 AM CDT Tip Deras MD LAB - CHEMISTRY SALINAS SIMON Performing Organization Address City/[facility]/ZIP Co de Phone Number [facility] [address] [phone] * (ABNORMAL) DIFFERENTIAL MANUAL (10/26/2016 3:20 AM CDT) Only the most recent of3 resultswithin the time period is included. WBC (corrected for NRBC) 5.8 10 3/uL [facility] Total Cell Count 100 [facility] Neutrophils Absolute Manual 4.41 1.60 - 7.00 10 3/uL [facility] Comment:(BANDS+SEGS) x WBC = NEUT # (ANC) Lymphocyte Absolute Manual 0.52(L) 0.80 - 2.90 10 3/uL [facility] Monocytes Absolute Manual 0.70(H) 0.14 - 0.66 10 3/uL [facility] Eosinophils Absolute Manual 0.17 0.00 - 0.22 10 3/uL [facility] Band % Manual 2 0 - 10 % [facility] Neutrophil % Manual 74(H) 30 - 60 % [facility] Lymphocyte % Manual 9(L) 20 - 45 % [facility] Monocytes % Manual 12(H) 2 - 10 % [facility] Eosinophils % Manual 3 1 - 6 % [facility] Platelet Estimate Adequate Adequate [facility] RBC Morphology Normal [facility] Blood specimen (specimen) BLOOD SPECIMEN / Unknown 10/26/2016 3:20 AM CDT 10/26/2016 3:32 AM CDT Ying Mitchell MD LAB - HEMATOLOGY ORD ERABLES [address] [phone] * PHOSPHORUS BLOOD (10/24/2016 4:31 AM CDT) Phosphorus 2.8 2.3 - 4.7 mg/dL [facility] Blood specimen (specimen) BLOOD SPECIMEN / Unknown 10/24/2016 4:31 AM CDT 10/24/2016 4:50 AM CDT Joselyn Esocto COLLAR SETTER-CHEMICAL ENGINEERING INTERN LAB - CHEMISTRY ORDERABLES [address] [phone] * (ABNORMAL) MAGNESIUM BLOOD (10/24/2016 4:31 AM CDT) Magnesium 1.3(L) 1.6 - 2.6 mg/dL [facility] Blood specimen (specimen) BLOOD SPECIMEN / Unknown 10/24/2016 4:31 AM CDT 10/24/2016 4:50 AM CDT Joselyn Escoto COLLAR SETTER-CHEMICAL ENGINEERING INTERN LAB - CHEMISTRY ORDERABLES [facility] [address] [phone] * (ABNORMAL) DRUG ABUSE PANEL 10-20+ETHANOL URINE NO CONFIRM (10/23/2016 7:43 PM CDT) Amphetamines Screen Urine Negative Negative : < 1000 ng/mL [facility] Barbiturates Screen Urine Negative Negative : < 200 ng/mL [facility] Benzodiazepine Screen Urine Positive(A) Negative : < 200 ng/mL [facility] Comment: Positive urine benzodiazepine screening results should be confirmed by another generally accepted non-immunological method such as gas chromatography or mass spectrometry. Opiates Urine Negative Negative : < 300 ng/mL [facility] Cocaine Metabolites Urine Negative Negative : < 300 ng/mL [facility] Phencyclidine Screen Urine Negative Negative : < 25 ng/ml [facility] Cannabinoids Screen Urine Negative Negative : <50 ng/mL [facility] Methadone Screen Urine Negative Negative : < 300 ng/mL [facility] Urine specimen (specimen) 10/23/2016 7:43 PM CDT 10/23/2016 7:46 PM CDT Narrative [facility] - 10/23/2016 8:01 PM CDT The Urine Toxicology Screening Panel does not screen for Propoxyphene, Meprobamate, Carisoprodol, Trazodone, kqko-nsu-klluwjc medications and/or volatiles (Acetone, Isopropanol, Methanol or Ethylene Glycol). Ethanol, Salicylate, Acetaminophen, Tricyclic Antidepressants and several therapeutic drugs may be individually assayed in serum or plasma specimen. Toxicology testing by the [facility] is an aid to medical diagnosis and treatment of patients. No documented chain of custody was maintained. Results are intended to be used for clinical purposes only. Tip Deras MD LAB - URINE CHEMISTR Y ORDERABLES [facility] [address] [phone] * XR ELBOW LEFT 3VW OR MORE (10/23/2016 7:36 PM CDT) Anatomical Region Laterality Modality Upper Extremity Other Impressions 10/24/2016 11:37 AM CDT IMPRESSION: Comminuted and displaced fracture at the distal right humeral metaphysis with 6 mm anterior displacement and posterior apex angulation. Dictated by Opal Pichardo MD (care program resident). I, Dr. LAURA FISHER M.D. have personally [...] apex angulation. Dictated by Opal Pichardo MD (care program resident). Dr. LAURA Pabon M.D. have personally reviewed [...] apex angulation. Dictated by Opal Pichardo MD (care program resident). Dr. LAURA Pabon M.D. have personally reviewed [...] apex angulation. Dictated by Opal Pichardo MD (care program resident). Dr. LAURA Pabon M.D. have personally reviewed [...] apex angulation. Dictated by Opal Pichardo MD (care program resident). Dr. LAURA Pabon M.D. have personally reviewed [...] apex angulation. Dictated by Opal Pichardo MD (care program resident). Dr. LAURA Pabon M.D. have personally reviewed [...] fracture identified. Dictated by Isaura Alvarez MD (care program resident). Dr. LAURA Pabon M.D. have personally reviewed [...] fracture identified. Dictated by Isaura Alvarez MD (care program resident). Dr. LAURA Pabon M.D. have personally reviewed [...] humeral fracture. Dictated by Isaura Alvarez MD (care program resident). Dr. LAURA Pabon M.D. have personally reviewed [...] humeral fracture. Dictated by Isaura Alvarez MD (care program resident). Dr. LAURA Pabon M.D. have personally reviewed [...] height loss. Dictated by Polo Roldan DO (care program resident). Dr. Rodney Pabon M.D. have personally reviewed [...] a prior abdominal and pelvic CT from [facility] performed earlier the same day. FINDINGS: Evaluation [...] aspects of T12 and superior endplate of [id number] retropulsion or significant height loss. Multilevel degenerativechanges are seen throughout the thoracic and lumbar spine. 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 Chronic fractures are seen in the left pubic rami. IMPRESSION IMPRESSION: 1. Left lower lobe scarring with superimposed consolidation. Recommendfollow up to resolution. 2. Nonretropulsed fractures of the T12 and superior endplate of [id number] bodies without significant height loss. Dictated by Polo Roldan DO (care program resident). I, Dr. Rodney BRUNO M.D. have personally [...] M.D. on 10/24/2016 9:[address] KADEI Pabon M.D. have personally reviewed and interpreted [...] spine. A preliminary report was entered into [employer] by Dr. Hoffman on 2016 at 8:40 [...] spine. A preliminary report was entered into [employer] by Dr. Hoffman on 2016 at 8:40 [...] chest CT. Dictated by Isaura Alvarez MD (care program resident). Dr. LAURA Pabon M.D. have personally reviewed [...] chest CT. Dictated by Isaura Alvarez MD (care program resident). Dr. LAURA Pabon M.D. have personally reviewed and interpreted thisexamination/study. This report was electronically signed by LAURA FISHER M.D. on10/24/2016 11:24 AM . Tip Deras MD DIAGNOSTIC IMAGING O RDERABLES * PTT [facility] (10/23/2016 6:42 PM CDT) APTT 27.8 23.0 - 38.4 Seconds [facility] Comment:Suggested therapeuti c range for full dose I.V. heparin therapy for venous thromboembolism is 66.0-91.0 seconds. Blood specimen (specimen) BLOOD SPECIMEN / Unknown 10/23/2016 6:42 PM CDT 10/23/2016 6:42 PM CDT Narrative [facility] - 10/23/2016 7:01 PM CDT Is patient on Heparin, Argatroban or Dabigatran?->N Tip Deras MD LAB - COAGULATION OR DERABLES [address] [phone] * PT-INR [facility] (10/23/2016 6:42 PM CDT) [facility] PT 13.1 12.1 - 14.8 Seconds [facility] INR 1.0 See Comment [facility] Comment: Suggested therapeutic range for low-intensity coumadin therapy for venous thromboembolism prophylaxis is an INR of 2.0-3.0. For high risk patients (Mitral Valve Prosthesis, Atrial Fibrillation, history of TIA/stroke), suggested prophylactic therapeutic range is an INR of 2.5-3.5. Blood specimen (specimen) BLOOD SPECIMEN / Unknown 10/23/2016 6:42 PM CDT 10/23/2016 6:42 PM CDT Narrative [facility] - 10/23/2016 7:00 PM CDT Is patient on Heparin, Argatroban or Dabigatran?->N Tip Deras MD LAB - COAGULATION OR DERABLES [address] [phone] * (ABNORMAL) HEPATIC FUNCTION PANEL (10/23/2016 6:42 PM CDT) Protein Total 5.4(L) 6.0 - 8.3 g/dL [facility] Albumin 2.8(L) 3.4 - 5.0 g/dL [facility] Bilirubin Total 0.3 0.2 - 1.2 mg/dL [facility] Bilirubin Conjugated 0.1 0.0 - 0.5 mg/dL [facility] Bilirubin Unconjugated 0.2 Unconjugated Bilirubin is a calculated value: Reference ranges have not been established. mg/dL [facility] Alkaline Phosphatase 197(H) 40 - 150 Units/L [facility] ALT 22 0 - 55 Units/L [facility] AST 29 5 - 34 Units/L [facility] Albumin/Globulin Ratio 1.1 1.1 - 2.3 [facility] Blood specimen (specimen) BLOOD SPECIMEN / Unknown 10/23/2016 6:42 PM CDT 10/23/2016 6:42 PM CDT Tip Deras MD LAB - CHEMISTRY ORDTroy SIMON Performing Organization Address City/[facility] Co de Phone Number [address] [phone] * LIPASE BLOOD (10/23/2016 6:42 PM CDT) Lipase 29 8 - 78 Units/L [facility] Blood specimen (specimen) BLOOD SPECIMEN / Unknown 10/23/2016 6:42 PM CDT 10/23/2016 6:42 PM CDT Tip Deras MD LAB - CHEMISTRY SALINAS SIMON Performing Organization Address City/[facility]/ZIP Co de Phone Number [address] [phone] * AMYLASE BLOOD (10/23/2016 6:42 PM CDT) Amylase 39 25 - 125 Units/L [facility] Blood specimen (specimen) BLOOD SPECIMEN / Unknown 10/23/2016 6:42 PM CDT 10/23/2016 6:42 PM CDT Tip Deras MD LAB - CHEMISTRY SALINAS SIMON [facility] [address] [phone] * CROSSMATCH RBC LEUKOREDUCED (10/23/2016 6:38 PM CDT) 10/23/2016 6:38 PM CDT 10/23/2016 6:49 PM CDT Markus Ureña MD LAB - BLOOD BANK ORDERABLES Performing Organization Address [facility]/ZIP Co de Phone Number [facility] [address] * TYPE + SCREEN PANEL (10/23/2016 6:38 PM CDT) Typem O POS [facility] Antibody Screen NEG [facility] Blood specimen (specimen) 10/23/2016 6:38 PM CDT 10/23/2016 6:47 PM CDT Jaydon Mayer MD LAB - BLOOD BANK O RDERABLES Performing Organization Address City/[facility] Co de Phone Number [facility] [address] * (ABNORMAL) CULTURE URINE (10/27/2013 12:09 PM CDT) Culture Urine ESCHERICHIA COLI(A) [facility] Comment:10,000 CFU/ML Escher ichia Coli Urine specimen (specimen) URINE SPECIMEN OBTAINED BY CLEAN CATCH PROCEDURE / Unknown 10/27/2013 12:09 PM CDT 10/27/2013 2:53 PM CDT Narrative [facility] - 10/30/2013 4:01 PM CDT AndersonSpecimen#[id number] Gomez Loc/Rm/Bed: LAB// CLN CATCH U @10/27/13 [...] Historical Provider LAB - MICROBIOLOG Y ORDERABLES [address] [phone] Care Teams Inserting Operator Relationship Specialty Start Date End [place] [id number] PCP - General Internal Medicine 10/29/16
--- OUTSIDE RECORDS SUMMARY | 2024-04-25 16:07 | XMS_ITS | Continuity of Care Document ---
Author Organization [facility] Address [address] [place] [address] Phone Care Team Providers Care Radioisotope Technologist Name Role Phone Shantel Judy CHARL[place] Unavailable Unavaila ble Allergies, Adverse Reactions, Alerts Substance Reaction Status Criticality nickel Active No Information gabapentin Active No Information DYE Active No Information cimetidine Active No Information Medications Medication Instructions Dosage Effective Dates (start - stop) Status Comments oxycodone-acetaminophen 5 mg-325 mg tablet - Active dextroamphetamine-amphe tamine ER 30 mg 24hr capsule,extend release - Active carvedilol 25 mg tablet - Ac tive escitalopram 20 mg tablet - Active OMEPRAZOLE (unknown strength) Not Available - Active ROPINIROLE HCL (unknown strength) Not Available - Active ASPIRIN (unknown strength) Not Available - Active Procedures Procedure Date X-RAY HIP UNI W PELVIS 2-3 VIEWS 2020 OFFICE/OUTPATIENT VISIT EST X-RAY HIP UNI W PELVIS 2-3 VIEWS 2020 OFFICE/OUTPATIENT VISIT EST X-RAY EXAM OF FEMUR 2/> RADEX PELVIS 1/2 VIEWS POSTOP FOLLOW-UP VISIT RADEX PELVIS 1/2 VIEWS POSTOP FOLLOW-UP VISIT X-RAY EXAM OF FEMUR 2/> RADEX SPI LUMBOSAC 2/3 VIEWS OFFICE/OUTPATIENT VISIT EST RADEX SPI LUMBOSAC 2/3 VIEWS OFFICE/OUTPATIENT VISIT NEW Advance Directives Directive Yes / No Effective Date File Name No Information Encounters Encounter Description Practice Location Reason(s) For Visit Diagnoses Date Provider Providers Copied on Encounter OFFICE/OUTPA TIENT VISIT EST [facility], [address] [address], [place], [address], [place] tel:[phone] [facility] Periprosthetic fracture around other internal prosthetic joint, subsequent encounterS/P ORIF (open reduction internal fixation) fracture 1 Shantel Kim. [address] [facility] [address], [place], [address]. tel:[phone] OFFICE/OUTPA TIENT VISIT EST [facility], [address] [address], [place], [address], [place] tel:[phone] [facility] Periprosthetic fracture around other internal prosthetic joint, subsequent encounterS/P ORIF (open reduction internal fixation) fracture 1 L'Hommedi eu Seward. [address] [facility], [place], [place], [id number] . tel:[phone] [facility], [address] [address], [place], [address], [place] tel:[phone] [facility] Body mass index [BMI] 37.0-37.9, adultPeriprosthe tic fracture around other internal prosthetic joint, subsequent encounter 1 L'Hommedi eu [place]. [address] [facility], [place], [place], [id number] . tel:[phone] Referring Provider: Jorge Park [address] [place] [address] [address], [place], [address]. tel:[phone] [facility], [address] [address], [place], [address], [place] tel:[phone] [facility] Periprosthetic fracture of shaft of femurS/P ORIF (open reduction internal fixation) fractureBody mass index [BMI] 39.0-39.9, adult 1 Shantel Kim. [address] [facility] [address], [place], [address]. tel: [phone] [facility], [address] [facility] [address] [address], [place], [address], [place] tel:[phone] [facility] Periprosthetic fracture of shaft of femurPresence of unspecified artificial hip joint 1 L'Hommedi swati Barbosa. [address] [facility] [address] , [place], [place], [id number] . tel: [phone] OFFICE/OUTPA TIENT VISIT EST [facility], [address] [facility] [address] [address], [place], [address], [place] tel:[phone] [facility] My buttock still hurts alot (chief complaint) Closed fracture of sacrum with routine healing, unspecified portion of sacrum, subsequent encounterBody mass index (BMI) 31.0-31.9, adultOsteoporosi s 6 Jennifer Cohen. [address] [facility] [address] [place], [place], [id number] . tel: [phone] OFFICE/OUTPA TIENT VISIT NEW [facility], [address] [facility] [address] [address], [place], [address], [place] tel:[phone] [facility] I am hurting alot (chief complaint) Body mass index (BMI) 31.0-31.9, adultLow back painClosed compression fracture of sacrum, initial encounter 0 6 Jennifer Cohen. [address] [facility] [place], [address] . tel: [phone] Referring Provider: Stephen Dos Santos, [address], [place], [address]. tel:[phone] Family History Family Member Type Diagnosis Age At Onset Brother Problem (finding) cancer Father Problem (finding) heart disease Brother Problem (finding) heart disease Mother Problem (finding) malignant neoplasm of l kevin Payers Payer name Insurance type Covered constitution party ID Authoriza tion(s) Medicare E2 OT [id number] [facility] [employer] [place] [id number] Social History Type Description Quantity Date Captured Comments Alcohol Use Details Unknown Caffeine Use Details Unknown Tobacco Use Status No Information Smoking Status No Information Sex Female Chief Complaint And Reason For Visit No Information Reason For Referral Reason For Referral No Information Plan Of Treatment Date Type Action Status Goal Lifestyle education regardin g diet completed Referral Ordered: X-RAY HIP UNI W PELVIS 2-3 VIEWS LT ordered Referral Ordered: RADEX PELVIS 1/2 VIEWS ordered Referral Ordered: X-RAY EXAM OF FEMUR 2/> LT ordered Referral Ordered: RADEX SPI LUMBOSAC 2/3 VIEWS ordered History Of Present Illness Encounter Date Complaint History Of Prese nt Illness My buttock still hurts alot I am hurting alot Functional Status Date Functional Assessmen t No Information Instructions Date Instruction Additional Infor mation Inform physician of any changes in symptoms or pain. Related to S/P ORIF (open reduction internal fixation) fracture Giving encouragement to exercise Related to Body mass index [BMI] 37.0-37.9, adult Lifestyle education regarding di et Related to Body mass index [BMI] 39.0-39.9, adult Dietary needs education Related to Body mass index (BMI) 31.0-31.9, adult Dietary needs education Related to Body mass index (BMI) 31.0-31.9, adult Assessments Type Assessment Date assessment Periprosthetic fract ure around other internal prosthetic joint, subsequent encounter assessment S/P ORIF (open reduction interna l fixation) fracture Patient Care Teams Name Effective Dates (start - stop) Status Members No Information
--- OUTSIDE RECORDS SUMMARY | 2024-04-25 16:07 | XMS_ITS | Referral Summary ---
Author Organization [facility] Address [address] [facility] [place] [address] Care Team Providers Care Press Clipper Name Role Phone Stephen Michael MD Primary Care Provider [phone] Source Comments [facility],non-owned Affiliates and Associated Physician Practices is amultiple site organization consisting of ambulatory clinics and hospital sitesin [place], [place], [place] and [place]. This disclosure is being madepursuant to the Care Everywhere program and may not contain all information available regarding this patient. Last updated 17.[facility] Dada Allergies Active Allergy Reactions Criticality Noted Date [...] COMPREHENSIVE METABOLIC PANEL (10/30/2016 4:35 AM CDT) [facility] Glucose 107(H) 74 - 106 mg/dL 10/30/2016 5:19 AM CDT [facility] Sodium 137 136 - 145 mmol/L 10/30/2016 5:19 AM CDT [facility] Potassium 4.0 3.5 - 5.1 mmol/L 10/30/2016 5:19 AM CDT [facility] Chloride 105 98 - 107 mmol/L 10/30/2016 5:19 AM CDT [facility] CO2 24 22 - 31 mmol/L 10/30/2016 5:19 AM CDT [facility] Calcium 8.6 8.5 - 10.1 mg/dL 10/30/2016 5:19 AM CDT [facility] Anion Gap 8 8 - 16 mmol/L 10/30/2016 5:19 AM CDT [facility] BUN 17 7 - 21 mg/dL 10/30/2016 5:19 AM CDT [facility] Creatinine 0.91 0.50 - 1.30 mg/dL 10/30/2016 5:19 AM CDT [facility] Alkaline Phosphatase 166(H) 38 - 126 U/L 10/30/2016 5:19 AM CDT [facility] ALT 16 13 - 61 U/L 10/30/2016 5:19 AM CDT [facility] AST 14 5 - 40 U/L 10/30/2016 5:19 AM CDT [facility] Protein Total 5.5(L) 6.4 - 8.2 gm/dL 10/30/2016 5:19 AM CDT [facility] Albumin 2.4(L) 3.4 - 5.0 gm/dL 10/30/2016 5:19 AM CDT [facility] Bilirubin Total 0.3 0.2 - 1.0 mg/dL 10/30/2016 5:19 AM CDT [facility] eGFR by MDRD >60 >60 mL/min/1.7 3m2 10/30/2016 5:19 AM CDT [facility] eGFR by MDRD >60 >60 mL/min/1.7 3m2 10/30/2016 5:19 AM CDT [facility] Blood BLOOD SPECIMEN / Unknown Lab Venipuncture / Unknown 10/30/2016 4:35 AM CDT 10/30/2016 4:49 AM CDT Lauren Jessica MD LAB - CHEMISTRY ORD ERABLES [facility] [address] [place] [address] from Last 3 Months or Most Recently Relevant to Health Maintenance Advance Directives * Full Code (Latest Code Status on File) Date Activated Date Inactivated Comments 10/29/2016 4:11 PM 11/03/2016 5:09 PM Care Teams Press Clipper Relationship Specialty Start Date End Date Stephen Michael MD [address] [place] [address] PCP - General Internal Medicine 10/29/16
[2024-04-25 17:09] LABS: Vitamin D 25 Hydroxy 51.3 ng/mL
== END 2024-04-25 13:33 | disposition home or self-care (01) ==
PROVIDERS: PCP Nurse Practitioner Family; Visit Provider Nurse Practitioner Family
DX: E11.22 Type 2 diabetes mellitus with diabetic chronic kidney disease (principal); N18.1 Chronic kidney disease, stage 1; E78.2 Mixed hyperlipidemia; E05.90 Thyrotoxicosis, unspecified without thyrotoxic crisis or storm; G43.009 Migraine without aura, not intractable, without status migrainosus; R39.9 Unspecified symptoms and signs involving the genitourinary system; E66.01 Morbid (severe) obesity due to excess calories; Z98.890 Other specified postprocedural states
CPT/HCPCS: 36415; 80053; 81001; 82306; 82607; 82746; 83036; 83540; 83550; 83735; 84100; 84207; 84252; 84425; 84439; 84443; 87086; 87186

== ENCOUNTER 2024-05-31 09:16 | Outpatient (CLI) | payer MEDICARE, OTHER, SELFPAY ==
--- OUTSIDE RECORDS SUMMARY | 2024-05-31 10:12 | XMS_ITS | Referral Summary ---
Author Organization [facility] Address [address] [place] [address] Phone Care Team Providers Care Weight Guesser Name Role Phone Roberta Cuellar HEAD GIRLS GOLF COACH Unavailable [phone] Howie Biggs NP Primary Care Provider [...] mg total) by mouth daily 4 Active carvediloL (COREG) 25 mg tabletIndications :Hypertension associated with diabetes (HCC),Elevated left ventricular end-diastolic pressure TAKE 1 TABLET BY MOUTH TWICE A DAY WITH FOOD 180 tablet 1 5 Active isosorbide mononitrate ER (IMDUR) 30 mg 24 hr tabletIndications :Pulmonary hypertension (HCC),MOSS (dyspnea on exertion) TAKE 1 TABLET BY MOUTH EVERY DAY 90 tablet 1 5 Active Active Problems Problem [...] on file Legal Sex Female 2:30 PM HYDRAULIC AUTO JACK MECHANIC Gender Identity Female 10/16/2021 2:52 PM CDT [...] POCT LIPID PANEL Routine 12/29/2022 3:54 PM HYDRAULIC AUTO JACK MECHANIC Lipid screening from Last 3 Months or Most Recently Relevant to Health Maintenance Results * POCT lipid panel (12/29/2022 3:54 PM HYDRAULIC AUTO JACK MECHANIC) Cholesterol, POC 155 mg/dL HDL, POC 53 mg/dL Triglycerides, POC 182 mg/dL LDL Cholesterol POC 65 mg/dL Chol/HDL Ratio, POC 2.9 Non-HDL Cholesterol, POC 102 mg/dL Cholesterol Total, POC 155 mg/dL Capillary blood 12/29/2022 3 :54 PM HYDRAULIC AUTO JACK MECHANIC Anat Pace NP POINT OF CARE TEST ORDERA BLES Final Result from Last 3 Months or Most Recently Relevant to Health Maintenance [place] [address] [facility] [place] [address] MEDICARE [facility] [place] [address] MEDICARE [facility] Care Teams Weight Guesser Relationship Specialty Start Date End Date Howie Biggs NP [address] [address] PCP - General Nurse Practitioner 12/29/22 Roberta Cuellar NP [address] [place] [address] Nurse Practitioner Medical Oncology 05/19/22
--- OUTSIDE RECORDS SUMMARY | 2024-05-31 10:12 | XMS_ITS | Clinical Summary ---
Author Organization [facility] Address [address] [place] [address] Phone Care Team Providers Care Commercial Green Retrofit Architect Name Role Phone Stephen Michael MD Primary Care Provider + Allergies Active Allergy Reactions Criticality Noted Date Comments Cimetidine Hcl Rash Low 06/21/2018 D And C Hoke No. 4 Nausea and Vomiting Low 2018 [...] Comments Blood Pressure 128/71 04/11/2020 3:30 PM COMPUTER TECHNOLOGY TRAINER Pulse 99 04/11/2020 3:30 PM COMPUTER TECHNOLOGY TRAINER Temperature 36.7 C (98.1 F) 04/11/2020 3:30 PM COMPUTER TECHNOLOGY TRAINER Respiratory Rate 18 04/11/2020 3:30 PM COMPUTER TECHNOLOGY TRAINER Oxygen Saturation 100% 04/11/2020 3:30 PM COMPUTER TECHNOLOGY TRAINER Inhaled Oxygen Concentration - - Weight 91.2 kg (201 lb) 04/02/2020 12:22 PM COMPUTER TECHNOLOGY TRAINER Height 154.9 cm (5' 1 ) 03/30/2020 11:34 AM COMPUTER TECHNOLOGY TRAINER Body Mass Index 37.98 03/30/2020 11:34 AM COMPUTER TECHNOLOGY TRAINER Plan of Treatment Health Maintenance Due Date Last Done Comments DIABETES ANNUAL FOOT EXAM 02/27/1978 DIABETES ANNUAL RETINAL EXAM 02/27/1978 DIABETES HBA1C Q 6 MONTHS 02/27/1978 DIABETES MICROALBUMIN ANNUAL SCREEN 02/27/1978 LDL CHOLESTEROL ANNUAL 02/27/1978 DTAP/TDAP/TD VACCINES (1 - Tdap) 02/27/1979 HPV/Cotest (21-29) 02/27/1981 CERVICAL CANCER SCREENING 02/27/1990 HPV/Cotest (30-65) 02/27/1990 PAP SMEAR 02/27/1990 BREAST CANCER SCREENING 2000 COLORECTAL SCREENING 02/27/2005 Colorectal Cancer Screening 02/27/2005 FIT-DNA Q 3 years 02/27/2005 FIT/FOBT Q 1 year 02/27/2005 Flex Sig/CT Colonography Q 5 years 02/27/2005 ZOSTER VACCINE (1 of 2) 02/27/2010 INFLUENZA VACCINE (#1) 2023 11/11/2018, 2016 RSV VACCINE (60+ or ) (1 - 1-dose 75+ series) 02/27/2035 Medical Devices Implanted Type Area Infectious Disease Physician Device Identifier Shelf Expiration Date Model / Serial / Lot Cable Assembly Ss 1.8 X 559mm -18 - [id number] Implanted:Qty: 4 on 04/02/2020 by Familia Michelle MD at [facility] Left: Femur [employer]USHKA [employer] 03/11/2026-18 / / [id number] Cable Assembly Ss 1.8 X 559mm - - [id number] Implanted:Qty: 1 on 04/02/2020 by Familia Michelle MD at [facility] Left: Femur [employer] 03/11/202428-9322-406- / / [id number] Distal Lateral Femoral Locking Plate 18h Lt Implanted:Qty: 1 on 04/02/2020 by Familia Michelle MD at [facility] Plate Left: Femur [employer] [id number] / 10/01/2019 [id number] Description:Entered by OKSANA 1x Add [id number] Angie Locking Screw 4.5mm X 46mm Implanted:Qty: 1 on 04/02/2020 by Familia Michelle MD at [facility] Screw Left: Femur [employer] [id number] / 10/01/2019 4075 Description:Entered by OKSANA 1x Add Screw Angie Loc 5.5x70mm [id number] - [id number] Implanted:Qty: 2 on 04/02/2020 by Familia Michelle MD at [facility] Screw Left: Femur [employer] [id number] / / Description:Load # [id number] Sterilized 10/25/2019 Screw Angie Loc 5.5x80mm [id number] - [id number] Implanted:Qty: 1 on 04/02/2020 by Familia Michelle MD at [facility] Screw Left: Femur [employer] [id number] / / Description:Load # [id number] Sterilized 10/25/2019 Screw Angie Loc 4.5x38mm [id number] - [id number] Implanted:Qty: 1 on 04/02/2020 by Familia Michelle MD at [facility] Screw Left: Femur [employer] [id number] / / Description:Load # [id number] Sterilized 10/25/2019 Screw Angie Loc 4.5x45mm [id number] - [id number] Implanted:Qty: 1 on 04/02/2020 by Familia Michelle MD at [facility] Left: Femur [employer] [id number] / / Description:Load # [id number] Sterilized 10/25/2019 Angie Cannulated Locking Screw 5.5mm X 75mm Implanted:Qty: 2 on 04/02/2020 by Familia Michelle MD at [facility] Screw Left: Femur [employer] [id number] / 10-25-2019 / [id number] Description:Entered by OKSANA 1x Add Button Cable-Ready Proofer 2.5mm Hex 5.5mm Angie/Prox [id number] - [id number] Implanted:Qty: 4 on 04/02/2020 by Familia Michelle MD at [facility] Left: Femur [employer] 02/08/2029 [id number] / / [id number] Description:[id number] Button Cable-Ready Proofer 2.5mm Hex 5.5mm Angie/Prox [id number] - [id number] Implanted:Qty: 1 on 04/02/2020 by Familia Michelle MD at [facility] Left: Femur [employer] 02/08/2029 [id number] / / [id number] Left Hip Left Knee Right Hip Right Knee Insurance MEDICARE PART A AND B [facility] RX Pretty Simple Medicare Part D MEDICARE PART A AND B Advance Directives For more information, please contact: [phone] * Full Code (Latest Code Status on File) Date Activated Date Inactivated Comments 03/30/2020 2:18 PM 04/11/2020 6:38 PM * Full Code Date Activated Date Inactivated Comments 06/22/2018 7:19 PM 06/23/2018 9:18 PM Care Teams Commercial Green Retrofit Architect Relationship Specialty Start Date End Date Stephen Michael MD [address] [place] [address] PCP - General Internal Medicine 06/23/18
--- OUTSIDE RECORDS SUMMARY | 2024-05-31 10:12 | XMS_ITS | Clinical Summary ---
Author Organization [facility] Address [address] [place] [address] Phone Care Team Providers Care Heel Seat Sander Name Role Phone Roberta Cuellar SENIOR C SOFTWARE DEVELOPER Unavailable [phone] Howie Biggs NP Primary Care Provider [phone] Allergies Active Allergy Reactions Criticality Noted Date [...] on file Legal Sex Female 2:30 PM CORRESPONDENCE RENEW CLERK Gender Identity Female 10/16/2021 2:52 PM CDT [...] POCT LIPID PANEL Routine 12/29/2022 3:54 PM CORRESPONDENCE RENEW CLERK Lipid screening from Last 3 Months or Most Recently Relevant to Health Maintenance Results * POCT lipid panel (12/29/2022 3:54 PM CORRESPONDENCE RENEW CLERK) Cholesterol, POC 155 mg/dL HDL, POC 53 mg/dL Triglycerides, POC 182 mg/dL LDL Cholesterol POC 65 mg/dL Chol/HDL Ratio, POC 2.9 Non-HDL Cholesterol, POC 102 mg/dL Cholesterol Total, POC 155 mg/dL Capillary blood 12/29/2022 3 :54 PM CORRESPONDENCE RENEW CLERK Anat Pace NP POINT OF CARE TEST ORDERA BLES Final Result from Last 3 Months or Most Recently Relevant to Health Maintenance Insurance MEDICARE [facility] MEDICARE [facility] MEDICARE [facility] Care Teams Heel Seat Sander Relationship Specialty Start Date End Date Howie Biggs NP [address] [place] [address] PCP - General Nurse Practitioner 12/29/22 Roberta Cuellar NP [address] [place] [address] Nurse Practitioner Medical Oncology 05/19/22
--- OUTSIDE RECORDS SUMMARY | 2024-05-31 10:12 | XMS_ITS | Encounter Summary ---
Author Organization [facility] Address [address] [place] [address] Care Team Providers Care Plant Engineer Name Role Phone Stephen Michael MD Primary Care Provider + Reason for Visit * Reason Onset Date Comments Recurring hyperkalemia 04/03/2020 Gave mess age to dr. Mendoza on cell phone Encounter Details Date Type Department Care Team (Late st Contact Info) Description 04/03/2020 Telephone [facility] Admitting [address] [place] [address] Mitch Feliciano MD [address] [place] [address] Recurring hyperkalemia (Gave message to [...] COVID-19? No / Unsure 03/30/2020 11:37 AM ASSISTANT MANAGER RETAIL documented as of this encounter Functional Status documented as of this encounter Plan of Treatment Not on file documented as of this encounter Visit Diagnoses Not on filedocumented in this encounter Care Teams Plant Engineer Relationship Specialty Start Date End Date Stephen Michael MD [address] [place] [address] PCP - General Internal Medicine 06/23/18 documented as of this encounter
--- OUTSIDE RECORDS SUMMARY | 2024-05-31 10:12 | XMS_ITS | Clinical Summary ---
Author Organization [facility] Address [facility] [facility] [place] [address] Phone Care Team Providers Care Neighborhood Aide Name Role Phone Unavailable Primary Care Provider [...]
--- OUTSIDE RECORDS SUMMARY | 2024-05-31 10:12 | XMS_ITS | Clinical Summary ---
Author Organization [facility] Address [address] [facility] [place] [address] Care Team Providers Care Engraver Rubber Name Role Phone Stephen Michael MD Primary Care Provider [phone] Source Comments [facility],non-owned Affiliates and Associated Physician Practices is amultiple site organization consisting of ambulatory clinics and hospital sitesin [place], [place], [place] and [place]. This disclosure is being madepursuant to the Care Everywhere program and may not contain all information available regarding this patient. Last updated 17.[facility] Allergies Active Allergy Reactions Criticality Noted Date Comments Tagamet Rash Medium 08/27/2017 Medications * Be aware that medications may not be up to date on this document. Alwaysverify current medications with the patient. metFORMIN (GLUCOPHAGE) 500 MG tablet 8 Active ADDERALL XR 25 MG capsule TAKE 1 CAPSULE BY MOUTH EVERY DAY IN THE MORNING UPON AWAKENING 0 8 Active busPIRone (BUSPAR) 15 MG tablet Take 15 mg by mouth 3 times daily 1 8 Active citalopram (CELEXA) 40 MG tablet 8 Active cyclobenzaprine (FLEXERIL) 10 MG tablet TAKE 1 TABLET BY MOUTH THREE TIMES A DAY NEEDED 0 8 Active esomeprazole (NEXIUM) 40 MG capsule 8 Active HYDROcodone-franklin taminophen (NORCO) 7.5-325 MG tablet TAKE 1 TABLET BY MOUTH 3 TIMES A DAY 8 Active lisinopril (PRINIVIL;ZESTR IL) 5 MG tablet Take 5 mg by mouth 8 Active rOPINIRole (REQUIP) 0.25 MG tablet Take 0.5 mg by mouth Active naproxen (NAPROSYN) 500 MG tablet TAKE 1 TABLET BY ORAL ROUTE 2 TIMES EVERY DAY WITH FOOD 8 Active topiramate (TOPAMAX) 50 MG tablet Take 150 mg by mouth 7 Active topiramate (TOPAMAX) 100 MG tablet Take 100 mg by mouth 8 Active pravastatin (PRAVACHOL) 20 MG tablet Take 20 mg by mouth Active gabapentin (NEURONTIN) 300 MG capsule Take 300 mg by mouth 7 Active Active Problems No known active problems Social History Tobacco Use Types Packs/Day Years Used Date Smoking Tobacco: Never Smokeless Tobacco: Never Alcohol Use Standard Drinks/Week Comments No 0 (1 standard drink = 0.6 oz pur e alcohol) Comments No Sex and Gender Information Value Date Recorded Sex Assigned at Not on file Legal Sex Female 6:43 AM MICROSOFT DYNAMICS AX DEVELOPER Gender Identity Not on file Sexual Orientation [...] - COLON CA SCREENING 1960 MAMMOGRAM 1960 HIV SCREENING 02/27/1975 HEPATITIS C SCREENING 02/23/1978 DTAP/TDAP/TD VACCINES (1 - Tdap) 02/27/1979 PNEUMOCOCCAL VACCINE 50+ (1 of 1 - PCV) 02/27/2010 ZOSTER VACCINE (1 of 2) 02/27/2010 SCREENING FOR DIABETES 10/31/2019 7, 10/28/2016, 10/26/2016, Additional history exists COVID-19 VACCINE ( - 2023- season) 2023 DEPRESSION SCREENING 02/10/2024 INFLUENZA VACCINE (Season Ended) 2024 Respiratory Syncytial Virus (RSV) Vaccine Pt: or [...] COMPREHENSIVE METABOLIC PANEL (10/30/2016 4:35 AM CDT) Glucose 107(H) 74 - 106 mg/dL 10/30/2016 5:19 AM CDT [facility] Sodium 137 136 - 145 mmol/L 10/30/2016 5:19 AM CDT [facility] Potassium 4.0 3.5 - 5.1 mmol/L 10/30/2016 5:19 AM CDT [facility] Chloride 105 98 - 107 mmol/L 10/30/2016 5:19 AM CDT [facility] CO2 24 22 - 31 mmol/L 10/30/2016 5:19 AM CDT [facility] Calcium 8.6 8.5 - 10.1 mg/dL [...] >60 mL/min/1.7 3m2 10/30/2016 5:19 AM CDT [facility] Blood BLOOD SPECIMEN / Unknown Lab Venipuncture / Unknown 10/30/2016 4:35 AM CDT 10/30/2016 4:49 AM CDT us Lauren Jessica MD LAB - CHEMISTRY ORDERABLES Final Result [facility] [address] [place] [address] from Last 3 Months or Most Recently Relevant to Health Maintenance Insurance [employer] MEDICARE [facility] MEDICARE Advance Directives * Full Code (Latest Code Status on File) Date Activated Date Inactivated Comments 10/29/2016 4:11 PM 11/03/2016 5:09 PM Care Teams Engraver Rubber Relationship Specialty Start Date End Date Stephen Michael MD [address] [place] [address] PCP - General Internal Medicine 10/29/16
--- OUTSIDE RECORDS SUMMARY | 2024-05-31 10:12 | XMS_ITS | Encounter Summary ---
Author Organization [facility] Address [address] [place] [address] Care Team Providers Care Hand Welt Butter Name Role Phone Stephen Michael MD Primary Care Provider + Reason for Visit * Reason Onset Date Comments Irregular Heart Beat 04/06/2020 JANEE AT [place] PRABHAKAR EX Encounter Details Date Type Department Care Team (Late st Contact Info) Description 04/06/2020 Telephone [facility] Admitting [address] [place] [address] [place] [id number] [address] Irregular Heart Beat (JANEE AT [...] COVID-19? No / Unsure 03/30/2020 11:37 AM CHISEL GRINDER documented as of this encounter Plan of Treatment Not on file documented as of this encounter Visit Diagnoses Not on filedocumented in this encounter Care Teams Hand Welt Butter Relationship Specialty Start Date End Date Stephen Michael MD [address] [place] [address] PCP - General Internal Medicine 06/23/18 documented as of this encounter
--- NOTE | 2024-06-08 19:50 | WPDHOMESLEEP ---
Sleep Study - Home Unattended Date of Study: 05/31/24 Ordering Provider: Anju Gracia APRN Interpreting Provider: mEely Hough MD Home Sleep Study Type: Watch PAT Height: 1.57 m Weight: 86.183 kg Body Mass Index: 34.7 Neck Circumference (inches): 15.5 [place]: 12 Reason for Sleep Study Hypersomnolence Sleep History Regina Woodruff is a 64-year-old female who has difficulty with sleep. She is a [id number] grandmother. She has constant pain in her back and in her right shoulder. She has difficulty getting to sleep and staying asleep. She is excessively sleepy during the day. She has used sleeping pills. She rarely awakens from sleep feeling short of breath but she does constantly awaken at night with heartburn, belching or coughing. She rarely snores. She never snores loudly enough that others complain. She occasionally has difficulty sleeping when she has a cold. She does not wake up gasping for breath at night. She does not have breathing problems at night reported to her by others. She frequently sweats excessively at night. She does not notice her heart pounding or beating irregularly night. She rarely falls asleep during the day. She constantly falls asleep involuntarily but never ever while driving. She does not have loss of muscle tone with strong emotion. She rarely has daytime difficulties due to her excessive sleepiness. She never feels paralyzed on waking or falling asleep. She rarely has vivid dreamlike scenes upon awakening or falling asleep. She never feels afraid to go to sleep. She occasionally has nightmares. She occasionally remembers her dreams. She occasionally has racing thoughts. On occasion she feels sad or depressed. She frequently has anxiety. She frequently has muscular tension. She occasionally notices parts of her body jerking. She never kicks at night. She never has crawling or aching feelings in her legs. She rarely has leg pain at night. She never has morning jaw pain. She does not grind her teeth during sleep. She frequently is bothered by pain during the day, occasionally awakened by pain during the night. She occasionally wakes up feeling stiff in the morning with sore achy muscles. She rarely wakes up with pain in the neck and spine. She has fatigue, memory problems and concentration difficulties. Normal bedtime is to a.m. falling asleep within 1 hour, typically waking between 2 and 3 times during the night to go to the bathroom, get a drink, watch TV and try to get back to sleep. Her normal wake time is between 8:00 a.m. and 9:00 a.m.. She estimates getting between 4 and 5 hours of sleep overnight. She keeps the same schedule on weekends. She does not generally take naps in the afternoon or evening. A short nap may be refreshing. She feels better in the afternoon compared to other times of day. Habits: Tobacco : never smoker Caffeine: 3 glasses of tea daily Alcohol: none Recreational substances: none PMFSH Past Medical History Medical History Rotator cuff tear arthropathy of right shoulder Right shoulder pain COVID-19 Osteoporosis Anemia Chronic headache Ulna fracture Open knee wound Stress fracture Hematoma of left knee region Screening for breast cancer Postmenopausal Weight gain Restless legs syndrome Anxiety and depression Attention deficit disorder Chronic low back pain Essential (primary) hypertension Iron deficiency anemia Mixed hyperlipidemia Type 2 diabetes mellitus with stage 1 chronic kidney disease Hypercholesteremia Hx of fracture of hip AB Arthritis Diabetes GERD (gastroesophageal reflux disease) Bleeding gums Vision loss History of frequent headaches Surgical History Surgical History History of open reduction and internal fixation (ORIF) procedure L Femur History of elbow surgery History of gastric bypass History of bilateral knee replacement History of total hip replacement AB Family History Family History Sibling Malignant neoplasm of prostate Acute myocardial infarction Mother Family history of malignant neoplasm of brain Family history of heart disease in male family member before age 55 Other Diabetes mellitus Family history of allergic disorder Family history of malignant neoplasm Hypertension Social History Social History Smoking status: Never smoker Second hand tobacco smoke exposure: No Alcohol intake: never Substance use: never Substance use type: does not use Do You Feel Safe in your Home?: Yes Lack of Transportation: No Lack of Food: Never True Current Housing: I Have Housing Concerned About Future Housing: Decline to Answer Difficulty Paying Gas/Electric Bills: Decline to Answer Difficulty Paying for Meds: Decline to Answer Currently Unemployed: Decline to Answer Education: Decline to Answer Difficulty w/ Childcare or Family Care: Decline to Answer Living arrangements: with family Occupation/Education: retired Gender identity (if verbalized by the patient): Female Sexual Orientation (if Verbalized by the Patient): Straight or Heterosexual Spiritual care concerns: No Agree to blood products: Yes Medications Home Medications ?Medication ?Instructions ?Recorded ?Confirmed ?Type blood-glucose meter #1 ea 12/22/19 04/25/24 Rx blood sugar diagnostic (Blood #100 ea 12/28/19 04/25/24 Rx Glucose Test strips) carvedilol 25 mg tablet 25 mg PO Q12H 03/09/20 04/25/24 History oxycodone-acetaminophen 5 mg-325 1 tablet PO Q6H 12/16/23 04/25/24 History mg tablet aripiprazole 5 mg tablet (Abilify) 5 mg PO DAILY #90 tabs 04/25/24 04/25/24 Rx dextroamphetamine-amphetamine 30 30 mg PO BID #60 tabs 04/25/24 04/25/24 Rx mg tablet (Adderall) escitalopram oxalate 10 mg tablet 10 mg PO DAILY #90 tabs 04/25/24 04/25/24 Rx escitalopram oxalate 20 mg tablet 20 mg PO DAILY #90 tabs 04/25/24 04/25/24 Rx hydrochlorothiazide 12.5 mg tablet 12.5 mg PO DAILY #90 tabs 04/25/24 04/25/24 Rx metformin 500 mg tablet See Rx Instructions .Route 04/25/24 04/25/24 Rx .COMPLEX #180 tabs oxybutynin chloride 5 mg 5 mg PO DAILY #90 tabs 04/25/24 04/25/24 Rx tablet,extended release 24 hr pantoprazole 40 mg tablet,delayed See Rx Instructions .Route 04/25/24 04/25/24 Rx release .COMPLEX #180 tabs pravastatin 20 mg tablet 20 mg PO DAILY #90 tabs 04/25/24 04/25/24 Rx ropinirole 1 mg tablet See Rx Instructions .Route 04/25/24 04/25/24 Rx .COMPLEX #90 tabs sumatriptan succinate 100 mg tablet See Rx Instructions PO .COMPLEX #9 04/25/24 04/25/24 Rx tabs cyclobenzaprine 10 mg tablet See Rx Instructions .Route 04/29/24 Rx .COMPLEX #270 tabs fluticasone propionate 50 2 spray intranasal DAILY #16 mL 04/29/24 Rx mcg/actuation nasal spray,suspension (Flonase Allergy Relief) magnesium oxide 400 mg (241.3 mg See Rx Instructions .Route 04/29/24 Rx magnesium) tablet .COMPLEX #90 tabs Sleep Procedure The sleep study was completed using ImpulsonicT a technically adequate device with seven channels: peripheral arterial tone, actigraphy, body position, snore, respiratory movement, pulse oximetry, sleep staging, and heart rate. Prior to using the device, the patient received verbal and written instructions for its application and was provided with the help desk phone number for additional telephonic instruction with 24-hour availability of qualified personnel to answer questions. Sleep Architecture The total recording time is 10 hrs, 5 min. The total sleep time is 8 hrs, 33 min. Sleep latency is 5 minutes. REM latency is 176 minutes. The patient had 11 episodes of waking. Sleep architecture shows 4.0% deep sleep, 68.5% light sleep, and 27.5% stage REM. The patient spent 99.2% of total sleep time in the supine position. Sleep efficiency was 85%. Respiratory Analysis The overall AHI (pAHI 3%:) is 33.6. The central AHI is 1.4. The overall AHI (pAHI 4%) is 12.6. The AHI was 27.9 in NREM and 48.2 in REM sleep. The AHI was 33.7 in Supine position. There was not enough sleep in non-supine position to calculate an AHI. There was no Juan Andrade respirations. Oximetry Data The oxygen desaturation index (SHAGUFTA 4%:) is 14.1. The mean saturation is 94%, and the lowest saturation is 81%. Time spent with saturation < 88% is 4.6 minutes. Snoring Profile Snoring average intensity is 42 dB. The patient snored above 45 decibels for 50.0 minutes, 9.7% of sleep time. Cardiac Profile The average pulse rate is 76 beats per minutes. The lowest pulse rate is 44 bpm. The highest pulse rate is 96 bpm. Cardiac rhythm analysis and sleep did not detect significant abnormality to suggest atrial fibrillation. Assessment and Plan Assessment and Plan (1) Obstructive sleep apnea: Code(s): G47.33 - Obstructive sleep apnea (adult) (pediatric) Status: Acute Assessment and Plan: This home sleep test using WatchPat on 05/31/2024 shows an apnea-hypopnea index of 33.6 with a 3% criteria, consistent with severe obstructive sleep apnea, desaturation to 81% and 4.6 minutes, 0.9% the study spent below 88%. The apnea hypopnea index using a 4% criteria is 12.6, consistent with mild obstructive sleep apnea. She has hypertension. With this medical co-morbidity, she qualifies for PAP treatment. She spent nearly the entire night in the supine position. Sleep architecture was normal. Her sleep latency was 5 minutes which is short however her REM latency was 176 minutes, prolonged so this is not consistent with narcolepsy. Patient did not have central apneas. She has significant medical comorbidities including diabetes, dependent edema, mixed hyperlipidemia and hypertension. I recommend that this patient be prescribed Resmed AirSense 11 AutoPAP 5-15 cm H2O, CPAP mask/filters/tubing and humidifier chamber. This should be used with all episodes of sleep. Compliance should be reviewed within 31-90 days of starting therapy for usage greater than 4 hours per night greater than 70% of the nights. The patient should be asked about symptoms such as excessive daytime sleepiness, quality of sleep, decreased nocturia, increased mental functioning such as memory, mood, and concentration. If the patient does not respond auto PAP, I recommend a CPAP titration in the sleep lab. She should not nap on the day of the study. She should have a sleep aid available for use, if needed, to get to sleep and stay asleep at the sleep lab. BMI is 34.8. Weight management is advised. Clinical data suggests that weight loss of 10% can reduce the severity of respiratory events and snoring and improve AHI by as much as 25%. (2) Inadequate sleep hygiene: Code(s): Z72.821 - Inadequate sleep hygiene Status: Acute Assessment and Plan: She has some habits which are not conducive to optimal sleep. Starting AutoPAP will definitely help the patient however she also needs to address sleep habits. She needs to maintain a fixed bedtime and wake time, avoid nap, and avoid using television during the night when she wakes. If she cannot return to sleep at night after 20 minutes, she should go to another room, read a boring book with a soft light, listen to soft music, pray, or meditate. Use of cell pone or other screens during the night is not recommended. Recommendations to improve sleep quality include: ? Practice a bedtime routine and keep the same sleep schedule including bedtime and wake up time, even on the weekends. Consistency makes it much easier to fall asleep and wake easily. ? If you have trouble sleeping at night, avoid naps, especially in the late afternoon. However, short naps lasting approximately 20 minutes can help alleviate daytime fatigue, sleepiness, and even provide cognitive benefit. Naps longer than 30 minutes can cause sleep inertia, a period of reduced alertness and cognitive performance after waking. ? Exercise daily. ? Maintain a sleep environment conducive to sleep. The bedroom should be comfortably cool. In population studies, nocturnal environmental light and noise significantly impact sleep quality and quantity. Use of blackout curtains, ear plugs, or sound machines may help promote an optimal sleep environment for individuals with sleep disruptions due to environmental stimuli. ? Sleep on a comfortable mattress and pillows. ? Regular bright light exposure in the mornings may help to maximize alertness and maintain a regular circadian rhythm. Studies in extreme latitudes where sunlight is minimal in the winter have found that an hour of exposure to white light in the morning helped subjects go to sleep earlier and wake earlier. Exposure to blue light in the morning may have more robust effects on the stability of the circadian rhythm and has been shown to improve daytime fatigue and sleepiness. ? Avoid cigarettes, caffeine, and heavy meals in the evening. While alcohol use does seem to reduce the time it takes to fall asleep, studies have reported that evening alcohol intake can cause more waking time or light sleep in the second half of the night and reduce self-reported sleep quality. Evening nicotine is associated with lower sleep efficiency and more awake time during the night. ? Wind down with quiet activities that may promote sleep, such as reading with a dim light. Avoid use of electronics at least 30 minutes before habitual bedtime and in the middle of the night if nocturnal awakenings occur. The blue light emitted from computer screens and hand-held devices can suppress natural melatonin production, resulting in difficulty falling asleep; however, the exact duration of use and intensity of lighting that cause this effect are variable in the literature. ? If you cannot sleep, do not look at a clock. Go into another room and do something relaxing until you feel drowsy enough to fall asleep again. Then return to bed. Data The data obtained during this sleep study is adequate for interpretation. Certification This sleep study has been reviewed by a board certified sleep medicine physician.
[2024-06-08 20:14] VITALS: BMI 34.7
== END 2024-06-01 10:53 | disposition home or self-care (01) ==
LOC: ANHCSM 09:17
PROVIDERS: PCP Nurse Practitioner Family; Visit Provider Nurse Practitioner Family
DX: G47.33 Obstructive sleep apnea (adult) (pediatric) (principal); Z72.821 Inadequate sleep hygiene; Z68.34 Body mass index [BMI] 34.0-34.9, adult
CPT/HCPCS: 95800

== ENCOUNTER 2024-07-28 11:09 | Outpatient (CLI) | payer MEDICARE, OTHER, SELFPAY ==
--- NOTE | ~2024-07-28 | XR_ITS ---
EXAMINATION: XR chest 2V 07/28/2024 11:30 INDICATION: Cough PROCEDURE: 2 view chest COMPARISON: Comparison to multiple prior studies sequentially, with oldest reviewed study dated 10/20. FINDINGS: The lungs are clear. The cardiomediastinal silhouette is within normal limits. There are no pleural effusions. There is no pneumothorax suspected. IMPRESSION: 1: NO ACUTE CARDIOPULMONARY DISEASE. Reviewed, dictated and finalized at location A.
== END 2024-07-28 11:10 | disposition home or self-care (01) ==
LOC: MICIMG 11:13
PROVIDERS: PCP Nurse Practitioner Family; Visit Provider Nurse Practitioner Family
DX: R05.9 Cough, unspecified (principal)
CPT/HCPCS: 71046

== ENCOUNTER 2024-11-04 09:48 | Outpatient (CLI) | payer MEDICARE, OTHER, SELFPAY ==
--- NOTE | ~2024-11-04 | MM_ITS ---
EXAMINATION: MM screening anya BI w lila HISTORY: Screening TECHNIQUE: Craniocaudal and mediolateral oblique 3-D tomosynthesis images were obtained and synthetic 2-D images were generated. CAD analysis was submitted and interpreted. COMPARISON: Comparison to multiple prior studies sequentially, with oldest reviewed study dated , 06/14/2004 BREAST PARENCHYMAL COMPOSITION: The breasts are almost entirely fatty. FINDINGS: There is no evidence of suspicious mass, calcification, or architectural distortion to suggest malignancy in either breast. IMPRESSION: 1. No mammographic evidence of malignancy. 2. Recommend routine screening mammography in one year. BI-RADS Category 1: Negative Reviewed, dictated and finalized at location B.
--- OUTSIDE RECORDS SUMMARY | 2024-11-04 09:53 | XMS_ITS | Clinical Summary ---
Author Organization [facility] Address [address] [place] [address] Care Team Providers Care Log Rafter Name Role Phone Stephen Michael MD Primary Care Provider [phone] Source Comments [facility],non-owned Affiliates and Associated Physician Practices is amultiple site organization consisting of ambulatory clinics and hospital sitesin [place], [place], [place] and [place]. This disclosure is being madepursuant to the Care Everywhere program and may not contain all information available regarding this patient. Last updated 17.[facility] Allergies Active Allergy Reactions Criticality Noted Date [...] on file Legal Sex Female 6:43 AM HAND ICER Gender Identity Not on file Sexual Orientation [...] 3:09 PM CDT Height 160 cm (5' 3) 08/27/2017 3:09 PM CDT Body Mass Index [...] 10/31/2019 7, 10/28/2016, 10/26/2016, Additional history exists DEPRESSION SCREENING 02/10/2024 COVID-19 VACCINE (1 - season) 2024 INFLUENZA VACCINE (#1) 2024 Respiratory Syncytial Virus (RSV) Vaccine Pt: [...] >60 mL/min/1.7 3m2 10/30/2016 5:19 AM CDT [facility] Blood BLOOD SPECIMEN / Unknown Lab Venipuncture / Unknown 10/30/2016 4:35 AM CDT 10/30/2016 4:49 AM CDT us Lauren Jessica MD LAB - CHEMISTRY ORDERABLES Final Result [facility] [address] [place] [address] from Last 3 Months or Most Recently Relevant to Health Maintenance Insurance [employer] MEDICARE [facility] MEDICARE Advance Directives * Full Code (Latest Code Status on File) Date Activated Date Inactivated Comments 10/29/2016 4:11 PM 11/03/2016 5:09 PM Care Teams Log Rafter Relationship Specialty Start Date End Date Stephen Michael MD [address] [place] [id number] PCP - General Internal Medicine 10/29/16
--- OUTSIDE RECORDS SUMMARY | 2024-11-04 09:53 | XMS_ITS | Encounter Summary ---
Author Organization [facility] Address [address] [place] [address] Care Team Providers Care Fire Control Assistant Name Role Phone Stephen Michael MD Primary Care Provider + Reason for Visit * Reason Onset Date Comments Irregular Heart Beat 04/06/2020 JANEE AT [place] PRABHAKAR EX Encounter Details Date Type Department Care Team (Late st Contact Info) Description 04/06/2020 Telephone [facility] Admitting [address] [place] [address] [place] [address] [address] Irregular Heart Beat (JAENE AT [place] EX) Social History Tobacco Use [...] COVID-19? No / Unsure 03/30/2020 11:37 AM MANAGER OF COMPENSATION documented as of this encounter Plan of Treatment Not on file documented as of this encounter Visit Diagnoses Not on filedocumented in this encounter Care Teams Fire Control Assistant Relationship Specialty Start Date End Date Stephen Michael MD [address] [place] [address] PCP - General Internal Medicine 06/23/18 documented as of this encounter
--- OUTSIDE RECORDS SUMMARY | 2024-11-04 09:53 | XMS_ITS | Clinical Summary ---
Author Organization [facility] Address [facility] [place] [address] Phone Care Team Providers Care Cattle Sorter Name Role Phone Unavailable Primary Care Provider [...] 4:00 PM CDT Height 160 cm (5' 3) 10/29/2016 4:00 PM CDT Body Mass Index 36.49 10/29/2016 4:00 PM CDT Plan of Treatment Health Maintenance Due Date Last Done Comments CT Colonography 1960 Colonoscopy 1960 Colorectal Cancer Screening 1960 FIT-DNA (Cologuard) 1960 FIT 1960 FOBT 1960 HPV/PAP 1960 Sigmoidoscopy 1960 Annual Visit Topic 02/27/1961 MMR Vaccines (1 of 1 - Stand gabby series) 02/27/1961 Hepatitis C Screening 02/27/1978 DTaP/Tdap/Td Vaccines (1 - Tdap) 02/27/1979 Pap Smear 02/27/1981 Cervical Cancer Screening 02/27/1990 HPV/Cotest 02/27/1990 HPV 02/27/1990 Mammogram 2000 HIB Vaccines Aged Out No longer eligi ble based on patient's age to complete this topic HPV Vaccines Aged Out No longer eligi ble based on patient's age to complete this topic Hepatitis A Vaccines Aged Out No long er eligible based on patient's age to complete this topic Hepatitis B Vaccines Aged Out No long er eligible based on patient's age to complete this topic IPV Vaccines Aged Out No longer eligi ble based on patient's age to complete this topic Meningococcal Vaccine Aged Out No joey alcides eligible based on patient's age to complete this topic Pneumococcal Vaccine: Pediat rics (0 to 5 years) and At-Risk Patients (6 to 64 Years) Aged Out No longer eligible b ased on patient's age to complete this topic Advance Directives * Full Resuscitation (Latest Code Status on File) Date Activated Date Inactivated Comments 10/29/2016 4:22 PM 11/03/2016 7:24 PM
--- OUTSIDE RECORDS SUMMARY | 2024-11-04 09:53 | XMS_ITS | Encounter Summary ---
Author Organization [facility] Address [address] [place] [address] Care Team Providers Care Concession Supervisor Name Role Phone Stephen Michael MD Primary Care Provider + Reason for Visit * Reason Onset Date Comments Recurring hyperkalemia 04/03/2020 Gave mess age to dr. Mendoza on cell phone Encounter Details Date Type Department Care Team (Late st Contact Info) Description 04/03/2020 Telephone [facility] Admitting [address] [place] [address] Mitch Feliciano MD [address] [place] [address] Recurring hyperkalemia (Gave message to [...] COVID-19? No / Unsure 03/30/2020 11:37 AM CABINETMAKER MAINTENANCE documented as of this encounter Functional Status documented as of this encounter Plan of Treatment Not on file documented as of this encounter Visit Diagnoses Not on filedocumented in this encounter Care Teams Concession Supervisor Relationship Specialty Start Date End Date Stephen Michael MD [address] [place] [id number] PCP - General Internal Medicine 06/23/18 documented as of this encounter
--- OUTSIDE RECORDS SUMMARY | 2024-11-04 09:53 | XMS_ITS | Clinical Summary ---
Author Organization [facility] Address [address] [place] [address] Phone Care Team Providers Care Leadite Man Name Role Phone Roberta Cuellar SUPERVISOR BRAKE REPAIR Unavailable [phone] Anju Gracia NP Primary Care Provider [phone] Allergies Active Allergy Reactions Criticality Noted Date [...] THREE TIMES A DAY NEEDED 8 Active dextroamphetamin e-amphetamine XR (ADDERALL XR) 30 mg 24 hr capsule 0 Active rOPINIRole (REQUIP) 1 mg tablet Take 1 tablet (1 mg total) by mouth daily [address] (PROTONIX) 40 mg EC tablet Take 1 tablet (40 mg total) by mouth every morning 2 Active alendronate (FOSAMAX) 70 mg tablet TAKE 1 TABLET BY MOUTH ONCE WEEKLY 2 Active oxyCODONE-acetam inophen (PERCOCET) 5-325 mg per tablet TAKE 1 TABLET BY MOUTH EVERY 6 TO 8 HOURS NEEDED 2 Active rizatriptan (MAXALT) 10 mg tablet TAKE 1 TABLET BY MOUTH ONCE AT ONSET OF HEADACHE, MAY REPEAT IN 2 HOURS IF NEEDED, MAX 3 TABS/24 HRS 2 Active ARIPiprazole (ABILIFY) 5 mg tablet 5 MG ORALLY DAILY 2 Active dextroamphetamin e-amphetamine (ADDERALL) 30 mg tablet TALE 1 TABLET BY MOUTH TWICE A DAY ADMINISTER DOSES AT LEAST 4-6 HOURS APART 3 Active semaglutide (OZEMPIC) 1 mg/dose (4 mg/3 mL) pen injector injectionIndicat ions:type 2 diabetes mellitus Inject 1 mg under the skin every 7 days 3 mL 3 Active Additional Information Patient not taking.Reported on 07/12/2024 oxyBUTYnin XL (DITROPAN-XL) 5 mg 24 hr tablet Take 1 tablet (5 mg total) by mouth daily 3 Active hydroCHLOROthiaz maxx 12.5 mg tablet Take 1 tablet (12.5 mg total) by mouth daily 4 Active isosorbide mononitrate ER (IMDUR) 30 mg 24 hr tabletIndication s:Pulmonary hypertension (HCC),MOSS (dyspnea on exertion) TAKE 1 TABLET BY MOUTH EVERY DAY 90 tablet 1 5 Active carvediloL (COREG) 25 mg tabletIndication s:Hypertension associated with diabetes (HCC),Elevated left ventricular end-diastolic pressure TAKE 1 TABLET BY MOUTH TWICE A DAY WITH FOOD 180 tablet 3 5 Active Active Problems Problem Noted Date Diagnosed Date Nonrheumatic aortic valve stenosis 07/12/2024 Left carotid bruit 07/12/2024 Elevated left ventricular end-diastolic pressure (LVEDP) 06/30/2023 MOSS (dyspnea on exertion) 10/08/2021 Iron deficiency anemia petrona braden to inadequate dietary iron intake 03/22/2019 Anemia, [...] unspecified 01/19/2018 Left upper extremity swelling 11/02/2017 Encounters Date Type Department Care Team Description 08/19/2024 11:00 AM CDT Ancillary Procedure [facility] Vascular and Vein Surgery at [address] [place] [phone] Left carotid bruit 08/19/2024 10:15 AM CDT Ancillary Procedure [facility] Cardiology at [address] [place] [phone] Hypertension associated with diabetes (HCC); Pulmonary hypertension (HCC); Nonrheumatic aortic valve stenosis 08/19/2024 Results Follow-Up [facility] Medical [facility] Cardiology [address] [phone] Nini Jean-Baptiste MD US Carotids Duplex Bilateral, Transthoracic Echo (TTE) Complete W Doppler/CF from Last 3 Months Immunizations Immunization Administration Dates Next Due Influenza, Quadrivalent, Split, Intramuscular Influenza, Quadrivalent, Spl it, Preservative Free, Intramuscular 11/11/2018 Influenza, Unspecified 01/01/2016,10/27/2012 Pfizer SARS-CoV-2 Monovalent Vaccination (12+ Yrs) PURPLE 06/21/2020,05/31/2020 Surgical History Surgery Date Site/Laterality Comments COLONOSCOPY SECTION TOTAL HIP ARTHROPLASTY Bilateral TOTAL KNEE ARTHROPLASTY Bilateral FEMUR SURGERY 02/10/2020 - 02/08/2021 SHOULDER SURGERY Left Medical History Medical History Date Comments Diabetes mellitus Hypertension Hyperlipidemia Anemia Arthritis Periprosth osteolys of [...] of Binge Drinking Not on file 03/13 Comments Unknown Sex and Gender Information Value Date Recorded Sex Assigned at Not on file Legal Sex Female 2:30 PM GROUP SALES REPRESENTATIVE Gender Identity Female 10/16/2021 2:52 PM CDT Sexual Orientation Straight 10/16/2021 2: 52 PM CDT Obstetrics History Last Filed Vital Signs Vital Sign Reading Time Taken Comments Blood Pressure 114/64 07/12/2024 1:03 PM CDT Pulse 83 07/12/2024 1:03 PM CDT Temperature 36.4 C (97.5 F) 06/22/2024 1:08 PM CDT Respiratory Rate 16 06/22/2024 1:08 PM CDT Oxygen Saturation 96% 07/12/2024 1:03 PM CDT Inhaled Oxygen Concentration - - Weight 88.5 kg (195 lb) 07/12/2024 1:03 PM CDT Height 160 cm (5' 3) 07/12/2024 1:03 PM CDT Body Mass Index 34.54 07/12/2024 1:03 PM CDT Plan of Treatment Health Maintenance Due Date Last Done Comments Albumin Creatinine Ratio, Urine 1960 Breast Cancer Screening-Mammogram 1960 Cervical Cancer Screening 1960 Colon Cancer Screening-Colonoscopy 1960 Depression Screening 1960 Hemoglobin A1C 1960 Hepatitis C Screening 1960 Dilated Eye Exam 1960 Foot Exam 1960 DTaP/Tdap/Td Vaccine (1 - Tdap) 02/27/1971 Hepatitis B Screening 02/27/1978 Regular Well Visit/Exam 18-64 02/27/1978 Pneumococcal vaccine <65 (1 of 2 - PCV) 02/27/1979 Zoster Vaccine (1 of 2) 02/27/2010 Covid-19 Vaccine (3 2024-2 6 season) 2024 06/21/2020, 05/31/2020 Influenza Vaccine (#1) 2024 9, 01/11/2017, 01/01/2016, Additional history exists eGFR 06/22/2025 06/22/2024 Lipid Panel 07/12/2025 07/12/2024, 12/11, 10/08/2021, Additional history exists Procedures Procedure Name Priority Date/Time Associated Diagnosis Comments US CAROTIDS DUPLEX BILATERAL Schedule Routine, Read Routine (OP Routine) 08/19/2024 11:17 AM CDT Left carotid bruit TRANSTHORACIC ECHO (TTE) COMPLETE W DOPPLER/CF W CONTRAST Routine 08/19/2024 10:46 AM CDT Hypertension associated with diabetes (HCC) Pulmonary hypertension (HCC) Nonrheumatic aortic valve stenosis POCT LIPID PANEL Routine 07/12/2024 1:05 AM CDT Hyperlipidemia associated with type 2 diabetes mellitus (HCC) EGFR Routine 06/22/2024 12:57 PM CDT Iron deficiency anemia, unspecified iron deficiency anemia type from Last 3 Months or Most Recently Relevant to Health Maintenance Results * US Carotids Duplex Bilateral (08/19/2024 11:17 AM CDT) Anatomical Region Laterality Modality Vascular Bilateral Ultrasound 08/19/2024 10:0 0 AM CDT Narrative 08/19/2024 1:44 PM CDT Vascular & Vein Surgery [address] [facility] [place] [address] Carotid Duplex Ultrasound Report Patient Name: REGINA BOYLE R : 1960 (64y 5m) Study Date: 08/19/2024 10:00:03 AM Gender: F Bank Representative: Location: [facility] Ref Provider: NINI JEAN-BAPTISTE Quality: Adequate Order Provider: NINI JEAN-BAPTISTE PROCEDURES: Carotid Report: Carotid duplex examination of the extracranial arteries was performed using 2D, color and spectral Doppler. INDICATIONS: R09.89 Other specified symptoms and signs involving the circulatory and respiratory systems. HISTORY: HTN. HLD. COMPARISONS: No previous exams. MEASUREMENTS: Right Value Left Value RT Prox CCA PSV 90 cm/sec LT Prox CCA PSV 88 cm/sec RT Prox CCA EDV 16 cm/sec LT Prox CCA EDV 24 cm/sec RT Distal CCA PSV 70 cm/sec LT Distal CCA PSV 74 cm/sec RT Distal CCA EDV 15 cm/sec LT Distal CCA EDV 19 cm/sec RT Prox ICA PSV 52 cm/sec LT Prox ICA PSV 64 cm/sec RT Prox ICA EDV 16 cm/sec LT Prox ICA EDV 16 cm/sec RT Mid ICA PSV 78 cm/sec LT Mid ICA PSV 76 cm/sec RT Mid ICA EDV 24 cm/sec LT Mid ICA EDV 22 cm/sec RT Distal ICA PSV 48 cm/sec LT Distal ICA PSV 66 cm/sec RT Distal ICA EDV 14 cm/sec LT Distal ICA EDV 22 cm/sec RT ECA Prx PSV 80 cm/sec LT ECA Prx PSV 73 cm/sec RT ICA/CCA 1.11 ratio LT ICA/CCA 1.03 ratio Rt Vert Dst PSV 56 cm/sec Lt Vert Dst PSV 54 cm/sec FINDINGS: Rt Common Carotid Artery: Duplex imaging of the right common carotid artery is within normal limits without evidence of atherosclerotic disease. Rt Internal Carotid Artery: The plaque in the right internal carotid artery appears to be heterogeneous and smooth. Atherosclerotic changes of the right internal carotid artery without hemodynamically significant Doppler findings. <50% stenosis. Rt External Carotid Artery: The right external carotid artery is patent without evidence of atherosclerotic plaque. Rt Vertebral Artery: The right vertebral artery is patent with antegrade flow. Lt Common Carotid Artery: Duplex imaging of the left common carotid artery is within normal limits without evidence of atherosclerotic disease. Lt Internal Carotid Artery: The plaque in the left internal carotid artery appears to be heterogeneous and smooth. Atherosclerotic changes of the left internal carotid artery without hemodynamically significant Doppler findings. <50% stenosis. Lt External Carotid Artery: The left external carotid artery is patent without evidence of atherosclerotic plaque. Lt Vertebral Artery: The left vertebral artery is patent with antegrade flow. Comments: Brachial artery systolic blood pressure is 147 on the right, 136 on the left. CONCLUSIONS: 1. No evidence of hemodynamically significant disease of the bilateral extracranial carotid system. 2. Normal, antegrade flow is noted in bilateral vertebral arteries. ATTESTATION: I have reviewed and interpreted the pertinent images and measurements of this study. I attest to the conclusions in the final report that is provided above. Electronically Signed By: Luis Angel Boo MD 08/19/2024 1:11:28 PM CDT Procedure Note Luis Angel Boo MD - 08/19/2024 Vascular & Vein Surgery [address] [place] [address] Carotid Duplex Ultrasound Report Patient Name: REGINA BOYLE R : 1960 (64y 5m) Study Date: 08/19/2024 10:00:03 AM Gender: F Bank Representative: YEN Location: [facility] Ref Provider: NINI JEAN-BAPTISTE Quality: Adequate Order Provider: NINI JEAN-BAPTISTE PROCEDURES: Carotid Report: Carotid duplex examination of the extracranial arterieswas performed using 2D, color and spectral Doppler. INDICATIONS: R09.89 Other specified symptoms and signs involving the circulatory andrespiratory systems. HISTORY: HTN. HLD. COMPARISONS: No previous exams. MEASUREMENTS: Right Value Left Value RT Prox CCA PSV 90 cm/sec LT Prox CCA PSV 88 cm/sec RT Prox CCA EDV 16 cm/sec LT Prox CCA EDV 24 cm/sec RT Distal CCA PSV 70 cm/sec LT Distal CCA PSV 74 cm/sec RT Distal CCA EDV 15 cm/sec LT Distal CCA EDV 19 cm/sec RT Prox ICA PSV 52 cm/sec LT Prox ICA PSV 64 cm/sec RT Prox ICA EDV 16 cm/sec LT Prox ICA EDV 16 cm/sec RT Mid ICA PSV 78 cm/sec LT Mid ICA PSV 76 cm/sec RT Mid ICA EDV 24 cm/sec LT Mid ICA EDV 22 cm/sec RT Distal ICA PSV 48 cm/sec LT Distal ICA PSV 66 cm/sec RT Distal ICA EDV 14 cm/sec LT Distal ICA EDV 22 cm/sec RT ECA Prx PSV 80 cm/sec LT ECA Prx PSV 73 cm/sec RT ICA/CCA 1.11 ratio LT ICA/CCA 1.03 ratio Rt Vert Dst PSV 56 cm/sec Lt Vert Dst PSV 54 cm/sec FINDINGS: Rt Common Carotid Artery: Duplex imaging of the right common carotidartery is within normal limits without evidence of atherosclerotic disease. Rt Internal Carotid Artery: The plaque in the right internal carotidartery appears to be heterogeneous and smooth. Atherosclerotic changes of the right internalcarotid artery without hemodynamically significant Doppler findings. <50% stenosis. Rt External Carotid Artery: The right external carotid artery is patentwithout evidence of atherosclerotic plaque. Rt Vertebral Artery: The right vertebral artery is patent with antegradeflow. Lt Common Carotid Artery: Duplex imaging of the left common carotid arteryis within normal limits without evidence of atherosclerotic disease. Lt Internal Carotid Artery: The plaque in the left internal carotid arteryappears to be heterogeneous and smooth. Atherosclerotic changes of the left internalcarotid artery without hemodynamically significant Doppler findings. <50% stenosis. Lt External Carotid Artery: The left external carotid artery is patentwithout evidence of atherosclerotic plaque. Lt Vertebral Artery: The left vertebral artery is patent with antegradeflow. Comments: Brachial artery systolic blood pressure is 147 on the right, 136on the left. CONCLUSIONS: 1. No evidence of hemodynamically significant disease of the bilateralextracranial carotid system. 2. Normal, antegrade flow is noted in bilateral vertebral arteries. ATTESTATION: I have reviewed and interpreted the pertinent images and measurements ofthis study. I attest to the conclusions in the final report that is provided above. Electronically Signed By: Luis Angel Boo MD 08/19/2024 1:11:28 PM CDT us Nini Jean-Baptiste MD IMG US PROCEDURES Final R esult * TRANSTHORACIC ECHO (TTE) COMPLETE W DOPPLER/CF W CONTRAST (08/19/2024 10:46 AM CDT) Estimated EF 70-75 % CONS SCIMAGE EF Mod BP 78 % CONS SCIMAGE Anatomical Region Laterality Modality Ultrasound 08/19/2024 9:49 AM CDT Narrative 08/19/2024 12:59 PM CDT [facility] Medical Group Cardiology [facility], [address], [place] [address] P:[phone] P:[phone] Echocardiographic Report Patient Name: REGINA BOYLE R : 1960 Study Date: 08/19/2024 9:49:08 AM Gender: F Bank Representative: TIFFANIE Location: [facility] Ref Provider: NINI JEAN-BAPTISTE Height(Cm): 160 BSA: 1.98 Weight(Kg): 88.5 Heart Rate: 156 BP: 114 / 64 Quality: Good Order Provider: NINI JEAN-BAPTISTE PROCEDURES: Echocardiographic Report: Transthoracic echocardiogram with complete 2D, M-Mode, color Doppler examination and Definity contrast. INDICATIONS: PHTN, HTN, Diabetes. MEASUREMENTS: 2D/MM Value Range Doppler Value Range EF Mod BP 78 % [ 54 - 74 ] AV Mean PG 4 mmHg EF Teich MM 77 % [ 54 - 74 ] AV Peak Vince 1.45 m/s [ 1.00 - 1.70 ] Estimated EF 70-75 % AV Peak PG 8 mmHg LVIDd 2D 5.03 cm [ 3.80 - 5.20 ] AV VTI 30.96 cm LVIDd MM 4.76 cm [ 3.80 - 5.20 ] LVOT Peak Vince 1.32 m/s [ 0.70 - 1.10 ] LVIDs 2D 4.02 cm [ 2.20 - 3.50 ] LVOT VTI 29.53 cm LVIDs MM 2.57 cm [ 2.20 - 3.50 ] MV E Peak Vince 1.00 m/s [ 0.60 - 1.30 ] LVPWd 2D 1.15 cm [ 0.60 - 0.90 ] MV A Peak Vince 1.07 m/s [ 1.00 - 1.20 ] LVPWd MM 0.89 cm [ 0.60 - 0.90 ] MV Decel Time 212 msec [ 104 - 258 ] IVSd 2D 0.95 cm [ 0.60 - 0.90 ] PV Peak Vince 0.85 m/s [ 0.40 - 0.80 ] IVSd MM 1.30 cm [ 0.60 - 0.90 ] RV S` 0.11 m/s LA Dimension MM 3.75 cm [ 2.70 - 3.80 ] Lateral E` 0.09 m/s [ 0.10 - 0.15 ] AoR Diam MM 3.49 cm [ 2.70 - 3.70 ] Septal E` 0.06 m/s [ 0.08 - 0.15 ] LA Volume 51.54 ml [ 22.00 - 52.00 ] E` 0.08 m/s LA Volume Index 26 cc/m2 [ 16 - 28 ] E/E` 13 ACS MM 1.82 cm Tapse 2.20 cm [ 1.71 - 5.00 ] RA Volume 20.30 ml 2D/MM Value Range Doppler Value Range - FINDINGS: Interpretation Site: Exam was interpreted at [facility]. Left Ventricle: Normal left ventricular systolic function. No focal wall motion abnormalities. Normal left ventricular size. Definity contrast agent used to visually enhance endocardial wall motion and contractility. Lot Number: [id number]. Mild concentric left ventricular hypertrophy. Ejection fraction is measured at 78 %. Ejection Fraction is visually estimated to be 70-75 %. Right Ventricle: Normal right ventricular size. Normal right ventricular systolic function. Left Atrium: There is mild enlargement of left atrium. Right Atrium: The right atrium is normal in size. Atrial Septum: Thin and hypermobile atrial septum. Mitral Valve: Severe mitral annular calcification. Mild mitral valve regurgitation. There is no hemodynamically significant mitral stenosis by Doppler. Aortic Valve: No evidence of hemodynamically significant aortic stenosis by Doppler. Aortic cusps appear moderately calcified. Trileaflet aortic valve. Trace aortic valve regurgitation. Tricuspid Valve: Normal appearance of the tricuspid valve. Right ventricular systolic pressure could not be estimated due to inadequate visualization of the tricuspid regurgitation jet. Trivial regurgitation in the tricuspid valve. Pulmonic Valve: Normal appearance of the pulmonic valve. No pulmonic stenosis. Mild pulmonic regurgitation. Pericardium: Normal pericardium with no significant pericardial effusion. Aorta: No aortic root dilation. Mild aortic root calcification. IVC: Normal size and normal respiratory collapse consistent with normal right atrial pressure (<5 mmHg). CONCLUSIONS: Normal left ventricular systolic function. No focal wall motion abnormalities. Normal left ventricular size. Definity contrast agent used to visually enhance endocardial wall motion and contractility. Lot Number: [id number]. Mild concentric left ventricular hypertrophy. Ejection fraction is measured at 78 %. Ejection Fraction is visually estimated to be 70-75 %. There is mild enlargement of left atrium. Severe mitral annular calcification. Mild mitral valve regurgitation. Aortic cusps appear moderately calcified. Mild pulmonic regurgitation. No aortic root dilation. Mild aortic root calcification. Normal sinus rhythm. Electronically Signed By: Nini Jean-Baptiste MD 08/19/2024 12:59:30 PM CDT Procedure Note Nini Jean-Baptiste MD - 08/19/2024 [facility] Medical Group Cardiology [address] [facility], [address], [place] [address] [phone] P:[phone] Echocardiographic Report Patient Name: REGINA BOYLE R : 1960 Study Date: 08/19/2024 9:49:08 AM Gender: F Bank Representative: TIFFANIE Location: [facility] Ref Provider: NINI JEAN-BAPTISTE Height(Cm): 160 BSA: 1.98 Weight(Kg): 88.5 Heart Rate: 156 BP: 114 / 64 Quality: Good Order Provider: NINI JEAN-BAPTISTE PROCEDURES: Echocardiographic Report: Transthoracic echocardiogram with complete 2D, M-Mode, color Dopplerexamination and Definity contrast. INDICATIONS: PHTN, HTN, Diabetes. MEASUREMENTS: 2D/MM Value Range Doppler ValueRange EF Mod BP 78 % [ 54 - 74 ] AV Mean PG 4mmHg EF Teich MM 77 % [ 54 - 74 ] AV Peak Vince 1.45m/s [ 1.00 - 1.70 ] Estimated EF 70-75 % AV Peak PG 8mmHg LVIDd 2D 5.03 cm [ 3.80 - 5.20 ] AV VTI 30.96cm LVIDd MM 4.76 cm [ 3.80 - 5.20 ] LVOT Peak Vince 1.32m/s [ 0.70 - 1.10 ] LVIDs 2D 4.02 cm [ 2.20 - 3.50 ] LVOT VTI 29.53cm LVIDs MM 2.57 cm [ 2.20 - 3.50 ] MV E Peak Vince 1.00m/s [ 0.60 - 1.30 ] LVPWd 2D 1.15 cm [ 0.60 - 0.90 ] MV A Peak Vince 1.07m/s [ 1.00 - 1.20 ] LVPWd MM 0.89 cm [ 0.60 - 0.90 ] MV Decel Time 212msec [ 104 - 258 ] IVSd 2D 0.95 cm [ 0.60 - 0.90 ] PV Peak Vince 0.85m/s [ 0.40 - 0.80 ] IVSd MM 1.30 cm [ 0.60 - 0.90 ] RV S` 0.11m/s LA Dimension MM 3.75 cm [ 2.70 - 3.80 ] Lateral E` 0.09m/s [ 0.10 - 0.15 ] AoR Diam MM 3.49 cm [ 2.70 - 3.70 ] Septal E` 0.06m/s [ 0.08 - 0.15 ] LA Volume 51.54 ml [ 22.00 - 52.00 ] E` 0.08m/s LA Volume Index 26 cc/m2 [ 16 - 28 ] E/E` 13 ACS MM 1.82 cm Tapse 2.20cm [ 1.71 - 5.00 ] RA Volume 20.30ml 2D/MM Value Range Doppler ValueRange - FINDINGS: Interpretation Site: Exam was interpreted at [facility]. Left Ventricle: Normal left ventricular systolic function. No focal wall motionabnormalities. Normal left ventricular size. Definity contrast agent used to visually enhanceendocardial wall motion and contractility. Lot Number: [id number]. Mild concentric leftventricular hypertrophy. Ejection fraction is measured at 78 %. Ejection Fraction isvisually estimated to be 70-75 %. Right Ventricle: Normal right ventricular size. Normal right ventricular systolicfunction. Left Atrium: There is mild enlargement of left atrium. Right Atrium: The right atrium is normal in size. Atrial Septum: Thin and hypermobile atrial septum. Mitral Valve: Severe mitral annular calcification. Mild mitral valve regurgitation.There is no hemodynamically significant mitral stenosis by Doppler. Aortic Valve: No evidence of hemodynamically significant aortic stenosis by Doppler.Aortic cusps appear moderately calcified. Trileaflet aortic valve. Trace aortic valveregurgitation. Tricuspid Valve: Normal appearance of the tricuspid valve. Right ventricular systolicpressure could not be estimated due to inadequate visualization of the tricuspidregurgitation jet. Trivial regurgitation in the tricuspid valve. Pulmonic Valve: Normal appearance of the pulmonic valve. No pulmonic stenosis. Mildpulmonic regurgitation. Pericardium: Normal pericardium with no significant pericardial effusion. Aorta: No aortic root dilation. Mild aortic root calcification. IVC: Normal size and normal respiratory collapse consistent with normal rightatrial pressure (<5 mmHg). CONCLUSIONS: Normal left ventricular systolic function. No focal wall motionabnormalities. Normal left ventricular size. Definity contrast agent used to visually enhanceendocardial wall motion and contractility. Lot Number: [id number]. Mild concentric leftventricular hypertrophy. Ejection fraction is measured at 78 %. Ejection Fraction isvisually estimated to be 70-75 %. There is mild enlargement of left atrium. Severe mitral annular calcification. Mild mitral valve regurgitation. Aortic cusps appear moderately calcified. Mild pulmonic regurgitation. No aortic root dilation. Mild aortic root calcification. Normal sinus rhythm. Electronically Signed By: Nini Jean-Baptiste MD 08/19/2024 12:59:30 PM CDT Nini Jean-Baptiste MD CV ECHO PROCEDURES Final Result * POCT lipid panel (07/12/2024 1:05 AM CDT) [facility] Signature Cholesterol, POC 166 <200 MG/DL HDL, POC 60 >=40 mg/dL Triglycerides, POC 78 <=149 mg/dL LDL Cholesterol POC 90 <=129 mg/dL Chol/HDL Ratio, POC 1.5 NONE Non-HDL Cholesterol, POC 106 NONE mg/dL Cholesterol Total, POC 166 30 - 199 mg/dL Capillary blood 07/12/2024 1 :05 AM CDT Nini Jean-Baptiste MD POINT OF CARE TEST ORDERA BLES Final Result * (ABNORMAL) eGFR (06/22/2024 12:57 PM CDT) eGFR 46(L) >=60 mL/min/1. 73 m2 Comment: Interpretive Data Reference Interval Normal >/= 90 mL/min/1.73m2 Mildly decreased* 60 - 89 mL/min/1.73m2 Mildly to moderately decreased 45 - 59 mL/min/1.73m2 Moderately to severely decreased 30 - 44 mL/min/1.73m2 Severely decreased 15 - 29 mL/min/1.73m2 Kidney Failure < 15 mL/min/1.73m2 *Relative to young adult level Estimated glomerular filtration rate is determined by the 2020 CKD-EPI equation recommended by the National Kidney Foundation (A Unifying Approach to GFR Estimation: Recommendations of the NKF-ASK Task Force on Reassessing the Inclusion of Race in Diagnosing Kidney Disease, JASN 2020). The CKD-EPI equation should not be used for patients with unstable renal function and has not been validated in children and those over 70. Current interpretive data was last reviewed 2020. Testing performed by: [facility], [address] [place] [address]., [id number] Blood 06/22/2024 12:5 7 PM CDT 06/22/2024 12:57 PM CDT us Elysia Singletary SUPERVISOR BRAKE REPAIR LAB BLOOD ORDERABLES Final Result Performing Organization Address City/State/[facility] Phone Number [facility] [address] [facility] Department [place] [address] from Last 3 Months or Most Recently Relevant to Health Maintenance Insurance [employer]ICARE [employer] [place] MEDICARE [place] [facility] [place] MEDICARE [facility] Care Teams Leadite Man Relationship Specialty Start Date End Date Anju Gracia SUPERVISOR BRAKE REPAIR [address] [address] PCP - General Nurse Practitioner 06/22/24 Roberta Cuellar, [facility] [address] [place] [id number] Nurse Practitioner Medical Oncology 05/19/22
--- OUTSIDE RECORDS SUMMARY | 2024-11-04 09:53 | XMS_ITS | Patient Health Record ---
Author Organization [facility] Address [address] [facility] [address] [place] [address] Care Team Providers Care Aboriginal Home School Liaison Officer Name Role Phone Miguel Angel Olivas Unavailable [phone] Reason For Referral No Information Medications Medication SIG (Take, Route, Frequency, Duration) Notes Start Date End Date Status Carvedilol 12.5 MG Tablet Oral 05/12/2019 Active oxyCODONE-Acetaminophe n 5-325 MG Tablet Oral 05/12/2019 Active Gabapentin 300 MG Capsule Oral 05/12/2019 Active Escitalopram Oxalate 20 MG Tablet Oral 05/12/2019 Active Pravastatin Sodium 20 MG Tablet Oral 05/12/2019 Active HYDROcodone-Acetaminop hen 7.5-325 MG Tablet Oral 05/12/2019 Active Cefadroxil 500 MG Capsule Oral 05/12/2019 Active OneTouch Ultra Blue Strip In Vitro 05/12/2019 Active Esomeprazole Magnesium 40 MG Capsule Delayed Release Oral 05/12/2019 Active Cyclobenzaprine HCl 10 MG Tablet Oral 05/12/2019 Active Cephalexin 500 MG Capsule Oral 05/12/2019 Active busPIRone HCl 15 MG Tablet Oral 05/12/2019 Active Amphetamine-Dextroamph et ER 30 MG Capsule Extended Release 24 Hour Oral 05/12/2019 Active rOPINIRole HCl 1 MG Tablet Oral 05/12/2019 Active metFORMIN HCl 500 MG Tablet Oral 05/12/2019 Active Sulfamethoxazole-Trime thoprim 800-160 MG Tablet Oral 05/12/2019 Active ARIPiprazole 2 MG Tablet Oral 05/12/2019 Active Lisinopril 20 MG Tablet Oral 05/12/2019 Active Aspirin Adult Low Strength 81 MG Tablet Delayed Release Oral 05/12/2019 Active Omeprazole 40 MG Capsule Delayed Release Oral 05/12/2019 Active SUMAtriptan Succinate 50 MG Tablet Oral 05/12/2019 Active Carvedilol 25 MG Tablet Oral 05/12/2019 Active OneTouch Ultra 2 w/Device Kit 05/12/2019 Active Belsomra 20 mg Tablet Oral 05/12/2019 Active Carvedilol 6.25 MG Tablet Oral 05/12/2019 Active MICRO THIN LANCETS 33 gauge EACH MISCELLANEOUS *Reorder from [facility] for eRx and Interaction Alerts* 05/12/2019 Active Immunizations Vaccine Route Administration Date Status Comme nts Influenza virus vaccine, quadrivalent (IIV4), split virus, 0.25 mL dosage Unknown 11/11/2018 Administered Social History Social History Additional Details Category Social Info Options Details Migrated Social History Migrated Social History Alcohol Intake: None 12/17/2017,Tobacco Years: Never smoker 12/17/2017,Smoking Status: 0 11/09/2018 Plan Of Treatment No Information Insurance Providers Payer Name Payer Address Payer Phone Subscriber Number Group Number Insured Name Patient Relationship to Insured Coverage Start Date Coverage End Date [place] Medicare [address] LETITIA JACQUES [address] [id number] ADRIANA BOYLE Self - patient is the insured [place] Medicare Supplement [address] [employer] [place] [id number] ADRIANA BOYLE Self - patient is the insured
--- OUTSIDE RECORDS SUMMARY | 2024-11-04 09:53 | XMS_ITS | Clinical Summary ---
Author Organization [facility] Address [address] [place] [address] Phone Care Team Providers Care Job Coach Name Role Phone Stephen Michael MD Primary Care Provider + Allergies Active Allergy Reactions Criticality Noted Date Comments Cimetidine Hcl Rash Low 06/21/2018 D And C [place] No. 4 Nausea and Vomiting Low 2018 [...] Comments Blood Pressure 128/71 04/11/2020 3:30 PM KEYBOARD SPECIALIST Pulse 99 04/11/2020 3:30 PM KEYBOARD SPECIALIST Temperature 36.7 C (98.1 F) 04/11/2020 3:30 PM KEYBOARD SPECIALIST Respiratory Rate 18 04/11/2020 3:30 PM KEYBOARD SPECIALIST Oxygen Saturation 100% 04/11/2020 3:30 PM KEYBOARD SPECIALIST Inhaled Oxygen Concentration - - Weight 91.2 kg (201 lb) 04/02/2020 12:22 PM KEYBOARD SPECIALIST Height 154.9 cm (5' 1) 03/30/2020 11:34 AM KEYBOARD SPECIALIST Body Mass Index 37.98 03/30/2020 11:34 AM KEYBOARD SPECIALIST Plan of Treatment Health Maintenance Due Date [...] (1 of 2) 02/27/2010 INFLUENZA VACCINE (#1) 2024 11/11/2018, 2016 RSV VACCINE (60+ or ) (1 - 1-dose 75+ series) 02/27/2035 Medical Devices Implanted Type Area Mobile Service Rv Technician Device Identifier Shelf Expiration Date Model / Serial / Lot Cable Assembly Ss 1.8 X 559mm -18 - [id number] Implanted:Qty: 4 on 04/02/2020 by Familia Michelle MD at [facility] Left: Femur ANUSHKA BIOMET 03/11/2026-18 / / [id number] Cable Assembly Ss 1.8 X 559mm - - [id number] Implanted:Qty: 1 on 04/02/2020 by Familia Michelle MD at [facility] Left: Femur ANUSHKA BIOMET 03/11/202403-2384-354-18 / / [id number] Distal Lateral Femoral Locking Plate 18h Lt Implanted:Qty: 1 on 04/02/2020 by Familia Michelle MD at [facility] Plate Left: Femur ANUSHKA BIOMET [id number] / 10/01/2019 4075 Description:Entered by OKSANA 1x Add [id number] [id number] Angie Locking Screw 4.5mm X 46mm Implanted:Qty: 1 on 04/02/2020 by Familia Michelle MD at [facility] Screw Left: Femur ANUSHKA BIOMET [id number] / 10/01/2019 4075 Description:Entered by OKSANA 1x Add Screw Angie Loc 5.5x70mm 61-9002-659-55 - [id number] Implanted:Qty: 2 on 04/02/2020 by Familia Michelle MD at [facility] Screw Left: Femur ANUSHKA BIOMET [id number] / / Description:Load # [id number] Sterilized 10/25/2019 Screw Angie Loc 5.5x80mm [id number] - [id number] Implanted:Qty: 1 on 04/02/2020 by Familia Michelle MD at [facility] Screw Left: Femur ANUSHKA BIOMET [id number] / / Description:Load # [id number] Sterilized 10/25/2019 Screw Angie Loc 4.5x38mm 09-5540-120-45 - [id number] Implanted:Qty: 1 on 04/02/2020 by Familia Michelle MD at [facility] Screw Left: Femur ANUSHKA BIOMET [id number] / / Description:Load # [id number] Sterilized 10/25/2019 Screw Angie Loc 4.5x45mm [id number] - [id number] Implanted:Qty: 1 on 04/02/2020 by Familia Michelle MD at [facility] Left: Femur [employer] [id number] / / Description:Load # [id number] Sterilized 10/25/2019 Angie Cannulated Locking Screw 5.5mm X 75mm Implanted:Qty: 2 on 04/02/2020 by Familia Michelle MD at [facility] Screw Left: Femur ANUSHKA BIOMET [id number] / 10-25-2019 / [id number] Description:Entered by OKSANA 1x Add Button Cable-Ready Risk Assessment Analyst 2.5mm Hex 5.5mm Angie/Prox 26-2512-579-55 - [id number] Implanted:Qty: 4 on 04/02/2020 [facility] Femur [employer] 02/08/2029 [id number] / / [id number] Description:KEIKO [id number] Button Cable-Ready Risk Assessment Analyst 2.5mm Hex 5.5mm Angie/Prox 27-4301-728-55 - [id number] Implanted:Qty: 1 on 04/02/2020 by Familia Michelle MD at [facility] Left: Femur [employer] 02/08/2029 [id number] / / [id number] Left Hip Left Knee Right Hip Right Knee Insurance MEDICARE PART A AND B [facility] RX lark Medicare Part D MEDICARE PART A AND B Advance Directives For more information, please contact: [phone] * Full Code (Latest Code Status on File) Date Activated Date Inactivated Comments 03/30/2020 2:18 PM 04/11/2020 6:38 PM * Full Code Date Activated Date Inactivated Comments 06/22/2018 7:19 PM 06/23/2018 9:18 PM Care Teams Job Coach Relationship Specialty Start Date End Date Stephen Michael MD [address] [place] [address] PCP - General Internal Medicine 06/23/18
== END 2024-11-04 09:49 | disposition home or self-care (01) ==
LOC: ANHFOHIMG 09:49
PROVIDERS: PCP Nurse Practitioner Family; Visit Provider Nurse Practitioner Family
DX: Z12.31 Encounter for screening mammogram for malignant neoplasm of breast (principal)
CPT/HCPCS: 77063; 77067

== ENCOUNTER 2024-11-28 12:51 | Outpatient (CLI) | payer MEDICARE, OTHER, SELFPAY ==
[2024-11-28 13:18] LABS: Hematocrit 36.0 % (37.0-47.0); Hemoglobin 11.2 g/dL (12.0-15.0); Immature Granulocyte Percent A 0.4 % (0-0.5); Lymphocytes Absolute Auto 0.93 K/mm3 (0.9-3.2); Mean Corpuscular HGB Conc 31.1 g/dl (32-36); Mean Corpuscular Hemoglobin 29.6 pg (26-34); Mean Corpuscular Volume 95.2 fl (80-100); Nucleated Red Blood Cells Absolute Auto 0.000 K/mm3 (0.0-0.012); Nucleated Red Blood Cells Perc 0.0 % (0.0-0.2); Platelet Count Result 209 k/mm3 (150-375); Red Blood Count 3.78 M/mm3 (4.2-5.4); White Blood Count 8.0 K/mm3 (4.5-10.0)
[2024-11-28 13:33] LABS: Add Urine Microscopic? YES; Appearance Urine Clear (Clear); Glucose Urine UA Negative (Negative); Leukocyte Esterase Ur 2+ LEU/UL (Negative); Nitrate Urine Negative (Negative); Non Pathogenic Casts 0-2; Specific Grav Ur 1.006 (1.001-1.035)
[2024-11-28 13:41] LABS: Alanine Aminotransferase 10 U/L (6-35); Albumin Level 3.9 g/dL (3.5-5.1); Alkaline Phosphatase 151 U/L (38-126); Anion Gap 8 mmol/L (4-12); Aspartate Amino Transferase 28 U/L (14-36); Bilirubin,Total 0.4 mg/dL (0.2-1.3); Blood Urea Nitrogen 24 mg/dL (7-17); Calcium 8.8 mg/dL (8.4-10.2); Carbon Dioxide 28 mmol/L (22-30); Chloride 98 mmol/L (98-107); Cholesterol 222 mg/dL (0-200); Estimated Glomerular Filt Rate 40; Glucose 91 mg/dL (65-110); HDL Direct 65 mg/dL; Potassium 4.2 mmol/L (3.4-5.0); Sodium 134 mmol/L (137-145); Total Protein 6.9 g/dL (6.3-8.2); Triglycerides 77 mg/dL (<150)
[2024-11-28 14:51] LABS: Vitamin B12 813.0 pg/mL (239-931)
== END 2024-11-28 12:52 | disposition home or self-care (01) ==
PROVIDERS: PCP Nurse Practitioner Family; Visit Provider Nurse Practitioner Family
DX: R39.9 Unspecified symptoms and signs involving the genitourinary system (principal); E11.22 Type 2 diabetes mellitus with diabetic chronic kidney disease; N18.1 Chronic kidney disease, stage 1; R79.89 Other specified abnormal findings of blood chemistry; E05.90 Thyrotoxicosis, unspecified without thyrotoxic crisis or storm; Z98.890 Other specified postprocedural states
CPT/HCPCS: 36415; 80053; 80061; 81001; 82607; 82746; 84100; 85025; 87077; 87086; 87186

== ENCOUNTER 2024-12-01 14:02 | Outpatient (CLI) | payer MEDICARE, OTHER, SELFPAY ==
--- NOTE | ~2024-12-01 | DEXA_ITS ---
Bone Density Report Name: ADRIANA BOYLE Age: 64 Sex: Female Ethnicity: White Date of : 1960 Indication: postmenopausal; screening for osteoporosis; height loss; prior fracture; hysterectomy; Referring Provider: HAYDE JOHNSON Study: Bone densitometry was performed. Exam Date: December 01, 2024 Accession number: [id number] Bone Density: Region BMD T-score Z-score Classification AP Spine(L1-L4) 1.519 4.3 6.0 Normal World Health Organization criteria for BMD impression classify patients as: Normal (T-score at or above -1.0), Osteopenia (T-score between -1.0 and -2.5), or Osteoporosis (T-score at or below -2.5). Previous Exams: Region Exam Age BMD T-score BMD Change BMD Change Date g/cm2 vs Baseline vs Previous AP Spine (L1-L4) 12/01/2024 64 1.519 4.3 0.071 (4.9%)# 0.071 (4.9%)# 11/22/2019 59 1.447 3.6 *Denotes significance at 95% confidence level, LSC for AP Spine = 0.022 g/cm2 # Denotes dissimilar scan types or analysis methods Clinical Information Provided by Patient: Have had a previous hip or vertebral fracture Has had a low trauma fracture Has the following medical conditions: Hysterectomy Patient maximum height was 62 Menopause Age: 44 Drinks caffeinated beverages Onset of menses at age 11 Number of children 3 Impression: The patient has normal bone mass. The patient has risk factors, including: previous fracture. No significant bone loss was observed. Discussion: INCREASED RISK OF FRACTURE DUE TO HISTORY OF FRACTURE. The patient's previous fracture puts the patient at high risk of a future fracture. In untreated patients, the risk of osteoporotic fracture increases approximately two-fold for each 1.0 SD decrease in T-score. Low bone density is not the only risk factor for fracture; also consider factors such as patient's age, frailty or poor health, risk of falling, risk of injury, previous osteoporotic fracture, family history of osteoporosis, cigarette smoking, low body weight, etc. Not everyone with a low trauma fracture has osteoporosis; osteomalacia and other metabolic bone disorders should also be considered. Patients who have osteoporosis should be evaluated for specific diseases and conditions (secondary causes) that may cause or contribute to bone loss and fracture risk. National Osteoporosis Foundation (NOF) recommends pharmacologic intervention for patients with a prior hip or vertebral fracture regardless of BMD T-score. The patient should follow a healthful lifestyle (good nutrition with adequate calcium and vitamin D, and appropriate weight-bearing exercise). Follow-Up: Consider a repeat BMD and Vertebral Fracture Assessment (VFA) exam in 2 years or sooner if medically necessary, to reassess this patient's status. Reported by: TAVO on 12/01/2024 2:42:00 PM. Reviewed, dictated and finalized at location A.
--- OUTSIDE RECORDS SUMMARY | 2024-12-01 15:06 | XMS_ITS | Clinical Summary ---
Author Organization [facility] Address [facility] [facility] [place] [address] Phone Care Team Providers Care Card Folder Name Role Phone Unavailable Primary Care Provider [...]
--- OUTSIDE RECORDS SUMMARY | 2024-12-01 15:06 | XMS_ITS | Clinical Summary ---
Author Organization [facility] Address [address] [place] [address] Phone Care Team Providers Care Echo Tech Name Role Phone Stephen Michael MD Primary Care Provider + Allergies Active Allergy Reactions Criticality Noted Date Comments Cimetidine Hcl Rash Low 06/21/2018 D And C [place] No. 4 Nausea and Vomiting Low 2018 [...] Comments Blood Pressure 128/71 04/11/2020 3:30 PM CARPENTERS SUPERVISOR Pulse 99 04/11/2020 3:30 PM CARPENTERS SUPERVISOR Temperature 36.7 C (98.1 F) 04/11/2020 3:30 PM CARPENTERS SUPERVISOR Respiratory Rate 18 04/11/2020 3:30 PM CARPENTERS SUPERVISOR Oxygen Saturation 100% 04/11/2020 3:30 PM CARPENTERS SUPERVISOR Inhaled Oxygen Concentration - - Weight 91.2 kg (201 lb) 04/02/2020 12:22 PM CARPENTERS SUPERVISOR Height 154.9 cm (5' 1) 03/30/2020 11:34 AM CARPENTERS SUPERVISOR Body Mass Index 37.98 03/30/2020 11:34 AM CARPENTERS SUPERVISOR Plan of Treatment Health Maintenance Due Date [...] series) 02/27/2035 Medical Devices Implanted Type Area Activities Coordinator Device Identifier Shelf Expiration Date Model / Serial / Lot Cable Assembly Ss 1.8 X 559mm -18 - [id number] Implanted:Qty: 4 on 04/02/2020 by Familia Michelle MD at [facility] Left: Femur ANUSHKA BIOMET 03/11/2026-18 / / [id number] Cable Assembly Ss 1.8 X 559mm - - [id number] Implanted:Qty: 1 on 04/02/2020 by Familia Michelle MD at [facility] Left: Femur ANUSHKA BIOMET 03/11/202494-9530-185-18 / / [id number] Distal Lateral Femoral Locking Plate 18h Lt Implanted:Qty: 1 on 04/02/2020 by Familia Michelle MD at [facility] Plate Left: Femur ANUSHKA BIOMET [id number] / 10/01/2019 4075 Description:Entered by OKSANA 1x Add [id number] [id number] Angie Locking Screw 4.5mm X 46mm Implanted:Qty: 1 on 04/02/2020 by Familia Michelle MD at [facility] Screw Left: Femur ANUSHKA BIOMET [id number] / 10/01/2019 4075 Description:Entered by OKSANA 1x Add Screw Angie Loc 5.5x70mm 87-8146-234-55 - [id number] Implanted:Qty: 2 on 04/02/2020 by Familia Michelle MD at [facility] Screw Left: Femur ANUSHKA BIOMET [id number] / / Description:Load # [id number] Sterilized 10/25/2019 Screw Angie Loc 5.5x80mm 83-1256-593-55 - [id number] Implanted:Qty: 1 on 04/02/2020 by Familia Michelle MD at [facility] Screw Left: Femur ANUSHKA BIOMET [id number] / / Description:Load # [id number] Sterilized 10/25/2019 Screw Angie Loc 4.5x38mm 20-4775-366-45 - [id number] Implanted:Qty: 1 on 04/02/2020 by Familia Michelle MD at [facility] Screw Left: Femur ANUSHKA BIOMET [id number] / / Description:Load # [id number] Sterilized 10/25/2019 Screw Angie Loc 4.5x45mm [id number] - [id number] Implanted:Qty: 1 on 04/02/2020 by Familia Michelle MD at [facility] Left: Femur [employer] [id number] / / Description:Load # [id number] Sterilized 10/25/2019 Angie Cannulated Locking Screw 5.5mm X 75mm Implanted:Qty: 2 on 04/02/2020 by Familia Michelle MD at [facility] Screw Left: Femur ANUSHKA BIOMET [id number] / 10-25-2019 / [id number] Description:Entered by OKSANA 1x Add Button Cable-Ready Therapeutic Mentor 2.5mm Hex 5.5mm Angie/Prox 78-3310-763-55 - [id number] Implanted:Qty: 4 on 04/02/[facility] Femur [employer] 02/08/2029 [id number] / / [id number] Description:KEIKO [id number] Button Cable-Ready Therapeutic Mentor 2.5mm Hex 5.5mm Angie/Prox 03-6415-341-55 - [id number] Implanted:Qty: 1 on 04/02/2020 by Familia Michelle MD at [facility] Left: Femur [employer] 02/08/2029 [id number] / / [id number] Left Hip Left Knee Right Hip Right Knee Insurance MEDICARE PART A AND B [facility] RX [email or web address] Medicare Part D MEDICARE PART A AND B Advance Directives For more information, please contact: [phone] * Full Code (Latest Code Status on File) Date Activated Date Inactivated Comments 03/30/2020 2:18 PM 04/11/2020 6:38 PM * Full Code Date Activated Date Inactivated Comments 06/22/2018 7:19 PM 06/23/2018 9:18 PM Care Teams Echo Tech Relationship Specialty Start Date End Date Stephen Michael MD [address] [place] [address] PCP - General Internal Medicine 06/23/18
--- OUTSIDE RECORDS SUMMARY | 2024-12-01 15:06 | XMS_ITS | Encounter Summary ---
Author Organization [facility] Address [address] [place] [address] Care Team Providers Care Freezer Person Name Role Phone Stephen Michael MD Primary Care Provider + Reason for Visit * Reason Onset Date Comments Irregular Heart Beat 04/06/2020 JANEE AT CA PRABHAKAR EX Encounter Details Date Type Department Care Team (Late st Contact Info) Description 04/06/2020 Telephone [facility] Admitting [address] [place] [address] [place] [address] [address] Irregular Heart Beat (JANEE AT [...] COVID-19? No / Unsure 03/30/2020 11:37 AM TOOL ROOM MACHINIST documented as of this encounter Plan of Treatment Not on file documented as of this encounter Visit Diagnoses Not on filedocumented in this encounter Care Teams Freezer Person Relationship Specialty Start Date End Date Stephen Michael MD [address] [place] [address] PCP - General Internal Medicine 06/23/18 documented as of this encounter
--- OUTSIDE RECORDS SUMMARY | 2024-12-01 15:06 | XMS_ITS | Clinical Summary ---
Author Organization [facility] Address [address] [facility] [place] [address] Care Team Providers Care Gun Welder Name Role Phone Stephen Michael MD Primary Care Provider [phone] Source Comments [facility],non-owned Affiliates and Associated Physician Practices is amultiple site organization consisting of ambulatory clinics and hospital sitesin [place], [place], [place] and [place]. This disclosure is being madepursuant to the Care Everywhere program and may not contain all information available regarding this patient. Last updated 17.[facility] Allergies Active Allergy Reactions Criticality Noted Date [...] on file Legal Sex Female 6:43 AM PIPELINE SUPERINTENDENT Gender Identity Not on file Sexual Orientation [...] >60 mL/min/1.7 3m2 10/30/2016 5:19 AM CDT [facility] Blood BLOOD SPECIMEN / Unknown Lab Venipuncture / Unknown 10/30/2016 4:35 AM CDT 10/30/2016 4:49 AM CDT us Lauren Jessica MD LAB - CHEMISTRY ORDERABLES Final Result [facility] [address] [place] [address] from Last 3 Months or Most Recently Relevant to Health Maintenance Insurance [employer] MEDICARE [facility] MEDICARE Advance Directives * Full Code (Latest Code Status on File) Date Activated Date Inactivated Comments 10/29/2016 4:11 PM 11/03/2016 5:09 PM Care Teams Gun Welder Relationship Specialty Start Date End Date Stephen Michael MD [address] [place] [address] PCP - General Internal Medicine 10/29/16
--- OUTSIDE RECORDS SUMMARY | 2024-12-01 15:06 | XMS_ITS | Encounter Summary ---
Author Organization [facility] Address [address] [place] [address] Care Team Providers Care Investment Counselor Name Role Phone Stephen Michael MD Primary Care Provider + Reason for Visit * Reason Onset Date Comments Recurring hyperkalemia 04/03/2020 Gave mess age to dr. Mendoza on cell phone Encounter Details Date Type Department Care Team (Late st Contact Info) Description 04/03/2020 Telephone [facility] Admitting [address] [place] [address] Mitch Feliciano MD [address] [place] [address] Recurring hyperkalemia (Gave message to [...] COVID-19? No / Unsure 03/30/2020 11:37 AM MACHINE MADE SHOE UNIT WORKER documented as of this encounter Functional Status documented as of this encounter Plan of Treatment Not on file documented as of this encounter Visit Diagnoses Not on filedocumented in this encounter Care Teams Investment Counselor Relationship Specialty Start Date End Date Stephen Michael MD [address] [place] [phone] PCP - General Internal Medicine 06/23/18 documented as of this encounter
--- OUTSIDE RECORDS SUMMARY | 2024-12-01 15:06 | XMS_ITS | Clinical Summary ---
Author Organization [facility] Address [address] [place] [address] Phone Care Team Providers Care Broiler Supervisor Name Role Phone Roberta Cuellar MOTEL FRONT DESK ATTENDANT Unavailable [phone] Anju Gracia NP Primary Care Provider [phone] Allergies Active Allergy Reactions Criticality Noted Date [...] on file Legal Sex Female 2:30 PM ROLL BUILDER Gender Identity Female 10/16/2021 2:52 PM CDT [...] of 2) 02/27/2010 Covid-19 Vaccine (3 - 2024-2 6 season) 2024 06/21/2020, 05/31/2020 Influenza Vaccine (#1) 2024 9, 01/11/2017, 01/01/2016, Additional history exists eGFR 06/22/2025 06/22/2024 Lipid Panel 07/12/2025 07/12/2024, 11, 10/08/2021, Additional history exists Procedures Procedure Name Priority Date/Time Associated Diagnosis Comments POCT LIPID PANEL Routine 07/12/2024 1:05 AM CDT Hyperlipidemia associated with type 2 diabetes mellitus (HCC) EGFR Routine 06/22/2024 12:57 PM CDT Iron deficiency anemia, unspecified iron deficiency anemia type from Last 3 Months or Most Recently Relevant to Health Maintenance Results * POCT lipid panel (07/12/2024 1:05 AM CDT) Cholesterol, POC 166 <200 MG/DL HDL, POC 60 >=40 mg/dL Triglycerides, POC 78 <=149 mg/dL LDL Cholesterol POC 90 <=129 mg/dL Chol/HDL Ratio, POC 1.5 NONE Non-HDL Cholesterol, POC 106 NONE mg/dL Cholesterol Total, POC 166 30 - 199 mg/dL Capillary blood 07/12/2024 1 :05 AM CDT Ezequiel Del Toro MD POINT OF CARE TEST ORDERA BLES [...] was last reviewed 2020. Testing performed by: [facility], [address] [place] [address], [place]., [address] Blood 06/22/2024 12:5 7 PM CDT 06/22/2024 12:57 PM CDT us Elysia Singletary NP LAB BLOOD ORDERABLES Final Result Performing Organization Address City/State/[facility] Phone Number [place] [address] [facility] Department [place] [address] from Last 3 Months or Most Recently Relevant to Health Maintenance Insurance MEDICARE [facility] MEDICARE [place] MEDICARE [place] Care Teams Broiler Supervisor Relationship Specialty Start Date End Date Anju Gracia NP [address] [id number] PCP - General Nurse Practitioner 06/22/24 Roberta Cuellar NP [address] [place] [address] Nurse Practitioner Medical Oncology 05/19/22
--- OUTSIDE RECORDS SUMMARY | 2024-12-01 15:06 | XMS_ITS | Patient Health Record ---
Author Organization [facility] Address [address] [facility] [address] [place] [address] Care Team Providers Care Screen Stretcher Name Role Phone Miguel Angel Olivas Unavailable [phone] Reason For Referral No Information Medications Medication [...] LANCETS 33 gauge EACH MISCELLANEOUS *Reorder from [facility] for eRx and Interaction Alerts* 05/12/2019 Active [...] [place] [address] [place] [phone] [id number] ADRIANA BOYLE Self - patient is the insured [place] Medicare Supplement [address] [employer] [place] [id number] ADRIANA BOYLE Self - patient is the insured
== END 2024-12-01 14:03 | disposition home or self-care (01) ==
LOC: ANHFOHIMG 14:04
PROVIDERS: PCP Nurse Practitioner Family; Visit Provider Nurse Practitioner Family
DX: Z78.0 Asymptomatic menopausal state (principal)
CPT/HCPCS: 77080